=== PATIENT | male | born 1955 | race Caucasian/White ===

== ENCOUNTER 2024-09-18 08:57 | Outpatient (AMB) | payer MEDICARE, SELFPAY ==
--- NOTE | 2024-09-18 08:58 | A.OFFVIS_ITS ---
Vital Signs 09/18/24 08:59 Height 5 ft 10 in Weight 207 lb 3.752 oz BMI 29.7 BP 145/69 H Blood Pressure Location Lt brachial Position Sitting Pulse 85 Pulse Source Pulse Oximeter Pulse Oximetry (%) 96 Intake Visit Reasons: Unilateral inguinal hernia Intake Note: Herbie presents in the office as a new patient for a unilateral inguinal hernia. CC: states he has discomfort when he coughs but not really any pains. Allergies No Known Allergies Allergy (Verified 09/18/24 09:00) Medication List - Last Reconciled 09/18/24 by Abdi Ramey MD atenolol 25 mg PO DAILY atorvastatin 10 mg PO DAILY cholecalciferol (vitamin D3) 25 mcg PO DAILY hydroxyzine HCl 25 mg PO BID PRN magnesium 500 mg PO DAILY rt-pj-nlqat-lutein-herbal 293 120 mcg-150 mcg -50 mg (Alive Men's 50 Plus Multivitamin) tabs PO omega 5-ibm-xpb-fish oil 1,000 (120-180) mg (Fish Oil) 1 cap PO DAILY HPI Comments Details: 68-year-old male patient presenting for evaluation of a right inguinal hernia. He reports a prior history of smoking but apparently quit around last year but continues to have daily coughing episodes. He noted a lump developing in the right groin last year and feels it has increased in size. He was recently evaluated by his primary care provider who recommended repair of the right inguinal hernia. He denies a previous history of hernias or hernia surgery. He denies nausea, vomiting, fever, chills, diarrhea or constipation. He denies difficulty with urinating. He is retired but does like to use his electric bike on a daily basis. [facility] Medical History (Updated 09/18/24 @ 09:36 by Abdi Ramey MD) Hypercholesterolemia Hypertension Surgical History (Updated 09/18/24 @ 09:07 by CORDELIA Boss) Hx of colonoscopy Family History (Updated 09/18/24 @ 09:06 by CORDELIA Boss) Father Pancreatic cancer Review of Systems Const All systems reviewed & are unremarkable except as noted in HPI and below Physical Exam Vital Signs: Last Vital Signs Pulse 85 09/18/24 08:59 BP 145/69 H 09/18/24 08:59 Pulse Ox 96 09/18/24 08:59 BMI result Body Mass Index 29.7 Const General: cooperative and no acute distress Nutritional Appearance: well nourished Orientation/consciousness: patient oriented x3 Limitations: no limitations HEENT Head: Yes normocephalic and Yes atraumatic Ears: hearing grossly normal bilaterally Resp Effort & Inspection: normal respiratory effort, no audible wheezes, no cough and no respiratory distress Cardio Jugular venous distension: no JVD GI Other: Soft, nondistended, large pannus, large right inguinal hernia noted in the standing position. Hernia increases in size with Valsalva maneuvers. Hernia reduces when in the supine position with light pressure. No tenderness is elicited with pressure on the right inguinal hernia. No left inguinal hernias identified. Inspection: Yes normal to inspection Skin Other: Warm, dry, no rash Neuro General: patient oriented x3 Extrem General: Yes no clubbing, cyanosis or edema Assessment & Plan Assessment & Plan (1) Right inguinal hernia: Code(s): K40.90 - Unilateral inguinal hernia, without obstruction or gangrene, not specified as recurrent Category: Medical Plan 68-year-old male patient presenting with a recent onset of a right inguinal hernia. He denies a previous history of hernias or hernia surgery. He denies significant discomfort associated with the hernia. On examination he does indeed have a large right inguinal hernia which is reducible with light pressure. I would agree repair of this right inguinal hernia is recommended. I reviewed the procedure, risks, and alternatives of repair of a right inguinal hernia with mesh. He gives his consent for the surgery and will be scheduled as a short-stay surgery at his earliest convenience. Coding Level of Care Code New Pt Level 4 (45347) Diagnoses Right inguinal hernia K40.90
[2024-09-18 08:59] VITALS: BP 145/69; PULSE 85; O2SAT 96; BMI 29.7
--- OUTSIDE RECORDS SUMMARY | 2024-09-18 10:03 | XMS_ITS | Encounter Summary ---
Author Organization [facility] Address [address] [place] [address] Care Team Providers Care Magazine Worker Name Role Phone Solange Medina MD Primary Care Provider [phone] Reason for Visit * Reason Onset Date Comments Appointment 08/26/2024 1st notification Encounter Details Date Type Department Care Team ([facility] st Contact Info) Description 08/26/2024 Telephone Lung Screening Program - [place] [address] [facility] [address] [place] [address] Rose Allison MA Appointment (1st notification) Social History Tobacco Use Types Packs/Day Years Used Date Smoking Tobacco: Every Day Cigarettes Smokeless Tobacco: Never Alcohol Use Standard Drinks/Week Comments Not Currently 93.3 (1 standard drink = 0.6 oz pure alcohol) Sex and Gender Information Value Date Recorded Sex Assigned at Not on file Legal Sex Male 8:57 PM EST Gender Identity Not on file Sexual Orientation Not on file documented as of this encounter Progress Notes * Rose Allison MA - 08/26/2024 1:25 PM EST Herbie Noah was contacted by the Lung Cancer Screening Program today to confirm the appointment oftheir Lung Cancer Screening. The patient is currently scheduled to have their screening on 2024 , at 745 AM at [facility]. Patient declined the program. Patient stated that he no Longer coming to [facility] for medical needs. Chart disassembled. For all screenings scheduled during the week, the patient will check in at Patient Registration on the first floor of the main hospital. For screenings that take place on the weekend or after 5pm, check-in directly in Radiology. The patient was given the Lung Cancer Screening Program phone number, , to contact if they have any additional questions, concerns or need to reschedule. Patients are encouraged to call our office and reschedule if they are exhibiting any cold-like symptoms, have recently been treated for Pneumonia or Influenza (the flu) or have had another CT of their Chest since their last screening. documented in this encounter Plan of Treatment Not on file documented as of this encounter Visit Diagnoses Not on filedocumented in this encounter Care Teams Magazine Worker Relationship Specialty Start Date End Date Solange Medina MD [address] [place] [id number] PCP - General Internal Medicine 02/14/21 documented as of this encounter
--- OUTSIDE RECORDS SUMMARY | 2024-09-18 10:03 | XMS_ITS | Clinical Summary ---
Author Organization [facility] [address] [facility] Address [address] [place] [address] Phone Care Team Providers Care Production Expert Name Role Phone Solange Medina MD Primary Care Provider [phone] Allergies Active Allergy Reactions Criticality Noted Date Comments Clobetasol Propionate Swelling 12/30/2015 [place] Tar Swelling 12/30/2015 Medications magnesium oxide 500 mg magnesium tablet Take by mouth daily. Active multivitamin (MULTIPLE VITAMINS ORAL) Take by mouth daily. Active albuterol HFA (PROAIR HFA ; PROVENTIL HFA ; VENTOLIN HFA) 90 mcg/actuation inhaler Inhale 2 Puffs into the lungs every 6 hours as needed for Cough or Wheezing. 11/06/2023 Active atenoloL (TENORMIN) 25 mg tablet Take 1 tablet (25 mg total) by mouth 1 (one) time each day. 12/07/2023 Active atorvastatin (LIPITOR) 10 mg tablet Take 1 tablet (10 mg total) by mouth 1 (one) time each day. 12/07/2023 Active cholecalciferol (VITAMIN D-3) 25 mcg (1,000 unit) capsule Take by mouth daily. Active hydrOXYzine HCL (ATARAX) 25 mg tablet Take 1 tablet (25 mg total) by mouth 3 (three) times a day if needed. 05/15/2022 Active naproxen (NAPROSYN) 500 mg tablet Take 1 tablet (500 mg total) by mouth 1 (one) time each day. 11/06/2023 Active omega-3 acid ethyl esters (LOVAZA) 1 gram capsule Take 1,000 mg by mouth daily. Active Active Problems Problem Noted Date Diagnosed Date Hypercholesteremia 10/07/2021 Overweight (BMI 25.0-29.9) 10/07/2021 Anxiety 03/09/2016 Paranoid personality (disorder) 03/06/2016 Overview (07/29/2024): Hospitalized 02/2016 Hyponatremia 02/25/2016 Subclinical hypothyroidism 02/08/2016 Abnormal LFTs (liver function tests) 02/02/2016 Overview (07/29/2024): Associated with alcohol abuse, SGPT 97, SGPT 118, alk phos 144 on 10/28/15 Macrocytic anemia 02/02/2016 Overview (07/29/2024): Associated with alcohol abuse, 10.8/31.6 with MCV of 105.7, vitamin B 12 617 on 10/28/15 Psoriatic arthritis 07/03/2013 Overview (07/29/2024): Onset . Enbrel in past. Humira ~ 2008- until summer 2014 (stopped because the condition had improved.) Diverticulitis of colon without hemorrhage 04/21 Overview (07/29/2024): scattered, colonoscopy Dr Mcpherson 03/15, repeat 2016. Did not respond. 12/28 FIT neg 05/31 cologuard positive Alcohol abuse 11/15/2006 Essential hypertension, benign 11/15/2006 Psoriasis 11/15/2006 Overview (07/29/2024): Saw EDY Elizalde 02/28/16 Started at age 29. Humira since ~ 7146-[address]71. Se[address] Dr. Lebron Diamond Tobacco use disorder 11/15/2006 Overview (07/29/2024): Refused LDCT 07/30 (lack of insurance) 08/30 LDCT stable. 12 mo 08/31, 09/01. 12 mo Encounters Date Type Department Care Team Description 08/26/2024 Telephone Lung Screening Program - [address] [address] Rose Allison MA Appointment (1st notification) from Last 3 Months Immunizations Name Administration Dates Next Due Influenza trivalent, 0.5mL ( Fluad) 65yo and older 04/03/2023 Influenza trivalent, 0.5mL, preservative free (Fluarix; FluLaval; Fluzone) ages 6mo and older (Afluria) 3 years and older 04/22/2014,03/18/2009,05/06/2007 Brisk.io SARS-CoV-2 COVID-19, mRNA, LNP-S, preservative free 04/03/2023,04/24/2022,11/24/2021,04/08 Pneumococcal conjugate 13 va lent (Prevnar 13, PCV13) 2mo and older 05/15/2022 Pneumococcal conjugate 20 va lent (Prevnar 20, PCV 20) 2mo and older 05/11/2023 Pneumococcal polysaccharide 23 valent (Pneumovax 23) 2yo and older 09/25/2013 Respiratory syncytial virus (RSV), unspecified 04/20/2023 Td Tetanus diptheria (Tdvax) 7yo and older 05/22/2023,07/10/2006 Tdap Tetanus diptheria acell ular pertussis (Boostrix; Adacel) 7yo and older 07/03/2013 Zoster Live 06/28/2021,04/28/2021 Zoster recombinant (Shingrix ) 19yo and older 06/28/2021,04/28/2021 Surgical History Surgery Date Site/Laterality Comments COLONOSCOPY 04/04/07 PROCEDURE: HISTORICAL COLONOSCOPY; COMMENT: diverticulosis; repeat in ten years Medical History Medical History Date Comments Tobacco use disorder 11/15/2006 DX:Tobacco use disorder Alcohol abuse, unspecified 11/15/2006 DX:Al cohol abuse, unspecified Other psoriasis and similar disorders 11/15/2006 DX:Other psoriasis and similar disorders; COMMENT: Sees Dr Lebron Diamond Essential hypertension, benign 11/15/2006 D X:Essential hypertension, benign Diverticulosis of colon (wit hout mention of hemorrhage) 04/21/2007 DX:Diverticulosis of colon ( without mention of hemorrhage); COMMENT: scattered, colonoscopy Dr Mcpherson 03/15, repeat 2017 Family History Medical History Relation Name Comments Mental illness Father sleep apnea Diabetes Mother obesity Asthma Sister Thyroid disease Sister Relation Name Status Comments Father (Age 74) pancreatic cancer Maternal Grandfather Maternal Grandmother Mother ischemic bowel Paternal Grandfather Paternal Grandmother Sister Alive Social History Tobacco Use Types Packs/Day Years Used Date Smoking Tobacco: Every Day Cigarettes Smokeless Tobacco: Never Alcohol Use Standard Drinks/Week Comments Not Currently 93.3 (1 standard drink = 0.6 oz pure alcohol) Sex and Gender Information Value Date Recorded Sex Assigned at Not on file Legal Sex Male 8:57 PM EST Gender Identity Not on file Sexual Orientation Not on file Obstetrics History Last Filed Vital Signs Vital Sign Reading Time Taken Comments Blood Pressure 122/71 08/22/2023 8:40 AM EST Pulse 69 08/22/2023 8:40 AM EST Temperature - - Respiratory Rate - - Oxygen Saturation - - Inhaled Oxygen Concentration - - Weight 89.4 kg (197 lb 3.2 oz) 08/22/2023 8:40 A M EST Height 177.8 cm (5' 10 ) 08/22/2023 8:40 AM EST Body Mass Index 28.3 08/22/2023 8:40 AM EST Plan of Treatment Health Maintenance Due Date Last Done Comments Hepatitis A Vaccines (1 of 2 - Risk 2-dose series) 11/10/1975 Colorectal Cancer Screening: Stool Based Tests (FOBT/FIT) 06/17/2022 Depression Screening 06/17/2022 Falls Risk Assessment 06/17/2022 Medicare Annual Wellness Visit 06/17/2022 Social Influencers of Health Screening 06/17/2022 COVID-19 Vaccine ( season) 2024 10/25/2023, 04/03/2023, 04/24/2022, Additional history exists Hypertension/CHF/CAD Annual BMP Blood Test 05/22/2024 05/22/2023 Lung Cancer Screening (Low Dose CT) 09/02/2025 09/02/2024, 09/10/2023, 09/06/2022, Additional history exists Cholesterol Screening (Lipid Panel) 05/22/2028 05/22/2023 RSV Immunization Patients 60+ Years Old (1 - 1-dose 75+ series) 11/10/2031 04/20/2023 DTaP,Tdap,and Td Vaccines (4 - Td or Tdap) 05/22/2033 05/22/2023, 07/03/2013, 07/10/2006 Hepatitis C Screening Completed 02/03/2014 Zoster Vaccines Completed 06/28/2021, 06/09, 04/28/2021, Additional history exists Abdominal Aortic Aneurysm (AAA) Screen Completed 05/17/2022, 05/17/2022 RSV Immunization Patients Under 20 months Aged Out 04/20/2023 No longer eligible based on patient's age to complete this topic Influenza Vaccine Completed 03/13/2024, , 04/22/2014, Additional history exists Pneumococcal Vaccine: 50+ Years Completed 05/20/2024, 05/11/2023, 05/15/2022, Additional history exists HIB Vaccines Aged Out No longer eligi ble based on patient's age to complete this topic HPV Vaccines Aged Out No longer eligi ble based on patient's age to complete this topic Hepatitis B Vaccines Aged Out No long er eligible based on patient's age to complete this topic IPV Vaccines Aged Out No longer eligi ble based on patient's age to complete this topic MMR Vaccines Aged Out No longer eligi ble based on patient's age to complete this topic Meningococcal ACWY Vaccine Aged Out N o longer eligible based on patient's age to complete this topic Meningococcal B Vacine Aged Out No lo nger eligible based on patient's age to complete this topic Varicella Vaccines Aged Out No longer eligible based on patient's age to complete this topic Procedures Procedure Name Priority Date/Time Associated Diagnosis Comments CT LUNG SCREENING LOW DOSE Routine 09/10/2023 5:00 AM EST Encounter for screening for malignant neoplasm of respiratory organs ANNUAL BMP BLOOD TEST Routine 05/22/2023 LIPID PANEL Routine 05/22/2023 US ABDOMINAL AORTA REAL TIME SCREEN STUDY AAA Routine 05/17/2022 7:57 AM EST Encounter for screening for cardiovascular disorders HEPATITIS C SCREENING Routine 02/03/2014 from Last 3 Months or Most Recently Relevant to Health Maintenance Results * CT LUNG SCREENING LOW DOSE (09/10/2023 5:00 AM EST) Anatomical Region Laterality Modality Computed Tomogra phy 09/08/2023 7:21 AM EST Narrative 09/10/2023 5:00 AM EST [facility] Diagnostic Imaging Department [address] [place] [address] Patient: ??KATHYJACQUIE ?/Age/Sex: 1955 - 67 - M Unit#: ??[id number] ? Location/Status: ??SPDICATLS/REG CLI ? Mnemonic/Ordering Site: ??CTLUNGLD/SPCT Ordering Physician: ??VIJI HAYDEN MD CT Lung Screening Low Dose - 09/08/23725 Report Status:Signed Indication: Greater than 20 total pack-year smoking history, asymptomatic current smoker Technique: Low-dose CT scan of the chest obtained as a lung cancer screening study. Multiplanar reformatted images were obtained. ??Dose reduction technique: ASIR (Adaptive statistical iterative reconstruction) and/or AEC (automated exposure control) COMPARISON: August 2022. FINDINGS: Lack of intravenous contrast limits evaluation of the julian, vascular structures and visualized abdominal viscera. Lungs/airways: Trachea and central airways are patent. ??Mild bronchial wall thickening. ??Emphysematous changes. ??Atelectasis in the lingula, similar to prior. 1 mm solid nodule left upper lobe (series 3, image 79), similar to prior. Base of the neck, mediastinum, heart, chest wall, vessels: ??The assessment of hilar lymphadenopathy is difficult without the use of IV contrast. ??No enlarged mediastinal lymphadenopathy. ??Coronary artery calcifications. Upper abdomen: This study was performed without contrast and with lower than standard dose. These factors reduce the sensitivity for detection of small lesions in the upper abdomen. No significant abnormality is seen Bones/soft tissues: Unremarkable IMPRESSION: No suspicious pulmonary nodules Lung RADS 2: Benign Appearance or Behavior - Continue annual screening with LDCT in 12 months. Dictating Physician: ??MAITE MELGOZA MD Electronically Signed by: ??MAITE MELGOZA MD Dic Date/Time: ??09/10/23 0457 Sign date/Time: ??09/10/23 0501 Procedure Note Maite Melgoza MD - 02/25/2024 [facility] Diagnostic Imaging Department [address] [place] [address] Patient: KATHYJACQUIEO.B./Age/Sex: 1955 - 67 - M Unit#: [id number] Location/Status: [facility] Mnemonic/Ordering Site: [facility] Ordering Physician: VIJI HAYDEN MD CT Lung Screening Low Dose - 09/08/23725 Report Status:Signed Indication: Greater than 20 total pack-year smoking history,asymptomatic current smoker Technique: Low-dose CT scan of the chest obtained as a lung cancerscreening study. Multiplanar reformatted images were obtained. Dose reductiontechnique: ASIR (Adaptive statistical iterative reconstruction) and/or AEC(automated exposure control) COMPARISON: August 2022. FINDINGS: Lack of intravenous contrast limits evaluation of the julian,vascular structures and visualized abdominal viscera. Lungs/airways: Trachea and central airways are patent. Mild bronchialwall thickening. Emphysematous changes. Atelectasis in the lingula, similarto prior. 1 mm solid nodule left upper lobe (series 3, image 79), similar toprior. Base of the neck, mediastinum, heart, chest wall, vessels: The assessmentof hilar lymphadenopathy is difficult without the use of IV contrast. Noenlarged mediastinal lymphadenopathy. Coronary artery calcifications. Upper abdomen: This study was performed without contrast and with lowerthan standard dose. These factors reduce the sensitivity for detection ofsmall lesions in the upper abdomen. No significant abnormality is seen Bones/soft tissues: Unremarkable IMPRESSION: No suspicious pulmonary nodules Lung RADS 2: Benign Appearance or Behavior - Continue annual screeningwith LDCT in 12 months. Dictating Physician: MAITE MELGOZA MD Electronically Signed by: MAITE MELGOZA MD Dic Date/Time: 09/10/23 045 Sign date/Time: 09/10/23 0500 Viji Hayden MD IMG CT PROCEDURES Final Result * Annual BMP Blood Test (05/22/2023) Pathologist [facility] Annual BMP Blood Test abstracted Result [facility] Historical Provider HEALTH MAINTENANCE Final Result * Lipid panel (05/22/2023) Pathologist [facility] LDL/HDL Ratio 3 0 - 4 Triglycerides 73 0 - 150 mg/dL Cholesterol 140 0 - 200 mg/dL HDL 46 >=40 mg/dL LDL Cholesterol 80 0 - 100 mg/dL Blood Venous blood specimen / Unknown Result [facility] Historical Provider LAB BLOOD ORDERABLES Gabbi l Result * ABDOMINAL AORTA REAL TIME SCREEN STUDY AAA (05/17/2022 7:57 AM EST) Anatomical Region Laterality Modality Ultrasound 05/15/2022 9:49 AM EST Narrative 05/17/2022 8:03 AM EST History: Screening for abdominal aortic aneurysm. Ultrasound of the abdominal aorta: The abdominal aorta is normal in course, caliber and configuration. Proximal aortic AP diameter is 2.2 cm maximum. Mid aortic diameter is 1.7 cm, and distal aortic diameter is 1.7 cm. The common iliac arteries are normal in caliber as well. IMPRESSION: Negative screening examination for abdominal aortic aneurysm. Procedure Note Tomas Gilmore MD - 08/14/2023 History: Screening for abdominal aortic aneurysm. Ultrasound of the abdominal aorta: The abdominal aorta is normal incourse, caliber and configuration. Proximal aortic AP diameter is 2.2 cm maximum. Mid aorticdiameter is 1.7 cm, and distal aortic diameter is 1.7 cm. The common iliac arteries are normalin caliber as well. IMPRESSION: Negative screening examination for abdominal aortic aneurysm. Solange Medina MD IMG US PROCEDURES Final Result * Hepatitis C Screening (02/03/2014) Hepatitis C Screening abstracted Historical Provider HEALTH MAINTENANCE Final Result from Last 3 Months or Most Recently Relevant to Health Maintenance Insurance [employer] Care Teams Production Expert Relationship Specialty Start Date End Date Solange Medina MD [address] [place] [id number] PCP - General Internal Medicine 02/14/21
--- OUTSIDE RECORDS SUMMARY | 2024-09-18 10:03 | XMS_ITS | Encounter Summary ---
Author Organization Formerly [facility] Address [address] [place] [address] Care Team Providers Care [place] Machine Operator Name Role Phone Aminata Linda PA-C Primary Care Provi chrissy Nahid Preciado MD Unavailable [phone] Encounter Details Date Type Department Care Team (Late st Contact Info) Description 08/27/[address] [phone] Aminata Linda PA-C [address] [place] [address] Social History Tobacco Use Types Packs/Day Years Used Date Smoking Tobacco: Former Cigarettes Q uit: 05/21/2024 Smokeless Tobacco: Former Comments:currently vaping Alcohol Use Standard Drinks/Week Comments Not Currently 0 (1 standard drink = 0.6 oz pur e alcohol) [facility] Utilities Answer Date Recorded In the past 12 months has [employer] electric, gas, oil, or water company threatened to shut off services in your home? No 05/19/2024 Social Connection and Isolation Panel [NHANES] A nswer Date Recorded In a typical week, how many times do you talk on the phone with family, friends, or neighbors? Never 05/19/2024 Frequency of Social Gatherings with Friends and Family Not on file 05/19/2024 Attends Anglican Services Not on file 05/19 Active Member of Clubs or Organizations Not on f ile 05/19/2024 Attends Club or Organization Meetings Not on serenity e 05/19/2024 Marital Status Not on file 05/19/2024 AUDIT-C Answer Date Recorded Q1: How often do you have a drink containing alc ohol? Never 05/19/2024 Average Number of Drinks Not on file 024 Frequency of Binge Drinking Not on file 05/09 PHQ-2 Answer Date Recorded PHQ-2 Total Score 0 05/19/2024 Hunger Vital Sign Answer Date Recorded Within the past 12 months, y ou worried that your food would run out before you got the money to buy more. Never true 05/19/20 24 Within the past 12 months, t he food you bought just didn't last and you didn't have money to get more. Never true 05/19/2024 PRAPARE - Transportation Answer Date Re corded In the past 12 months, has l ack of transportation kept you from medical appointments or from getting medications? No 05/09 In the past 12 months, has l ack of transportation kept you from meetings, work, or from getting things needed for daily living? No 05/19/2024 Housing Stability Vital Sign Answer Jed e Recorded In the last 12 months, was t here a time when you were not able to pay the mortgage or rent on time? No 05/19/2024 In the past 12 months, how m any times have you moved where you were living? 0 05/19/2024 At any time in the past 12 m [facility], were you homeless or living in a custodial (including now)? No 05/19/2024 Sex and Gender Information Value Date Recorded Sex Assigned at Male 11/08/2023 3:45 AM EDT Gender Identity Male 11/08/2023 3:45 AM EDT Sexual Orientation Heterosexual (straight) 11/07 3:45 AM EDT documented as of this encounter Miscellaneous Notes * Telephone Encounter - Lizy Gilliland MA - 08/27/2024 2:04 PM EST Spoke with Herbie and he is aware of his results and to recheck a B12 and folate. Orders are at [facility]. Patient also aware that Dr Belle isn't accepting new patients and to call his insurance companyto see where he can go. * Telephone Encounter - Joan Patel - 08/27/2024 9:25 AM EST Patient is calling back in regards to call below for labs, fyi he is home he stated, * Telephone Encounter - Lizy Gilliland MA - 08/27/2024 8:46 AM EST Left message for patient to call for lab results from Dermatology. B12 and Folic labs were placed in [facility]. Faxed labs to [facility]. * Telephone Encounter - Aminata Linda PA-C - 08/27/2024 7:56 AM EST Is let patient know received his blood work from dermatology that was done at [facility]. I do want to check a vitamin B12 and folic acid since his MCV is up and his alk phos is also up. Someone to put some orders into [facility] for patient to do. Please fax platelet count labs to [facility] hematology patient is established there for low plateletcount. Please tell patient to call and follow-up with them. documented in this encounter Plan of Treatment Upcoming Encounters Date Type Department Care Team (Late st Contact Info) Description 09/22/2024 8:00 AM EDT Appointment [facility] Laboratory & Rehabilitation [address] [place] [phone] Panchito Hurley MD [address] [facility] [address] [place] [address] 11/06/2024 2:45 PM EDT Appointment [facility] [place] [address]ARY[address] [place] [address] Nahid Preciado MD [address] [place] [address] 12/11/2024 11:00 AM EDT Office Visit [facility] [address] [facility] [address] [place] [address] Aminata Linda PA-C [address] [place] [address] 01/20/2025 1:45 PM EDT Office Visit [facility] Pul[facility] [place] [address] [place] [phone] Panchito Hurley MD [address] [place] [phone] documented as of this encounter Visit Diagnoses Not on filedocumented in this encounter Care Teams [place] Machine Operator Relationship Specialty Start Date End Date Aminata Linda PA-C [address] [place] [address] PCP - General Internal Medicine 11/07/23 Nahid Preciado MD [address] [place] [phone] Primary Tester Compressed Gases Cardiovascular Disease 08/11/24 documented as of this encounter
--- OUTSIDE RECORDS SUMMARY | 2024-09-18 10:03 | XMS_ITS | Encounter Summary ---
Author Organization [facility] Address [address] [place] [address] Care Team Providers Care Oracle Analyst Name Role Phone Aminata Linda PA-C Primary Care Provi chrissy Nahid Preciado MD Unavailable [phone] Encounter Details Date Type Department Care Team (Late st Contact Info) Description 08/26/[address] [phone] Aminata Linda PA-C [address] [place] [address] Social History Tobacco Use Types Packs/Day Years Used Date Smoking Tobacco: Former Cigarettes Q uit: 05/21/2024 Smokeless Tobacco: Former Comments:currently vaping Alcohol Use Standard Drinks/Week Comments Not Currently 0 (1 standard drink = 0.6 oz pur e alcohol) [facility] Utilities Answer Date Recorded In the past 12 months has [employer] electric, gas, oil, or water company threatened to shut off services in your home? No 05/19/2024 Social Connection and Isolation Panel [NHANES] A nswer Date Recorded In a typical week, how many times do you talk on the phone with family, friends, or neighbors? Never 05/19/2024 Frequency of Social Gatherings with Friends and Family Not on file 05/19/2024 Attends Confucianism Services Not on file 05/19 Active Member [...] any time in the past 12 m [facility], were you homeless or living in a [place] [facility] [place] facility (including now)? No 05/19/2024 Sex and Gender Information Value Date Recorded Sex Assigned at Male 11/08/2023 3:45 AM EDT Gender Identity Male 11/08/2023 3:45 AM EDT Sexual Orientation Heterosexual (straight) 11/07 3:45 AM EDT documented as of this encounter Miscellaneous Notes * Telephone Encounter - Lizy Gilliland MA - 08/26/2024 9:38 AM EST Referral was closed out for GI patient didn't follow thru. Referral sent to Dr Belle at [facility] and referral for general surgery to Dr Ramey * Telephone Encounter - Aminata Linda PA-C - 08/26/2024 9:12 AM EST Pt [place] [facility] he is overdue for his colonoscopy. documented in this encounter Plan of Treatment Upcoming Encounters Date Type Department Care Team (Late st Contact Info) Description 09/22/2024 8:00 AM EDT Appointment [facility] Pulmonary Laboratory & Rehabilitation [address] [place] [phone] Panchito Hurley MD [address] [place] [phone] 11/06/2024 2:45 PM EDT Appointment [facility] [place] [address] [phone] Nahid Preciado MD [address] [place] [phone] 12/11/2024 11:00 AM EDT Office Visit [address] [place] [phone] Aminata Linda PA-C [address] [place] [address] 01/20/2025 1:45 PM EDT Office Visit [facility] Pulmonary [place] [address] [place] [phone] Panchito Hurley MD [address] [phone] documented as of this encounter Visit Diagnoses Not on filedocumented in this encounter Care Teams Oracle Analyst Relationship Specialty Start Date End Date Aminata Linda PA-C [address] [place] [address] PCP - General Internal Medicine 11/07/23 Nahid Preciado MD [address] [place] [phone] Primary Concrete Mixing Truck Driver Cardiovascular Disease 08/11/24 documented as of this encounter
--- OUTSIDE RECORDS SUMMARY | 2024-09-18 10:03 | XMS_ITS | Clinical Summary ---
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 11/06/2023 Active triamcinolone (KENALOG) 0.1 % cream PLEASE SEE ATTACHED FOR DETAILED DIRECTIONS 09/20/2023 Active betamethasone dipropionate augmented (DIPROLENE-AF) 0.05 % cream Apply topically 2 (two) times a day. Active omega-3 fatty acids (FISH OIL) 1000 MG Cap capsule Take by mouth. Active cholecalciferol (CHOLECALCIFEROL) 25 MCG (1000 UT) tablet Take 1 tablet (1,000 Units total) by mouth daily. Active Multiple Vitamin tablet Take 1 tablet by mouth daily. Active atorvastatin (LIPITOR) 10 MG tabletIndications:Oth er hyperlipidemia TAKE 1 TABLET BY MOUTH EVERY DAY 90 tablet 1 03/06/2024 Active atenolol (TENORMIN) 25 MG tabletIndications:Poonam esperanza hypertension TAKE 1 TABLET (25 MG TOTAL) BY MOUTH DAILY. 90 tablet 1 03/06/2024 Active hydrOXYzine HCl (ATARAX) 25 MG tabletIndications:Anx iety Take 1 tablet (25 mg total) by mouth 3 (three) times a day. 60 tablet 05/20/2024 Active risankizumab-rzaa (Skyrizi Pen) 150 mg/mL Solution Auto-injector Inject 1 mL (150 mg total) under the skin. 07/28/2024 Active Active Problems Problem Noted Date Diagnosed Date Shortness of breath 09/08/2024 Psoriatic arthritis 05/20/2024 History of ETOH abuse 05/20/2024 Anxiety 05/20/2024 Thrombocytopenia 11/14/2023 Primary hypertension 11/07/2023 Other hyperlipidemia 11/07/2023 Tobacco use 11/07/2023 Overview (11/07/2023): 45- 100+pack yr Psoriasis 11/07/2023 Resolved Problems Problem Noted Date Diagnosed Date Resolved Date Overweight (BMI 25.0-29.9) 10/07/2021 0 08/26/2024 Paranoid personality (disorder) 03/06/2016 08/26/2024 Overview (08/26/2024): Hospitalized 02/2016 Hyponatremia 02/25/2016 08/26/2024 Subclinical hypothyroidism 02/08/2016 0 08/26/2024 Abnormal LFTs (liver function tests) 02/02/2016 08/26/2024 Overview (08/26/2024): Associated with alcohol abuse, SGPT 97, SGPT 118, alk phos 144 on 10/28/15 Macrocytic anemia 02/02/2016 08/26/2024 Overview (08/26/2024): Associated with alcohol abuse, 10.8/31.6 with MCV of 105.7, vitamin B 12 617 on 10/28/15 Diverticulitis of colon without hemorrhage 04/21/2007 08/26/2024 Overview (08/26/2024): scattered, colonoscopy Dr Mcpherson 03/15, repeat 2016. Did not respond. 12/28 FIT neg 05/31 cologuard positive Alcohol abuse 11/15/2006 08/26/2024 Encounters Date Type Department Care Team Description 09/15/[address] [phone] Aminata Linda PA-C 09/08/2024 9:45 AM EST Office Visit [facility] Pulmonary [address] [phone] Jeanette Mcgrath MD Tobacco use (Primary Dx); Shortness of breath 09/08/2024 Travel 08/27/2024 Orders Only [address] [phone] Aminata Linda PA-C Abnormal CBC (Primary Dx) 08/27/[address] [phone] Aminata Linda PA-C 08/26/2024 9:00 AM EST Office Visit [address] [phone] Aminata Linda PA-C Screen for colon cancer (Primary Dx); Non-recurrent unilateral inguinal hernia without obstruction or gangrene; Primary hypertension; Tobacco use; Thrombocytopenia; Psoriasis; Abnormal EKG; Chronic cough 08/26/[address] [phone] Aminata Linda PA-C 08/26/[address] [phone] Aminata Linda PA-C 08/26/[address] [phone] Aminata Linda PA-C 08/26/2024 Travel 08/04/2024 9:15 AM EST Ancillary Procedure [facility] [address] [place] [phone] Nahid Preciado MD BENZ (dyspnea on exertion); Abnormal ECG 08/04/2024 Travel 07/22/2024 Orders Only [address] [phone] Nahid Preciado MD BENZ (dyspnea on exertion) (Primary Dx) 07/21/2024 8:00 AM EST Consult [address] [phone] Aminata Linda PA-C Longhitano, Joseph P, MD Encounter for consultation (Primary Dx); BENZ (dyspnea on exertion); Abnormal ECG 07/21/[address] [phone] Nahid Preciado MD Appointment 07/21/2024 Travel from Last 3 Months Immunizations Name Administration Dates Next Due Influenza, Unspecified 03/13/2024 Pneumococcal Conjugate 20-Valent 05/20/2024 Zoster Vaccine Recombinant (Shingrix) 06/28/2021 ,04/28/2021 Family History Medical History Relation Name Comments Pancreatic cancer Father Other Mother Ischemic coliti s Asthma Sister Relation Name Status Comments Father Mother Sister Alive Social History Tobacco Use Types Packs/Day Years Used Date Smoking Tobacco: Former Cigarettes 2.3 41.9 1 975 - 05/22/2024 Smokeless Tobacco: Former Comments:currently vaping Alcohol Use Standard Drinks/Week Comments Not Currently 0 (1 standard drink = 0.6 oz pur e alcohol) [facility] Utilities Answer Date Recorded In the past 12 months has e electric, gas, oil, or water company threatened to shut off services in your home? No 05/19/2024 Social Connection and Isolation Panel [NHANES] A nswer Date Recorded In a typical week, how many times do you talk on the phone with family, friends, or neighbors? Never 05/19/2024 Frequency of Social Gatherings with Friends and Family Not on file 05/19/2024 Attends Sikhism Services Not on file 05/19 Active Member [...] any time in the past 12 m [facility], were you homeless or living in a group home (including now)? No 05/19/2024 Sex and Gender Information Value Date Recorded Sex Assigned at Male 11/08/2023 3:45 AM EDT Gender Identity Male 11/08/2023 3:45 AM EDT Sexual Orientation Heterosexual (straight) 11/07 3:45 AM EDT Last Filed Vital Signs Vital Sign Reading Time Taken Comments Blood Pressure 120/80 09/08/2024 9:38 AM EST Pulse 57 09/08/2024 9:38 AM EST Temperature 35.8 ??C (96.5 ??F) 09/08/2024 9:38 AM ES T Respiratory Rate 18 08/26/2024 8:42 AM EST Oxygen Saturation 96% 09/08/2024 9:38 AM EST Inhaled Oxygen Concentration - - Weight 97.5 kg (215 lb) 09/08/2024 9:38 AM EST Height 177.8 cm (5' 10 ) 09/08/2024 9:38 AM EST Body Mass Index 30.85 09/08/2024 9:38 AM EST Plan of Treatment Upcoming Encounters Date Type Department Care Team (Late st Contact Info) Description 09/22/2024 8:00 AM EDT Appointment [facility] Pulmonary Laboratory & Rehabilitation [address] [place] [phone] Jeanette Mcgrath MD [address] [place] [phone] 11/06/2024 2:45 PM EDT Appointment [facility] [place] [address] [phone] Nahid Preciado MD [address] [place] [address] [place] [address] 12/11/2024 11:00 AM EDT Office Visit [address] [place] [phone] Aminata Linda PA-C [address] [place] [address] 01/20/2025 1:45 PM EDT Office Visit [facility] Pulmonary [address] [phone] Jeanette Mcgrath MD [address] [phone] Health Maintenance Due Date Last Done Comments Hepatitis C Virus Screening 1956 Quantiferon Gold TB 1966 Physical 1974 DTaP/Tdap/Td Vaccines (1 - Tdap) 11/10/1975 Colonoscopy 2001 Abdominal Aortic Aneurysm (AAA) Screening 2021 COVID-19 Vaccine (5 - season) 2024 04/03/2023, 04/24/2022, 11/24/2021, Additional history exists Annual Wellness Visit 05/21/2025 05/20/2024 Lung Cancer Screening (LDCT) 09/02/2025 09/02/2024 RSV Vaccine 60 years and older and Patients (1 - 1-dose 75+ series) 11/10/2031 Zoster (Shingles) Vaccine Completed 06/28/2021, Influenza Vaccine Completed 03/13/2024, , 04/22/2014, Additional history exists Pneumococcal Vaccines 50+ Completed 05/20/2024 Hepatitis B Vaccines Aged Out No long er eligible based on patient's age to complete this topic Procedures Procedure Name Priority Date/Time Associated Diagnosis Comments COMPLETE BLOOD COUNT, WITH DIFFERENTIAL Routine 09/03/2024 8:17 AM EST Thrombocytopenia PSA Routine 09/03/2024 8:11 AM EST Tobacco use Primary hypertension Psoriasis Other hyperlipidemia CT CHEST LOW DOSE CANCER ANNUAL SCREENING Routine 09/02/2024 9:26 AM EST Tobacco use VITAMIN B12 AND FOLATE Routine 08/29/2024 9:21 AM EST Abnormal CBC EXERCISE SPECT MYOCARDIAL PERFUSION Routine 08/04/2024 9:55 AM EST BENZ (dyspnea on exertion) Abnormal ECG COMPREHENSIVE METABOLIC PANEL Routine 07/25/2024 9:07 AM EST BENZ (dyspnea on exertion) LIPOPROTEIN (A) Routine 07/25/2024 9:07 AM EST BENZ (dyspnea on exertion) LIPID PANEL REFLEX DIRECT LDL Routine 07/25/2024 9:07 AM EST BENZ (dyspnea on exertion) ECG 12-LEAD Routine 07/21/2024 7:59 AM EST Encounter for consultation from Last 3 Months Results * (ABNORMAL) Complete Blood Count, with Differential (09/03/2024 8:17 AM EST) White Blood Cell Count 6.1 3.8 - 10.8 Thousand/ uL [facility] Red Blood Cell Count 4.32 4.20 - 5.80 Million/u L [facility] Hemoglobin 14.5 13.2 - 17.1 g/dL [facility] Hematocrit 42.6 38.5 - 50.0 % [facility] MCV 98.6 80.0 - 100.0 fL [facility] MCH 33.6(H) 27.0 - 33.0 pg [facility] MCHC 34.0 32.0 - 36.0 g/dL [facility] Comment: For adults, a slight decrease in the calculated MCHC value (in the range of 30 to 32 g/dL) is most likely not clinically significant; however, it should be interpreted with caution in correlation with other red cell parameters and the patient's clinical condition. RDW 11.8 11.0 - 15.0 % [facility] Platelet Count 201 140 - 400 Thousand/ uL [facility] MPV 9.4 7.5 - 12.5 fL [facility] Abs Neutrophils Auto 4,301 1,500 - 7,800 cells/uL [facility] Abs Lymphocytes Auto 1,104 850 - 3,900 cells/uL [facility] Abs Monocytes Auto 439 200 - 950 cells/uL [facility] Abs Eosinophils Auto 207 15 - 500 cells/uL [facility] Abs Basophils Auto 49 0 - 200 cells/uL [facility] Neutrophils Auto 70.5 % [facility] Lymphocytes Auto 18.1 % [facility] Monocytes Auto 7.2 % [facility] Eosinophils Auto 3.4 % [facility] Basophils Auto 0.8 % [facility] Comment: ? Your request to have a duplicate copy faxed has been acknowledged. ?Queued to: ??[id number] Blood specimen (specimen) Blood specimen / Unknown 09/03/2024 8:17 AM EST 09/03/2024 8:18 AM EST Narrative [facility] - 09/03/2024 8:32 PM EST FASTING:NO FASTING: NO Aminata Linda PA-C LAB BLOOD O RDERABLES [facility] [address] [place] [phone] * PSA (09/03/2024 8:11 AM EST) PSA, Total 0.81 < OR = 4.00 ng/mL [facility] Comment: The total PSA value from this assay system is standardized against the WHO standard. The test result will be approximately 20% lower when compared to the equimolar-standardized total PSA ([place]). Comparison of serial PSA results should be interpreted with this fact in mind. This test was performed using the Siemens chemiluminescent method. Values obtained from different assay methods cannot be used interchangeably. PSA levels, regardless of value, should not be interpreted as absolute evidence of the presence or absence of disease. ? Your request to have a duplicate copy faxed has been acknowledged. ?Queued to: ??[id number] Blood specimen (specimen) Blood specimen / Unknown 09/03/2024 8:11 AM EST 09/03/2024 8:12 AM EST Narrative [facility] - 09/03/2024 10:46 PM EST SPLIT 11/13/2023 FROM [id number] FASTING:NO FASTING: NO Aminata Linda PA-C LAB BLOOD O RDERABLES [employer] system master[employer] [address] [place] [phone] * CT Chest Low Dose Cancer Annual Screening (09/02/2024 9:26 AM EST) Anatomical Region Laterality Modality Chest Computed Tomogra phy 09/02/2024 9:00 AM EST 09/02/2024 9:00 AM EST Impressions 09/05/2024 3:38 PM EST 1. ??No evidence of pulmonary malignancy. 2. ??Mild emphysema and bronchial thickening. 3. ??Moderate coronary calcifications. ASSESSMENT: 1. Lung-RADS Category 2: Benign appearance or behavior of nodules. N/A 2. Lung-RADS Category S: Negative. There are no clinically significant or potentially clinically significant findings not related to the lungs requiring urgent additional evaluation. RECOMMENDATION: Continued routine annual low-dose CT lung screening in 1 year is recommended. An order for CT CHEST LOW DOSE CANCER SCREENING ([id number]) can be placed. Electronically signed by: ??Nicholas Harding MD ??09/05/2024 03:38 PM EST RP Thank you for referring your patient to us, Nicholas Harding MD [phone] (Electronically Signed - 09/05/2024 15:38) Copy: PATIENT , ?? JEANETTE MCGRATH MD [facility] [place] [facility] [address] [facility] [address] [place], [place] [phone] Narrative 09/05/2024 3:38 PM EST EXAMINATION: CT LOW-DOSE SCREENING CHEST WITHOUT CONTRAST CLINICAL INFORMATION: Annual lung cancer screening. Tobacco use. The patient is a current smoker with a 60 pack-year history of smoking. COMPARISON: None available. TECHNIQUE: Multidetector volumetric non-contrast CT imaging of the chest was obtained on a [employer]a 660 scanner using low-dose screening CT technique. Axial thin section 0.625 mm reformations in soft tissue and lung windows were obtained. Sagittal and coronal reformations were obtained. Axial MIP images were also created and reviewed. RECONSTRUCTED WIDTH: 1.25 mm x 1.[address] examination was performed using dose optimization techniques as appropriate, variously including the following: *Automated exposure control *Adjustment of mA and/or kV according to patient size (this includes techniques or standardized protocols for targeted exams where dose is matched to indication/reason for exam; i.e. extremities or head) *Use of iterative reconstruction technique TOTAL EXAM DLP: 174.87 mGy-cm. CTDIvol: 4.25 mGy. FINDINGS: PULMONARY NODULES: No suspicious pulmonary nodules. There is a single tiny 3 mm subpleural posterior right upper lobe nodule (7:120). LUNGS: Lungs bilaterally symmetrically expanded. There is mild emphysema and bronchial thickening without bronchiectasis. There is a tiny area of mucus impaction in a right upper lobe bronchus (7:191). No effusion or pneumothorax. Central airways patent. MEDIASTINUM: No mediastinal, hilar or axillary adenopathy or free fluid collection. CORONARY ARTERY CALCIFICATION: Moderate THYROID GLAND: Unremarkable to the extent seen. CARDIOVASCULAR STRUCTURES: Aortic and heart size normal. No pericardial effusion. CHEST WALL/AXILLA: Unremarkable. UPPER ABDOMEN: Included portions of the solid organs in the upper abdomen unremarkable on noncontrast imaging. OSSEOUS STRUCTURES: No suspicious focal findings. Procedure Note Nicholas Harding MD - 09/05/2024 EXAMINATION: CT LOW-DOSE SCREENING CHEST WITHOUT CONTRAST CLINICAL INFORMATION: Annual lung cancer screening. Tobacco use. The patient is a current smokerwith a 60 pack-year history of smoking. COMPARISON: None available. TECHNIQUE: Multidetector volumetric non-contrast CT imaging of the chest was obtainedon a [employer] [place] 660 scanner using low-dose screening CT technique. Axialthin section 0.625 mm reformations in soft tissue and lung windows wereobtained. Sagittal and coronal reformations were obtained. Axial MIP images were also created andreviewed. RECONSTRUCTED WIDTH: 1.25 mm x 1.[address] examination was performed using dose optimization techniques asappropriate, variously including the following: *Automated exposure control *Adjustment of mA and/or kV according to patient size (this includestechniques or standardized protocols for targeted exams where dose ismatched to indication/reason for exam; i.e. extremities or head) *Use of iterative reconstruction technique TOTAL EXAM DLP: 174.87 mGy-cm. CTDIvol: 4.25 mGy. FINDINGS: PULMONARY NODULES: No suspicious pulmonary nodules. There is a single tiny3 mm subpleural posterior right upper lobe nodule (7:120). LUNGS: Lungs bilaterally symmetrically expanded. There is mild emphysemaand bronchial thickening without bronchiectasis. There is a tiny area ofmucus impaction in a right upper lobe bronchus (7:191). No effusion orpneumothorax. Central airways patent. MEDIASTINUM: No mediastinal, hilar or axillary adenopathy or free fluidcollection. CORONARY ARTERY CALCIFICATION: Moderate THYROID GLAND: Unremarkable to the extent seen. CARDIOVASCULAR STRUCTURES: Aortic and heart size normal. No pericardialeffusion. CHEST WALL/AXILLA: Unremarkable. UPPER ABDOMEN: Included portions of the solid organs in the upper abdomenunremarkable on noncontrast imaging. OSSEOUS STRUCTURES: No suspicious focal findings. IMPRESSION: 1. No evidence of pulmonary malignancy. 2. Mild emphysema and bronchial thickening. 3. Moderate coronary calcifications. ASSESSMENT: 1. Lung-RADS Category 2: Benign appearance or behavior of nodules. N/A 2. Lung-RADS Category S: Negative. There are no clinically significant orpotentially clinically significant findings not related to the lungsrequiring urgent additional evaluation. RECOMMENDATION: Continued routine annual low-dose CT lung screening in 1 year isrecommended. An order for CT CHEST LOW DOSE CANCER SCREENING ([id number]) canbe placed. Electronically signed by: Nicholas Harding MD 09/05/2024 03:38 PM EST RPWorkstation: [id number] Thank you for referring your patient to us, Nicholas Harding MD [phone] (Electronically Signed - 09/05/2024 15:38) Copy: PATIENT , JEANETTE MCGRATH MD [facility] [place] [address] [place] [address] [place] [address] [facility] [place] [address] Aminata Linda PA-C [facility] CT NICOLA HALE * (ABNORMAL) Vitamin B12 and Folate (08/29/2024 9:21 AM EST) Vitamin B12 1,157(H) 200 - 1,100 pg/mL [facility] [employer] Folate, Serum >24.0 ng/mL [facility] Comment: ? Reference Range ? Low: ? <3.4 ? Borderline: ?3.4-5.4 ? Normal: ?>5.4 ? Your request to have a duplicate copy faxed has been acknowledged. ?Queued to: ??[id number] Blood Blood specimen / Unknown 08/29/2024 9:21 AM EST 08/29/2024 9:22 AM EST Narrative [facility] - 08/30/2024 1:35 AM EST FASTING:UNKNOWN FASTING: UNKNOWN Aminata Linda PA-C LAB BLOOD O RDERABLES [facility] [address] [place] [phone] * EXERCISE SPECT MYOCARDIAL PERFUSION-MULTI (08/04/2024 9:55 AM EST) Target HR 153 bpm Target HR 153 bpm Resting HR 57 bpm Baseline Systolic BP 146 mmHg Baseline Diastolic BP 81 mmHg 02 sat rest 98 % Hood Treadmill Score 5 Exercise duration (min) 5 mins Exercise duration (sec) 7 secs Angina Index 0 Estimated workload 7.[address] Depression (mm) 0 mm Post Stress LVEF 73 % Anatomical Region Laterality Modality Stress 08/04/2024 9:21 AM EST Narrative 08/04/2024 4:50 PM EST ?Left ventricular perfusion is normal. ?Post-stress ejection fraction is 73%. The left ventricular cavity size is normal. ?ECG response to stress was negative maximal (peak HR > 85%). ?A Humberto protocol stress test was performed. Overall, the patient's exercise capacity was mildly impaired. The patient exercised for 5 minutes and 7 seconds (7.0 METS). Achieved 86% MPHR ?No chest pain, chest pressure, or palpitaions. + significant shortness of breath (resolved quickly with rest) ?Test terminated due to fatigue/target heart rate achieved/dyspnea. ?Normal HR response. Hypertensive BP response (146/81 @ rest --> 238/74) ?No diagnostic ischemic ECG changes by strict ST criteria. ?+ PAC's, no other new No new arrhythmias Normal exercise sestamibi perfusion imaging. ??Left ventricular cavity size was normal at rest with no change on stress images. ??Distribution of Tc 99m-sestamibi in the left ventricle reveals medium size area of fixed perfusion abnormality involving the entire extent of the inferior wall with normal wall motion consistent with artifact. ??No reversible perfusion defects were noted. ??LV systolic function was normal with post stress LVEF of 73%. Stress Findings A Humberto protocol stress test was performed. The patient's exercise capacity was mildly impaired. The patient exercised for 5 minutes and 7 seconds (7.0 METS). The patient reported shortness of breath during exercise stress. The patient experienced no angina during the test. The test was stopped because the patient experienced dyspnea. The patient requested the test to be stopped. Isotope Administration 10.3 mCi of Tc-99m sestamibi IV was injected on 08/04/2024 at rest with rest imaging obtained 45-60 minutes later. Full 12 lead ECG monitoring was performed during stress. At peak stress the patient received 31.4 mCi of Tc-99m sestamibi IV on 08/04/2024 followed by stress imaging in 15-60 minutes. The rest injection was in the right antecubital fossa. The stress injection was in the right antecubital fossa. Nuclear Study Quality A myocardial perfusion 1-day rest/stress protocol was performed. Overall image quality was good. No attenuation correction was used. Gated images were acquired during the study. The study was performed on a [employer] SPECT camera. Perfusion Comments Left ventricular perfusion is normal. Perfusion Defect There is a stress perfusion defect that is medium in size with moderate reduction in tracer uptake present in the apical to basal inferior segment(s) that is fixed with rest images. There is normal wall motion in the defect area. The defect appears to be an artifact caused by subdiaphragmatic activity. Perfusion Defect Conclusion There is no evidence of transient ischemic dilation (TID). Stress Function Defect Post-stress ejection fraction is 73%. The left ventricular cavity size is normal. Rest Function Defect The left ventricular cavity size is normal. Complication The patient experienced no complications during stress. Nuclear Prior Study There is no prior study available for comparison. History Herbie Zamora is a 68 y.o. male who presents for cardiac testing. The indication for the exam is shortness of breath and abnormal ECG. The patient's symptoms include: ? ? no chest pain ? ? no shortness of breath The patient's cardiac risk factors include: ? ? no diabetes mellitus ? ? hyperlipidemia ? ? hypertension ? ? family history of CAD ? ? former nicotine user The patient's cardiac history include: ? ? no coronary artery disease (CAD) ? ? no myocardial infarction ? ? no PCI ? ? no CABG ? ? no CHF He had no prior cardiac testing. Atorvastatin 10 mg Rest ECG ECG demonstrates normal sinus rhythm with normal axis and intervals and no ST or T wave changes. ECG was interpretable. Recovery ECG There were no ECG changes noted during recovery. The patient experienced no anginal symptoms during recovery. Stress Conclusion ECG response to stress was negative maximal (peak HR > 85%). The patient's blood pressure demonstrated a hypertensive response and their heart rate demonstrated a normal response to exercise stress. ECG quality was good. Stress ECG No ischemic ST changes were noted during stress. There were no arrhythmias during stress. Perfusion Scoring Stress Summed Score: 6 Percent Normal: 8.82% Moderate count reduction in the following segments: basal inferior, mid inferior and apical inferior. All other segments are normal. Perfusion Scoring Resting Summed Score: 6 Percent Normal: 8.82% Moderate count reduction in the following segments: basal inferior, mid inferior and apical inferior. All other segments are normal. Perfusion Scores: SRS Score: 6 Percentage Abnormal: 8.82% Perfusion Scores: SSS Score: 6 Percentage Abnormal: 8.82% Perfusion Scores: SDS Score: 0 Percentage Abnormal: 0.00% Nahid Preciado MD CV STRESS ORDERAB LES * Lipid Panel Reflex Direct LDL (07/25/2024 9:07 AM EST) Cholesterol, Total 145 <200 mg/dL [facility] Cholesterol, HDL 57 > OR = 40 mg/dL [facility] Triglycerides 101 <150 mg/dL [facility] LDL Cholesterol 70 mg/dL (calc) [facility] Comment: Reference range: <100 Desirable range <100 mg/dL for primary prevention; ?? <70 mg/dL for patients with CHD or diabetic patients with > or = 2 CHD risk factors. LDL-C is now calculated using the Javier-Payan calculation, which is a validated novel method providing better accuracy than the Friedewald equation in the estimation of LDL-C. Javier ATKINSON et al. JOHN. 2013;310(19): 7856-8634 (http://education.[employer]/faq/XCR469) Cholesterol/HDL Ratio 2.5 <5.0 (calc) [facility] Non HDL Chol. (LDL+VLDL) 88 <130 mg/dL (calc) [facility] Comment: For patients with diabetes plus 1 major ASCVD risk factor, treating to a non-HDL-C goal of <100 mg/dL (LDL-C of <70 mg/dL) is considered a therapeutic option. Blood Blood specimen / Unknown 07/25/2024 9:07 AM EST 07/25/2024 9:08 AM EST Narrative [facility] - 07/30/2024 9:46 AM EST FASTING:YES FASTING: YES Nahid Preciado MD LAB BLOOD ORDERAB LES [facility] [address] [place] [address] * Lipoprotein (a) (07/25/2024 9:07 AM EST) Lipoprotein (a) <10 <75 nmol/L [facility]/ judah JOHNSON Comment: ? Risk Category ??Optimal ?< 75 nmol/L ??Moderate ?? 75 - 125 nmol/L ??High ?> 125 nmol/L Cardiovascular event risk category cut points (optimal, moderate, high) are based on Mars Olivares [facility] 2017;69:[id number]. ? Blood Blood specimen / Unknown 07/25/2024 9:07 AM EST 07/25/2024 9:08 AM EST Narrative [facility] - 07/30/2024 9:46 AM EST FASTING:YES FASTING: YES Nahid Preciado MD LAB BLOOD ORDERAB LES Performing Organization Address City/State/[facility] Co de Phone Number [place] [address] [place] [address] * Comprehensive Metabolic Panel (07/25/2024 9:07 AM EST) Pathologist [facility] Glucose 93 65 - 99 mg/dL [facility] Comment: ? Fasting reference interval Blood Urea Nitrogen (BUN) 19 7 - 25 mg/dL [facility] Creatinine 1.09 0.70 - 1.35 mg/dL [facility] Creatinine w/ eGFR 74 > OR = 60 mL/min/1. 73m2 [facility] BUN/Creatinine Ratio SEE NOTE: (calc) [facility] Comment: ?? Not Reported: BUN and Creatinine are within ?? reference range. ? Sodium 136 135 - 146 mmol/L [facility] Potassium 4.3 3.5 - 5.3 mmol/L [facility] Chloride 99 98 - 110 mmol/L [facility] CO2 30 20 - 32 mmol/L [facility] Calcium 9.3 8.6 - 10.3 mg/dL [facility] Protein, Total 7.1 6.1 - 8.1 g/dL [facility] Albumin 4.4 3.6 - 5.1 g/dL [facility] Globulin 2.7 1.9 - 3.7 g/dL (calc) [facility] Albumin/Globuli n Ratio 1.6 1.0 - 2.5 (calc) [facility] Bilirubin, Total 0.7 0.2 - 1.2 mg/dL [facility] Alkaline Phosphatase 105 35 - 144 U/L [facility] Aspartate Aminotrans (AST) 24 10 - 35 U/L [facility] Alanine Aminotrans (ALT) 41 9 - 46 U/L [facility] Blood Blood specimen / Unknown 07/25/2024 9:07 AM EST 07/25/2024 9:08 AM EST Narrative [facility] - 07/30/2024 9:46 AM EST FASTING:YES FASTING: YES Nahid Preciado MD LAB BLOOD ORDERAB LES Performing Organization Address City/State/[facility] Co de Phone Number [facility] [address] [place] [phone] * ECG 12 lead (07/21/2024 7:59 AM EST) Pathologist [facility] Ventricular rate 55 BPM EKG [facility] Atrial rate 55 BPM EKG [facility] P-R interval [address] [facility] QRS duration [address] [facility] Q-T interval [address] [facility] QTC calculation (Bazett) 401 ms EKG [facility] P axis 34 degrees EKG [facility] R axis 65 degrees EKG [facility] T axis 75 degrees EKG [facility] 07/21/2024 7:59 AM EST Narrative [facility] - 07/21/2024 8:38 AM EST Sinus bradycardia Possible Inferior infarct , age undetermined Abnormal ECG No previous ECGs available Confirmed by MD Preciado Joseph () on 07/21/2024 8:38:19 AM Procedure Note Nahid Preciado MD - 07/21/2024 Sinus bradycardia Possible Inferior infarct , age undetermined Abnormal ECG No previous ECGs available Confirmed by MD Preciado Joseph () on 07/21/2024 8:38:19 AM Nahid Preciado MD ECG ORDERABLES EKG [facility] from Last 3 Months Care Teams Wind Turbine Design Engineer Relationship Specialty Start Date End Date Aminata Linda PA-C [address] [place] [address] PCP - General Internal Medicine 11/07/23 Nahid Preciado MD [address] [place] [address] Primary Gas Appliance Adjuster Cardiovascular Disease 08/11/24 Jeanette Mcgrath MD [address] [place] [address] Pulmonary Medicine 09/08/24
--- OUTSIDE RECORDS SUMMARY | 2024-09-18 10:03 | XMS_ITS | Encounter Summary ---
Author Organization [facility] Address [address] [place] [address] Care Team Providers Care Cleaning Validation Consultant Name Role Phone Aminata Linda PA-C Primary Care Provi chrissy Nahid Preciado MD Unavailable [phone] Panchito Hurley MD Unavailable [phone] Reason for Visit * Reason Comments Cough Chronic cough- new P t consult * Pulmonary (Routine) - Closed Specialty Diagnoses / Procedures Referred By Fady tompkins Referred To Contact Pulmonary Medicine / Pulmonology Diagnoses Chronic cough Aminata Linda PA-C [address] [place] [address] Chet Escobedo, DO [address] [place] [address] Referral ID Status Reason Start Date Expiration Date V isits Requested Visits Authorized [id number] Closed Consult 05/20/2024 05/21/2025 1 1 Encounter Details Date Type Department Care Team (Late st Contact Info) Description 09/08/2024 9:45 AM EST Office Visit [facility] [place] [address] [place] [address] Panchito Hurley MD [address] [place] [address] [place] [id number] Tobacco use (Primary Dx); Shortness of breath Social History Tobacco Use Types Packs/Day Years Used Date Smoking Tobacco: Former Cigarettes 2.3 41.9 1 975 - 05/22/2024 Smokeless Tobacco: Former Comments:currently vaping Alcohol Use Standard Drinks/Week Comments Not Currently 0 (1 standard drink = 0.6 oz pur e alcohol) [facility] Utilities Answer Date Recorded In the past 12 months has th e [employer], gas, oil, or water [employer] threatened to shut off services in your home? No 05/19/2024 Social Connection and Isolation Panel [NHANES] A nswer Date Recorded In a typical week, how many times do you talk on the phone with family, friends, or neighbors? Never 05/19/2024 Frequency of Social Gatherings with Friends and Family Not on file 05/19/2024 Attends Voodoo Services Not on file 05/19 Active Member [...] any time in the past 12 m [facility], were you homeless or living in a [place] health care facility (including now)? No 05/19/2024 Sex and Gender Information Value Date Recorded Sex Assigned at Male 11/08/2023 3:45 AM EDT Gender Identity Male 11/08/2023 3:45 AM EDT Sexual Orientation Heterosexual (straight) 11/07 3:45 AM EDT documented as of this encounter Last Filed Vital Signs Vital Sign Reading Time Taken Comments Blood Pressure 120/80 09/08/2024 9:38 AM EST Pulse 57 09/08/2024 9:38 AM EST Temperature 35.8 ??C (96.5 ??F) 09/08/2024 9:38 AM ES T Respiratory Rate - - Oxygen Saturation 96% 09/08/2024 9:38 AM EST Inhaled Oxygen Concentration - - Weight 97.5 kg (215 lb) 09/08/2024 9:38 AM EST Height 177.8 cm (5' 10 ) 09/08/2024 9:38 AM EST Body Mass Index 30.85 09/08/2024 9:38 AM EST documented in this encounter Progress Notes * Panchito Hurley MD - 09/08/2024 9:45 AM EST Images from the original note were not included. Division of Pulmonary, Critical Care, and Sleep Medicine [address] [facility], [address], [place] [address] Pulmonary Consult Note Date: September 08, 2024 Name: Herbie Zamora Brodie [place].: Aminata Linda PA-C Date of : 1955 Chief Complaint: No chief complaint on file. HPI: Herbie Zamora is a 68 y.o. year old male with a PMH significant for tobacco abuse, psoriasis, who presents for evaluation of chronic cough. Herbie indicates that he has had an extensive smoking history. On review of his prior smoking he has roughly a 9D5 pack-year smoking history given that the years he smoked he was either a 2 pack/day smoker or 3 pack/day smoker. He has a vape pen but he notes he does not use it frequently He recently quit smoking 3 months ago He does have some element of chronic cough and has been utilizing his albuterol inhaler frequently. He notes that when he was smoking he was using his albuterol multiple times per day and since quitting smoking his albuterol use is gone down quite significantly Given his persistent symptoms of cough and shortness of breath he had a stress test and also had his annual screening CT He does follow with cardiology and is scheduled to see them for follow-up of the stress test excetra The screening CT scan that was performed August 2024 failed to demonstrate evidence of pulmonary malignancy but demonstrated some mild emphysema and bronchial wall thickening Herbie indicates he has never been diagnosed with lung disease He denies any asthma though his sister does have a history of asthma There is no other severe pulmonary history in his family or in his own personal life He lives in his own home Denies any mold exposure He has many split heat Used to work in [employer] Denies any asbestos exposure CT chest (low dose) 08/2024 IMPRESSION: 1. No evidence of pulmonary malignancy. 2. Mild emphysema and bronchial thickening. 3. Moderate coronary calcifications. ASSESSMENT: 1. Lung-RADS Category 2: Benign appearance or behavior of nodules. N/A 2. Lung-RADS Category S: Negative. There are no clinically significant or potentially clinically significant findings not related to the lungs requiring urgent additional evaluation. CT cehst (09/2023) IMPRESSION: No suspicious pulmonary nodules Lung RADS 2: Benign Appearance or Behavior - Continue annual screening with LDCT in [address] chest 09/2022 Impression: No suspicious developing pulmonary nodule. Lung RADS 1: No lung nodules or nodules with specific calcifications and fat containing nodules - Continue annual screening with LDCT in 12 months. Labs: Eosinophils: 207, 284, 163 Present Medications: Current Outpatient Medications Medication Sig Dispense Refill albuterol (PROVENTIL HFA; VENTOLIN HFA) 108 (90 Base) MCG/ACT inhaler 200 puffs. atenolol (TENORMIN) 25 MG tablet TAKE 1 TABLET (25 MG TOTAL) BY MOUTH DAILY. 90 tablet 1 atorvastatin (LIPITOR) 10 MG tablet TAKE 1 TABLET BY MOUTH EVERY DAY 90 tablet 1 betamethasone dipropionate augmented (DIPROLENE-AF) 0.05 % cream Apply topically 2 (two) times a day. cholecalciferol (CHOLECALCIFEROL) 25 MCG (1000 UT) tablet Take 1 tablet (1,000 Units total) by mouth daily. hydrOXYzine HCl (ATARAX) 25 MG tablet Take 1 tablet (25 mg total) by mouth 3 (three) times a day. 60 tablet 0 Multiple Vitamin tablet Take 1 tablet by mouth daily. omega-3 fatty acids (FISH OIL) 1000 MG Cap capsule Take by mouth. risankizumab-rzaa (Skyrizi Pen) 150 mg/mL Solution Auto-injector Inject 1 mL (150 mg total) under the skin. triamcinolone (KENALOG) 0.1 % cream PLEASE SEE ATTACHED FOR DETAILED DIRECTIONS No current facility-administered medications for this visit. Allergies: Patient has no known allergies. Past Medical History: Past Medical History: Diagnosis Date Abnormal LFTs (liver function tests) 02/02/2016 Associated with alcohol abuse, SGPT 97, SGPT 118, alk phos 144 on 10/28/15 Alcohol abuse 11/15/2006 Alcoholism ([facility]) (Abstinent since age 60) Anxiety 05/20/2024 Diverticulitis of colon without hemorrhage 04/21/2007 scattered, colonoscopy Dr Mcpherson 03/15, repeat 2016. Did not respond. 12/28 FIT neg 05/31 cologuard positive Electronic cigarette use History of cigarette smoking Hyperlipidemia Hypertension Hyponatremia 02/25/2016 Macrocytic anemia 02/02/2016 Associated with alcohol abuse, 10.8/31.6 with MCV of 105.7, vitamin B 12 617 on 10/28/15 Overweight Overweight (BMI 25.0-29.9) 10/07/2021 Paranoid personality (disorder) ([facility]) 03/06/2016 Hospitalized 02/2016 Polysubstance use disorder (Abstinent since age 60) Psoriatic arthritis ([facility]) 05/20/2024 Right inguinal hernia Subclinical hypothyroidism 02/08/2016 Thrombocytopenia 11/14/2023 Past Surgical History: Past Surgical History: Procedure Laterality Date COLONOSCOPY Family History: Family History Problem Relation Age of Onset Other Mother Ischemic colitis Pancreatic cancer Father Asthma Sister Social History: reports that he quit smoking about 3 months ago. His smoking use included cigarettes. He has quit using smokeless tobacco. He reports that he does not currently use alcohol. He reports that he does not currently use drugs after having used the following drugs: Heroin, Marijuana, and Cocaine. Smoking: reports that he quit smoking about 3 months ago. His smoking use included cigarettes. He has quit using smokeless tobacco. Review of Systems: 10 point review of systems obtained are negative aside listed above There were no vitals filed for this visit. Exam: General: alert, appears stated age and cooperative Head: Normocephalic, atraumatic Throat: mmm Neck: trachea midline Lungs: clear to auscultation bilaterally Chest wall: no tenderness Heart: regular rate and rhythm, S1, S2 normal, no murmur, click, rub or gallop Review of diagnostic tests Lab Results Component Value Date WBC 6.1 09/03/2024 HGB 14.5 09/03/2024 HCT 42.6 09/03/2024 MCV 98.6 09/03/2024 PLT 201 09/03/2024 Lab Results Component Value Date GLUC 93 07/25/2024 CALCIUM 9.3 07/25/2024 NA 136 07/25/2024 K 4.3 07/25/2024 CO2 30 07/25/2024 CL 99 07/25/2024 BUN 19 07/25/2024 CREAT 1.09 07/25/2024 No results found for: FVC , FEV1 , [id number] I have personally reviewed the imaging studies and verified the reports Impression and Recommendations: 68 y.o. year old male with a PMH significant for extensive tobacco use, who presents for evaluationof persistent coughing and occasional shortness of breath. He is getting his lung cancer screening CT scan through his primary care office. The last test was ordered by Aminata anderson, and demonstrated some airway inflammatory change and mild emphysema but no significant signs for lung cancer. His next lung cancer screening CT scan for August 2025. Given the degree of symptoms he has in addition to the length of time he smoked he clearly needs screening for smoking-related lung disease. I have ordered him a pulmonary function test which she will complete in the next 3 months. I suspect he would benefit from some long-acting inhalers as controlled therapy but would like to see his initial testing first. Suspect we will start LAMA/LABA therapy after initial pulmonary function testing but we will regroup on this in the next 3 to 6 months Panchito Hurley MD [facility] Pulmonary and Critical Care Medicine [phone] documented in this encounter Plan of Treatment Upcoming Encounters Date Type Department Care Team (Late st Contact Info) Description 09/22/2024 8:00 AM EDT Appointment [facility] Pulmonary Laboratory & Rehabilitation [address] [place] [address] Panchito Hurley MD [address] [address] 11/06/2024 2:45 PM EDT Appointment [facility] [place] [address] [phone] Nahid Preciado MD [address] [place] [address] [place] [address] 12/11/2024 11:00 AM EDT Office Visit [facility] [address] [facility] [address] [place] [phone] Aminata Linda PA-C [address] [place] [address] 01/20/2025 1:45 PM EDT Office Visit [facility] [place] [address] [place] [phone] Panchito Hurley MD [address] [address] Scheduled Orders Name Type Priority Associated Diagnoses Orde r Schedule Pulmonary Function Test Pulmonary Lab; Click this AFTER selecting the test(s) below; Spirometry (pre & post)/Lung Volumes/Diffusion PFT Routine Tobacco use Shortness of breath Expected: 09/08/2024, Expires: 09/08/2025 documented as of this encounter Visit Diagnoses Diagnosis Tobacco use- Primary Shortness of breath documented in this encounter Care Teams Cleaning Validation Consultant Relationship Specialty Start Date End Date Aminata Linda PA-C [address] [place] [address] PCP - General Internal Medicine 11/07/23 Nahid Preciado MD [address] [place] [phone] Primary Cable Stretcher And Tester Cardiovascular Disease 08/11/24 Panchito Hurley MD [address] [place] [address] Pulmonary Medicine 09/08/24 documented as of this encounter
--- OUTSIDE RECORDS SUMMARY | 2024-09-18 10:03 | XMS_ITS | Encounter Summary ---
Author Organization [facility] Address [address] [place] [address] Care Team Providers Care Quality Assurance Coordinator Name Role Phone Aminata Linda PA-C Primary Care Provi chrissy Nahid Preciado MD Unavailable [phone] Reason for Referral * General Surgery (Routine) - Pending Review Specialty Diagnoses / Procedures Referred By Fady tompkins Referred To Contact Surgery, General Diagnoses Non-recurrent unilateral inguinal hernia without obstruction or gangrene Aminata Linda PA-C [address] [place] [address] Referral ID Status Reason Start Date Expiration Date Visits Requested Visits Authorized [id number] Pending Review Consult 08/26/2024 08/27/2025 1 1 Comments Pt wants to see Dr Abdi Ramey [facility]- [phone] * Gastroenterology (Routine) - Pending Review Specialty Diagnoses / Procedures Referred By Contkiersten t Referred To Contact Gastroenterology Diagnoses Screen for colon cancer Aminata Linda PA-C [address] [place] [address] Referral ID Status Reason Start Date Expiration Date Visits Requested Visits Authorized [id number] Pending Review Consult 08/26/2024 08/27/2025 1 1 Question Answer Select Referral Type: Consult Comments Due to insurance- pt wants to see Dr Belle at [facility]- please book Reason for Visit * Reason Comments Follow-up Encounter Details Date Type Department Care Team ([facility] st Contact Info) Description 08/26/2024 9:00 AM EST Office Visit [facility] 100 [facility] [address] [place] [address] Aminata Linad PA-C [address] [place] [address] Screen for colon cancer (Primary Dx); Non-recurrent unilateral inguinal hernia without obstruction or gangrene; Primary hypertension; Tobacco use; Thrombocytopenia; Psoriasis; Abnormal EKG; Chronic cough Social History Tobacco Use Types Packs/Day Years Used Date Smoking Tobacco: Former Cigarettes Q uit: 05/21/2024 Smokeless Tobacco: Former Comments:currently vaping Alcohol Use Standard Drinks/Week Comments Not Currently 0 (1 standard drink = 0.6 oz pur e alcohol) [facility] Utilities Answer Date Recorded In the past [...] and Family Not on file 05/19/2024 Attends Scientology Services Not on file 05/19 Active Member [...] any time in the past 12 m [facility], were you homeless or living in a long term (including now)? No 05/19/2024 Sex and Gender Information Value Date Recorded Sex Assigned at Male 11/08/2023 3:45 AM EDT Gender Identity Male 11/08/2023 3:45 AM EDT Sexual Orientation Heterosexual (straight) 11/07 3:45 AM EDT documented as of this encounter Last Filed Vital Signs Vital Sign Reading Time Taken Comments Blood Pressure 122/78 08/26/2024 9:44 AM EST Pulse 60 08/26/2024 8:42 AM EST Temperature 36 ??C (96.8 ??F) 08/26/2024 8:42 AM EST Respiratory Rate 18 08/26/2024 8:42 AM EST Oxygen Saturation 97% 08/26/2024 8:42 AM EST Inhaled Oxygen Concentration - - Weight 96.1 kg (211 lb 12.8 oz) 08/26/2024 8:42 AM EST Height 177.8 cm (5' 10 ) 08/26/2024 8:42 AM EST Body Mass Index 30.39 08/26/2024 8:42 AM EST documented in this encounter Progress Notes * Aminata Linda PA-C - 08/26/2024 9:08 AM EST Images from the original note were not included. Assessment & Plan 1. Screen for colon cancer Referral placed to GI at [facility]. - Amb Referral to Gastroenterology 2. Non-recurrent unilateral inguinal hernia without obstruction or gangrene Referral placed to general surgeon at [facility] - Amb referral to General Surgery 3. Primary hypertension Compliant with blood pressure medications. Blood pressures have been good. 4. Tobacco use Patient denies any daily smoking however if he finds a stash of cigarettes or tobacco use he will use it. He is overdue for his low-dose CAT scan screen. The order was placed in May to [facility]. He will go over there this morning and book his appointment. He will let them know that he is seeing pulmonary on September 08 and this needs to get done before then. 5. Thrombocytopenia Last platelet count done in our office was normal. Patient states he had 1 done at [facility] a couple weeks ago that was low. We will get those results. Once I have them I will forward them to hematology for their input. They did not investigate this thrombocytopenia any further because his last platelet count was normal. Does not appear that the Skyrizi affects platelet count from what I could findin up-to-date. 6. Psoriasis Following with dermatology. Stable with Skyrizi. 7. Abnormal EKG Q waves in 2 3 and aVF. Patient saw cardiology. Echo scheduled for November. Patient had a nuclear stress test that did not show anything worrisome. Patient has follow-up with cardiology pending results of the echo. 8. Chronic cough Seeing pulmonary September 08. I will see patient back in 3 months to make sure all the loose ends have been tied up. Patient understands and agrees with the plan of care Return in about 3 months (around 11/23/2024) for 30 MINUTES. Communication barriers and lifestyle preferences were addressed with the patient. The care plan including medications and self-management goals were reviewed to the best of the patient???s abilities.All questions and concerns were answered. Patient and/or family verbalized understanding of the plan of care. Subjective Herbie Zamora is a 68 y.o. male who presents for office visit. Chief Complaint Patient presents with Follow-up HPI Herbie presents the office today for follow-up. History of thrombocytopenia. Patient did a repeat CBC on June 17, 2024 his platelet count was normal at 228,000. Patient also saw hematology and due to the normal platelet count no further actionwas done. Patient states he saw his fixer supervisor who ordered a CBC and was told his platelet countwas low and concerning. Unfortunately we do not have access to those labs done at [facility]. Patient denies any excessive bleeding or bruising. History of tobacco use. He was doing his low-dose CAT scan screen at [facility]. He now wants to use [facility]. An order was placed back in March 2024. Patient has not heard from [facility]. Chronic cough-was referred to pulmonary. Patient seeing pulmonary September 08. Hypertension-compliant with blood pressure medications. Abnormal EKG-small Q waves noted to 3 and aVF. Found during his physical exam. Patient was asymptomatic. Echo and cardiac consult was ordered. Patient saw cardiology who ordered an echo which was being done in November. They also ordered a exercise SPECT myocardial perfusion scan. It was done August 04, 2024 which showed: Normal exercise sestamibi perfusion imaging. Left ventricular cavity size was normal at rest with no change on stress images. Distribution of Tc 99m-sestamibi in the left ventricle reveals medium size area of fixed perfusion abnormality involving the entire extent of the inferior wall with normal wall motion consistent with artifact. No reversible perfusion defects were noted. LV systolic function was normal with post stress LVEF of 73%. Right inguinal hernia-was referred to general surgeon. Patient was referred to his surgeon at [facility] although his insurance will not cover it. He wants to see a surgeon out of [facility]. History of low vitamin B12 level-noted from previous PCP. Last vitamin B12 level was 1717. Patient is taking vitamin B12 anywhere from the 1000 mcg to 3000 mcg a few times a week. Patient was overdue for his colonoscopy. Referral was placed to [facility] due to transportation issues. Patient cannot go to [facility] due to his insurance. He wants to see a GI person out of [place]. With regards to his psoriasis. He is following with [place] [facility]. He is now on Skyrizi and notices great improvement. Current Outpatient Medications Medication Sig Dispense Refill atenolol (TENORMIN) 25 MG tablet TAKE 1 [...] cream PLEASE SEE ATTACHED FOR DETAILED DIRECTIONS albuterol (PROVENTIL HFA; VENTOLIN HFA) 108 (90 Base) MCG/ACT inhaler 200 puffs. No current facility-administered medications for this visit. Pertinent History: The patient's past medical, surgical, social, and family history were all reviewed and updated as appropriate. Review of Systems Respiratory: Positive for cough. Negative for shortness of breath. Cardiovascular: Negative for chest pain, palpitations and leg swelling. Objective Vitals: 08/26/24 0842 08/26/24 0944 BP: 138/78 122/78 Pulse: 60 Resp: 18 Temp: 96.8 ??F (36 ??C) SpO2: 97% Body mass index is 30.39 kg/m??. Physical Exam Vitals reviewed. Constitutional: Appearance: Normal appearance. Cardiovascular: Rate and Rhythm: Normal rate and regular rhythm. Heart sounds: Normal heart sounds. Pulmonary: Effort: Pulmonary effort is normal. Breath sounds: Normal breath sounds. Musculoskeletal: Right lower leg: No edema. Left lower leg: No edema. Neurological: Mental Status: He is alert. Psychiatric: Mood and Affect: Mood normal. Behavior: Behavior normal. Disclaimer: Dine perfect voice-recognition is used to prepare this typewritten note. Although each note is personally edited for syntactic and grammatical errors, unintended translational errors can occur.Please contact me if there are any questions about the content of this note. Aminata Linda PA-C documented in this encounter Plan of Treatment Upcoming Encounters Date Type Department Care Team (Late st Contact Info) Description 09/22/2024 8:00 AM EDT Appointment [facility] Pulmonary Laboratory & Rehabilitation [address] [place] [phone] Panchito Hurley MD [address] [address] 11/06/2024 2:45 PM EDT Appointment [facility] Heart [facility] V[facility] [address] [phone] Nahid Preciado MD [address] [place] [address] [place] [address] 12/11/2024 11:00 AM EDT Office Visit [facility] 100 [facility] 101 [place] [phone] Aminata Linda PA-C [address] [place] [address] 01/20/2025 1:45 PM EDT Office Visit [facility] Pulmonary [place] [address] [place] [phone] Panchito Hurley MD [address] [address] Scheduled Referrals Name Type Priority Associated Diagnoses Order Schedule Amb Referral to Gastroenterology Outpatient Referral Routine Screen for colon cancer Ordered: 08/26/2024 Amb referral to General Surgery Outpatient Referral Routine Non-recurrent unilateral inguinal hernia without obstruction or gangrene Ordered: 08/26/2024 documented as of this encounter Visit Diagnoses Diagnosis Screen for colon cancer- Primary Special screening for malignant neoplasms, colon Non-recurrent unilateral inguinal hernia without obstruction or gangrene Primary hypertension Unspecified essential hypertension Tobacco use Thrombocytopenia Unspecified thrombocytopenia Psoriasis Other psoriasis Abnormal EKG Nonspecific abnormal electrocardiogram (ECG) (EKG) Chronic cough Cough documented in this encounter Care Teams Quality Assurance Coordinator Relationship Specialty Start Date End Date Aminata Linda PA-C [address] [place] [address] PCP - General Internal Medicine 11/07/23 Nahid Preciado MD [address] [place] [id number] Primary Core Driller Cardiovascular Disease 08/11/24 documented as of this encounter
--- OUTSIDE RECORDS SUMMARY | 2024-09-18 10:03 | XMS_ITS | Encounter Summary ---
Author Organization [facility] Address [address] [place] [address] Care Team Providers Care Commercial Pest Control Technician Name Role Phone Aminata Linda PA-C Primary Care Provi chrissy Nahid Preciado MD Unavailable [phone] Panchito Hurley MD Unavailable [phone] Encounter Details Date Type Department Care Team (Latest Contact Info) Description 09/08/2024 Travel Social History Tobacco Use Types Packs/Day Years Used Date Smoking Tobacco: Former Cigarettes 2.3 41.9 1 975 - 05/22/2024 Smokeless Tobacco: Former Comments:currently vaping Alcohol Use Standard Drinks/Week Comments Not Currently 0 (1 standard drink = 0.6 oz pur e alcohol) [facility] Utilities Answer Date Recorded In the past 12 months has [employer], gas, oil, or water [employer] threatened to shut off services in your home? No 05/19/2024 Social Connection and Isolation Panel [NHANES] A nswer Date Recorded In a typical week, how many times do you talk on the phone with family, friends, or neighbors? Never 05/19/2024 Frequency of Social Gatherings with Friends and Family Not on file 05/19/2024 Attends Church Services Not on file 05/19 Active Member [...] any time in the past 12 m [facility], were you homeless or living in a jail (including now)? No 05/19/2024 Sex and Gender Information Value Date Recorded Sex Assigned at Male 11/08/2023 3:45 AM EDT Gender Identity Male 11/08/2023 3:45 AM EDT Sexual Orientation Heterosexual (straight) 11/07 3:45 AM EDT documented as of this encounter Plan of Treatment Upcoming Encounters Date Type Department Care Team (Late st Contact Info) Description 09/22/2024 8:00 AM EDT Appointment [facility] Pulmonary Laboratory & Rehabilitation [address] [place] [phone] Panchito Hurley MD 85 [facility] [address] [place] [address] 11/06/2024 2:45 PM EDT Appointment [facility] [place] [address] [place] [phone] Nahid Preciado MD [address] [place] [address] 12/11/2024 11:00 AM EDT Office Visit [facility] 100 [facility] [address] [place] [phone] Aminata Linda PA-C [address] [place] [address] 01/20/2025 1:45 PM EDT Office Visit [facility] [place] [address] [place] [address] Panchito Hurley MD [address] [place] [address] documented as of this encounter Visit Diagnoses Not on filedocumented in this encounter Care Teams Commercial Pest Control Technician Relationship Specialty Start Date End Date Aminata Linda PA-C [address] [place] [address] PCP - General Internal Medicine 11/07/23 Nahid Preciado MD [address] [place] [address] Primary Purchasing Engineer Cardiovascular Disease 08/11/24 Panchito Hurley MD [address] [place] [address] Pulmonary Medicine 09/08/24 documented as of this encounter
--- OUTSIDE RECORDS SUMMARY | 2024-09-18 10:03 | XMS_ITS | Encounter Summary ---
Author Organization [facility] Address [address] [place] [address] Care Team Providers Care Movie Shot Camera Operator Name Role Phone Aminata Linda PA-C Primary Care Provi chrissy Nahid Preciado MD Unavailable [phone] Encounter Details Date Type Department Care Team (Late st Contact Info) Description 08/27/2024 Orders Only [facility] 100 [facility] [address] [place] [phone] Aminata Linda PA-C [address] [place] [address] Abnormal CBC (Primary Dx) Social History Tobacco Use Types Packs/Day Years Used Date Smoking Tobacco: Former Cigarettes Q uit: 05/21/2024 Smokeless Tobacco: Former Comments:currently vaping Alcohol Use Standard Drinks/Week Comments Not Currently 0 (1 standard drink = 0.6 oz pur e alcohol) [facility] Utilities Answer Date Recorded In the past 12 months has [employer] electric, gas, oil, or water company threatened to shut off services in your home? No 05/19/2024 Social Connection and Isolation Panel [NHANES] A nswer Date Recorded In a typical week, how many times do you talk on the phone with family, friends, or neighbors? Never 05/19/2024 Frequency of Social Gatherings with Friends and Family Not on file 05/19/2024 Attends Temple Services Not on file 05/19 Active Member [...] any time in the past 12 m [facility], were you homeless or living in a detention (including now)? No 05/19/2024 Sex and Gender Information Value Date Recorded Sex Assigned at Male 11/08/2023 3:45 AM EDT Gender Identity Male 11/08/2023 3:45 AM EDT Sexual Orientation Heterosexual (straight) 11/07 3:45 AM EDT documented as of this encounter Plan of Treatment Upcoming Encounters Date Type Department Care Team (Late st Contact Info) Description 09/22/2024 8:00 AM EDT Appointment [facility] Pulmonary Laboratory & Rehabilitation [address] [place] [address] Panchito Hurley MD [address] [address] 11/06/2024 2:45 PM EDT Appointment [facility] [place] [facility] [address] [place] [phone] Nahid Preciado MD [address] [place] [address] [place] [address] 12/11/2024 11:00 AM EDT Office Visit [facility] 100 [facility] 101 [place] [address] Aminata Linda PA-C [address] [place] [address] 01/20/2025 1:45 PM EDT Office Visit [facility] [place] [address] [place] [address] Panchito Hurley MD [address] [place] [phone] documented as of this encounter Procedures Procedure Name Priority Date/Time Associated Diagnosis Comments VITAMIN B12 AND FOLATE Routine 08/29/2024 9:21 AM EST Abnormal CBC documented in this encounter Results * (ABNORMAL) Vitamin B12 and Folate (08/29/2024 9:21 AM EST) Vitamin B12 1,157(H) 200 - 1,100 pg/mL C3DNA Folate, Serum >24.0 ng/mL C3DNA Comment: ? Reference Range ? Low: ? <3.4 ? Borderline: ?3.4-5.4 ? Normal: ?>5.4 ? Your request to have a duplicate copy faxed has been acknowledged. ?Queued to: ??[id number] Blood Blood specimen / Unknown 08/29/2024 9:21 AM EST 08/29/2024 9:22 AM EST Narrative [facility] - 08/30/2024 1:35 AM EST FASTING:UNKNOWN FASTING: UNKNOWN Aminata Linda PA-C LAB BLOOD O RDERABLES Performing Organization Address City/State/[facility] Co de Phone Number [employer] [address] [place] [phone] documented in this encounter Visit Diagnoses Diagnosis Abnormal CBC- Primary Other abnormal blood chemistry documented in this encounter Care Teams Movie Shot Camera Operator Relationship Specialty Start Date End Date Aminata Linda PA-C [address] [place] [address] PCP - General Internal Medicine 11/07/23 Nahid Preciado MD [address] [facility] [place] [address] Primary Crude Unit Operator Cardiovascular Disease 08/11/24 documented as of this encounter
--- OUTSIDE RECORDS SUMMARY | 2024-09-18 10:03 | XMS_ITS | Encounter Summary ---
Author Organization [facility] Address [address] [place] [address] Care Team Providers Care Bartacker Name Role Phone Aminata Linda PA-C Primary Care Provi chrissy Nahid Preciado MD Unavailable [phone] Encounter Details Date Type Department Care Team (Late st Contact Info) Description 08/26/[address] [phone] Aminata Linda PA-C [address] [place] [address] Social History Tobacco Use Types Packs/Day Years Used Date Smoking Tobacco: Former Cigarettes Q uit: 05/21/2024 Smokeless Tobacco: Former Comments:currently vaping Alcohol Use Standard Drinks/Week Comments Not Currently 0 (1 standard drink = 0.6 oz pur e alcohol) [facility] Utilities Answer Date Recorded In the past 12 months has [employer] electric, gas, oil, or water company threatened to shut off services in your home? No 05/19/2024 Social Connection and Isolation Panel [NHANES] A nswer Date Recorded In a typical week, how many times do you talk on the phone with family, friends, or neighbors? Never 05/19/2024 Frequency of Social Gatherings with Friends and Family Not on file 05/19/2024 Attends [employer] Services Not on file 05/19 Active Member [...] any time in the past [address] [facility], were you homeless or living in a chcf (including now)? No 05/19/2024 Sex and Gender Information Value Date Recorded Sex Assigned at Male 11/08/2023 3:45 AM EDT Gender Identity Male 11/08/2023 3:45 AM EDT Sexual Orientation Heterosexual (straight) 11/07 3:45 AM EDT documented as of this encounter Miscellaneous Notes * Telephone Encounter - Lizy Gilliland MA - 08/26/2024 10:45 AM EST Printed labs from [employer] and placed in provider's in box. * Telephone Encounter - Aminata Linda PA-C - 08/26/2024 9:17 AM EST Need labs from [facility] done last week documented in this encounter Plan of Treatment Upcoming Encounters Date Type Department Care Team (Late st Contact Info) Description 09/22/2024 8:00 AM EDT Appointment [facility] Pulmonary Laboratory & Rehabilitation [address] [place] [phone] Panchito Hurley MD [address] [place] [phone] 11/06/2024 2:45 PM EDT Appointment [facility] Heart & Vascular [place] [address] [phone] Nahid Preciado MD [address] [place] [address] [place] [address] 12/11/2024 11:00 AM EDT Office Visit [facility] 100 [facility] 101 [place] [phone] Aminata Linda PA-C [address] [place] [address] 01/20/2025 1:45 PM EDT Office Visit [facility] Pulmonary [address] [phone] Panchito Hurley MD [address] [place] [phone] documented as of this encounter Visit Diagnoses Not on filedocumented in this encounter Care Teams Bartacker Relationship Specialty Start Date End Date Aminata Linda PA-C [address] [place] [address] PCP - General Internal Medicine 11/07/23 Nahid Preciado MD [address] [place] [phone] Figure Clerk Cardiovascular Disease 08/11/24 documented as of this encounter
--- OUTSIDE RECORDS SUMMARY | 2024-09-18 10:03 | XMS_ITS ---
Author Name [facility] Organization Unknown Results Test Name/Text Value Interpretation Date Range Source PSA SerPl-mCnc 0.81ng/mL Normal [id number] - QU EST Monocytes # Bld Auto 439cells/uL Normal [id number] 200 - 950 [facility] PMV Bld Medardo-Riki 9.4fL Normal [id number] 7.5 - 12 .5 [facility] Neutrophils # Bld Auto 4301cells/uL Normal [id number] 1500 - 7800 [facility] Eosinophil # Bld Auto 207cells/uL Normal [id number] 15 - 500 [facility] MCHC RBC Auto-mCnc 34g/dL Normal [id number] 32 - 36 [facility] Basophils # Bld Auto 49cells/uL Normal [id number] 0 - 2 00 [facility] Monocytes/leuk NFr Bld Auto 7.2% Normal [id number] [facility] WBC # Bld Auto 6.1Thousand/uL Normal [id number] 3.8 - 1 0.8 [facility] Hct VFr Bld Auto 42.6% Normal [id number] 38.5 - 50 [facility] RDW RBC Auto-Rto 11.8% Normal [id number] 11 - 15 [facility] Eosinophil/leuk NFr Bld Auto 3.4% Normal [id number] [facility] MCH RBC Qn Auto 33.6pg Above high normal [id number] 27 - 33 [facility] Basophils/leuk NFr Bld Auto 0.8% Normal [id number] [facility] Lymphocytes # Bld Auto 1104cells/uL Normal [id number] 850 - 3900 [facility] RBC # Bld Auto 4.32Million/uL Normal [id number] 4.2 - 5 .8 [facility] Neutrophils/leuk NFr Bld Auto 70.5% Normal [id number] [facility] Platelet # Bld Auto 201Thousand/uL Normal [id number] 14 0 - 400 [facility] MCV RBC Auto 98.6fL Normal [id number] 80 - 100 [facility] Lymphocytes/leuk NFr Bld Auto 18.1% Normal [id number] [facility] Hgb Bld-mCnc 14.5g/dL Normal [id number] 13.2 - 17.1 [facility] EST Folate SerPl-mCnc >24.0 Normal [id number] [facility] Vit B12 SerPl-mCnc 1157pg/mL Above high normal [id number] 200 - 1100 [facility] History of Medication Use Medication Directions Dispensed Refills Start Date End Date Stat risankizumab-rzaa (Skyrizi Pen) 150 mg/mL Solution Auto-injector Inject 1 mL (150 mg total) under the skin. 07/28/2024 active omega-3 fatty acids (FISH OIL) 1000 MG Cap capsule Take by mouth. active albuterol (PROVENTIL HFA; VENTOLIN HFA) 108 (90 Base) MCG/ACT inhaler 200 puffs. 11/06/2023 active atorvastatin (LIPITOR) 10 MG tablet TAKE 1 TABLET BY MOUTH EVERY DAY 09/09/2023 active triamcinolone (KENALOG) 0.1 % cream PLEASE SEE ATTACHED FOR DETAILED DIRECTIONS 09/20/2023 active Problems Problem Status Onset Date Problem Type Date of Resoluti on Source Psoriatic arthritis active 2024-05-20 [facility] History of ETOH abuse active 2024-05-20 [facility] Anxiety active 2024-05-20 [facility] Psoriasis active 2023-11-07 [facility]Act [facility] Other hyperlipidemia active 2023-11-07 [facility] Thrombocytopenia active 2023-11-14 ProblemAct [facility] Shortness of breath active 2024-09-08 [facility]Act [facility] Tobacco use active 2023-11-07 [facility] Primary hypertension active 2023-11-07 ProblemAct [facility] Immunizations Vaccine Date Source Lot Number Status Zoster Vaccine Recombinant (Shingrix) 06/28/2021 [facility] [id number] completed Zoster Vaccine Recombinant (Shingrix) 04/28/2021 [facility] [id number] completed Influenza, Unspecified 03/13/2024 [facility] co mpleted Pneumococcal Conjugate 20-Valent 05/20/2024 CCT [id number] completed Encounters Encounter Type Encounter Reason Primary Diagnosis Location Date Ambulatory Tobacco use Tobacco use [facility] 09/08/2024 Ambulatory Encounter for screening for malignant neoplasm of colon Encounter for screening for malignant neoplasm of colon [facility] 08/26/2024 Ambulatory Other forms of dyspnea Other forms of dyspnea [facility] 08/04/2024 Ambulatory Counseling, unspecified Counseling, unspecified [facility] 07/21/2024 Ambulatory [facility] 06/17/2024 Ambulatory [facility] 06/17/2024 Ambulatory Encounter for immunization Encounter for immunization [facility] 05/20/2024 Ambulatory Essential (primary) hypertension Essential (primary) hypertension [facility] 11/07/2023 Care Team Organization Name Specialty Phone Email Start Date End Da te [facility] RHIANNA Primary Care 11/08/2023 [facility] BRONSON MOCTEZUMA Primary Care 11/07/2023 [facility] NO PCP Primary Care 10/12/2023
--- OUTSIDE RECORDS SUMMARY | 2024-09-18 10:03 | XMS_ITS | Encounter Summary ---
Author Organization [facility] Address [address] [place] [address] Care Team Providers Care District Administrator Name Role Phone Aminata Linda PA-C Primary Care Provi chrissy Nahid Preciado MD Unavailable [phone] Encounter Details Date Type Department Care Team (Latest Contact Info) Description 08/26/2024 Travel Social History Tobacco Use Types Packs/Day Years Used Date Smoking Tobacco: Former Cigarettes Q uit: 05/21/2024 Smokeless Tobacco: Former Comments:currently vaping Alcohol Use Standard Drinks/Week Comments Not Currently 0 (1 standard drink = 0.6 oz pur e alcohol) [facility] Utilities Answer Date Recorded In the past 12 months has [employer] electric, gas, oil, or water company threatened to shut off services in your home? No 05/19/2024 Social Connection and Isolation Panel [NHANES] A nswer Date Recorded In a typical week, how many times do you talk on the phone with family, friends, or neighbors? Never 05/19/2024 Frequency of Social Gatherings with Friends and Family Not on file 05/19/2024 Attends Jewish Services Not on file 05/19 Active Member [...] any time in the past 12 m [facility], were you homeless or living in a intermediate (including now)? No 05/19/2024 Sex and Gender Information Value Date Recorded Sex Assigned at Male 11/08/2023 3:45 AM EDT Gender Identity Male 11/08/2023 3:45 AM EDT Sexual Orientation Heterosexual (straight) 11/07 3:45 AM EDT documented as of this encounter Plan of Treatment Upcoming Encounters Date Type Department Care Team (Late st Contact Info) Description 09/22/2024 8:00 AM EDT Appointment [facility] [address] [place] [phone] Panchito Hurley MD 85 [facility] [address] [place] [address] 11/06/2024 2:45 PM EDT Appointment [facility] Heart & Vascular [place] 7 [facility] [address] [place] [address] Nahid Preciado MD [address] [place] [address] 12/11/2024 11:00 AM EDT Office Visit [facility] 100 [facility] [address] [place] [address] Aminata Linda PA-C [address] [place] [phone] (Work) 01/20/2025 1:45 PM EDT Office Visit [facility] [address] [place] [address] Panchito Hurley MD [address] [place] [address] documented as of this encounter Visit Diagnoses Not on filedocumented in this encounter Care Teams District Administrator Relationship Specialty Start Date End Date Aminata Linda PA-C [address] [place] [address] PCP - General Internal Medicine 11/07/23 Nahid Preciado MD [address] [place] [address] Primary Casting Inspector Cardiovascular Disease 08/11/24 documented as of this encounter
--- OUTSIDE RECORDS SUMMARY | 2024-09-18 10:03 | XMS_ITS | Encounter Summary ---
Author Organization [facility] Address [address] [place] [address] Care Team Providers Care Junior Art Director Name Role Phone Aminata Linda PA-C Primary Care Provi chrissy Nahid Preciado MD Unavailable [phone] Encounter Details Date Type Department Care Team (Late st Contact Info) Description 08/26/[address] [phone] Aminata Linda PA-C [address] [place] [address] Social History Tobacco Use Types Packs/Day Years Used Date Smoking Tobacco: Former Cigarettes Q uit: 05/21/2024 Smokeless Tobacco: Former Comments:currently vaping Alcohol Use Standard Drinks/Week Comments Not Currently 0 (1 standard drink = 0.6 oz pur e alcohol) [facility] Utilities Answer Date Recorded In the past 12 months has [employer] electric, gas, oil, or water company threatened to shut off services in your home? No 05/19/2024 Social Connection and Isolation Panel [NHANES] A nswer Date Recorded In a typical week, how many times do you talk on the phone with family, friends, or neighbors? Never 05/19/2024 Frequency of Social Gatherings with Friends and Family Not on file 05/19/2024 Attends Faith Services Not on file 05/19 Active Member [...] any time in the past 12 m [facility], were you homeless or living in a custodial (including now)? No 05/19/2024 Sex and Gender Information Value Date Recorded Sex Assigned at Male 11/08/2023 3:45 AM EDT Gender Identity Male 11/08/2023 3:45 AM EDT Sexual Orientation Heterosexual (straight) 11/07 3:45 AM EDT documented as of this encounter Miscellaneous Notes * Telephone Encounter - Lizy Gilliland MA - 08/26/2024 10:39 AM EST Spoke with Herbie and he is aware Dr Belle isn't taking new patients because we aren't local. I faxed referral over to them any ways and told patient he needs to follow up with them in 2 weeks if hedoesn't here from them. If they don't make appointment he is to call his insurance company to see where he can go fro GI. Sent referral to Dr Ramey [phone]. * Telephone Encounter - Aminata Linda PA-C - 08/26/2024 9:28 AM EST Pt [facility] not [facility] see [facility]- referral placed for GI and general surgery- put in today- for [facility]- I cannot print because there is no toner. Please print and take care of documented in this encounter Plan of Treatment Upcoming Encounters Date Type Department Care Team (Late st Contact Info) Description 09/22/2024 8:00 AM EDT Appointment [facility] Pulmonary Laboratory & Rehabilitation [address] [place] [phone] Panchito Hurley MD 85 [facility] [address] [place] [address] 11/06/2024 2:45 PM EDT Appointment [facility] Heart & Vascular [place] 7 [facility] 201 [place] [phone] Nahid Preciado MD [address] [place] [address] [place] [address] 12/11/2024 11:00 AM EDT Office Visit [facility] Medical [facility] 100 [facility] [address] [place] [phone] Aminata Linda PA-C [address] [place] [address] 01/20/2025 1:45 PM EDT Office Visit [facility] [place] [address] [place] [address] Panchito Hurley MD [address] [place] [address] documented as of this encounter Visit Diagnoses Not on filedocumented in this encounter Care Teams Junior Art Director Relationship Specialty Start Date End Date Aminata Linda PA-C [address] [place] [address] PCP - General Internal Medicine 11/07/23 Nahdi Preciado MD [address] [place] [address] Primary Electric Distribution Engineer Cardiovascular Disease 08/11/24 documented as of this encounter
== END 2024-09-18 09:18 | disposition home or self-care (01) ==
LOC: HO.HGS 08:57
PROVIDERS: PCP Physician Assistant Medical; Referring Provider Physician Assistant Medical; Visit Provider Surgery
DX: K40.90 Unilateral inguinal hernia, without obstruction or gangrene, not specified as recurrent (principal)
CPT/HCPCS: 99204

== ENCOUNTER → 2024-09-18 08:57 | Outpatient (BNVA) | payer MEDICARE, SELFPAY | PROVIDERS: PCP Physician Assistant Medical; Referring Provider Physician Assistant Medical; Visit Provider Surgery | DX: K40.90 Unilateral inguinal hernia, without obstruction or gangrene, not specified as recurrent (principal) | CPT/HCPCS: 99202 ==

== ENCOUNTER 2025-02-25 14:38 | Outpatient (AMB) | payer MEDICARE, SELFPAY ==
--- NOTE | 2025-02-25 14:45 | A.OFFVIS_ITS ---
Vital Signs 02/25/25 14:54 Height 5 ft 10 in Weight 213 lb BMI 30.6 BP 128/70 Blood Pressure Location Rt brachial Position Sitting Pulse 80 Pulse Source Pulse Oximeter Pulse Oximetry (%) 95 Oxygen Delivery Method Room Air Intake Visit Reasons: Colonoscopy Screening Intake Note: New pt for colo screening. Recall (2009) Pt is a cardiac pt, on eliquis. See notes. CC: Pt denies any GI Sx or concerns at this time. Pt was cleared per cardio concerns for Gen Surg (inguinal hernia) as well as colo afterwards. Stock Handler Required: No Accompanied by: Self / Same As Patient Allergies No Known Allergies Allergy (Verified 02/25/25 14:45) HPI HPI Colonoscopy Screening: Details: 69 year old? male with past medical history of COPD, PAF, thrombasthenia, psoriatic arthritis, hyperlipidemia, diverticulosis, hypertension, and anxiety, tobacco use, ETOH use, is here today for pre colonoscopy screening.? Patient was sent to us by his PCP.? Last colonoscopy in 2009. Patient was just cleared by his engraver set up operator and electronic prepress system operator for surgery. Patient will have inguinal hernia repair in March with Dr. Ramey. Patient denies any gastrointestinal symptoms in the past or at present.? Denies any personal or family history of gastrointestinal disease, colon polyps, or CRC.? Denies history of difficulty with sedation or anesthesia in the past.? Negative for history of sleep apnea.? Denies any history of cardiac, renal, pulmonary, or hepatic disease.?? No history of infectious? diseases like hepatitis A, B, C, HIV or tuberculosis.? Patient is on Eliquis [facility] Medical History Bilateral hip pain Back pain Hx of concussion COPD (chronic obstructive pulmonary disease) PAF (paroxysmal atrial fibrillation) Paranoid personality disorder Thrombasthenia Psoriatic arthritis Overweight Hyponatremia Hyperlipemia Diverticula of colon Alcohol abuse Anxiety Hypercholesterolemia Hypertension Surgical History Hx of colonoscopy (~2009) Family History Father Pancreatic cancer Social History Household Members: None Housing: House Are you a primary manager medicare marketing to a significant other at home: No Do you presently have visiting nurse or other home services: No 75 years or older and lives alone: No Patient Tobacco Use Status: Current someday Tobacco user Tobacco use type: Cigarette Smoked in Last 30 Days: Yes e-Cigarette/Vaping Use: Currently Using Use of substances other than those prescribed or required for medical reasons: No Advance Directives: No Advance Directives Information Provided: Yes Advance Directives on File: No Healthcare Proxy: No Review of Systems Const Denies weight gain and Denies weight loss ENT Reports no additional complaints, Denies dysphagia and Denies odynophagia Card Reports no additional complaints Resp Reports no additional complaints GI Denies abdominal pain, Denies belching, Denies melena, Denies bloating, Denies change in bowel habits, Denies dysphagia, Denies excessive flatus, Denies dyspepsia, Denies heartburn, Denies diarrhea, Denies loose stools, Denies nausea, Denies odynophagia and Denies vomiting Reports no additional complaints Musc Reports no additional complaints Neuro Reports no additional complaints Psych Reports no additional complaints Endo Reports no additional complaints Physical Exam Vital Signs: Last Vital Signs Pulse 80 02/25/25 14:54 BP 128/70 02/25/25 14:54 Pulse Ox 95 02/25/25 14:54 Oxygen Delivery Method Room Air 02/25/25 14:54 BMI result Body Mass Index 30.6 Const General: healthy appearing, no acute distress and well developed Nutritional Appearance: well nourished Orientation/consciousness: patient oriented x3 Resp Effort & Inspection: normal respiratory effort, able to speak in complete sentences, no tracheal deviation and symmetric chest movement Auscultation: clear to auscultation bilaterally Cardio Rate: regular rate GI Inspection: Yes normal to inspection and No distended Palpation (GI): Soft to palpation, not firm, nontender and No hepatosplenomegaly present Auscultation: normal bowel sounds General: Yes no CVA tenderness Back/Spine/Pelvis Back: no CVA tenderness Skin General skin exam: elasticity normal, turgor normal and dry skin Neuro General: patient oriented x3 Psych Appearance: grossly normal Mental Status: mental status grossly normal Assessment & Plan Assessment & Plan (1) Screen for colon cancer: Code(s): Z12.11 - Encounter for screening for malignant neoplasm of colon Plan Patient denies any GI, cardiac or respiratory symptoms.? Denies any issues with anesthesia in the past.? Denies any history of sleep apnea.? No history infectious diseases in the past or present.? Patient is on Eliquis. Cleared by Cardiology and pulmonology for inguinal hernia repair. Patient will have that in March. Patient was informed to stop Eliquis 48 hours before colonoscopy..? No family or personal history of colon cancer or polyps.? Patient denies melena, hematochezia, unintentional weight loss or ribbon like stools.? Discussed at length the pre-procedure,? prep, diet & medications as well as what to expect prior, during and after the procedure.?? Stressed the importance of good bowel prep.? Recommended the use of Vaseline or Calmoseptine OTC & baby wipes with bowel movements to promote comfort.? ?Patient verbalizes unders tanding and agrees to plan of care.? He was given the opportunity to ask questions and all questions answered.? We will see him after the procedure.? Medications: New bisacodyl (Dulcolax (bisacodyl)) take 4 tabs at noon the day before your colonoscopy 20 mg (4 x 5 mg) PO ONCE 4 tabs 0RF constipation 1 day Z12.11 - Encounter for screening for malignant neoplasm of colon polyethylene glycol 3350 (Miralax) As directed by gastroenterology department at [facility] 238 grams PO ONCE 238 grams 0RF Z12.11 - Encounter for screening for malignant neoplasm of colon Coding Level of Care Code New Pt Level 3 (51254) Diagnoses Screen for colon cancer Z12.11 Time Spent (min) 40 Comment 30 minutes spent with patient and additional 10 minutes spent reviewing his records
[2025-02-25 14:54] VITALS: BP 128/70; PULSE 80; O2SAT 95; BMI 30.6
--- OUTSIDE RECORDS SUMMARY | 2025-02-25 15:33 | XMS_ITS | Clinical Summary ---
Author Organization [facility] [address] [facility] Address [address] [place] [address] Phone Care Team Providers Care Pyrometallurgical Engineer Name Role Phone Solange Medina MD Primary Care Provider [phone] Allergies Active Allergy Reactions Criticality Noted Date Comments Clobetasol Propionate Swelling 12/30/2015 Lares Tar Swelling 12/30/2015 Medications magnesium oxide 500 [...] 25.0-29.9) 10/07/2021 Anxiety 03/09/2016 Paranoid personality (disorder) ([facility] V24, S/[facility] V28) 03/06/2016 Overview (07/29/2024): Hospitalized 02/2016 Hyponatremia 02/25/2016 Subclinical hypothyroidism 02/08/2016 Abnormal LFTs (liver function tests) 02/02/2016 Overview (07/29/2024): Associated with alcohol abuse, SGPT 97, SGPT 118, alk phos 144 on 10/28/15 Macrocytic anemia 02/02/2016 Overview (07/29/2024): Associated with alcohol abuse, 10.8/31.6 with MCV of 105.7, vitamin B 12 617 on 10/28/15 Psoriatic arthritis ([facility] V24, [facility] V28) 1 09/03/2012 Overview (07/29/2024): Onset . [...] Started at age 29. Humira since ~ [id number]. Se[address] Dr[address] Lebron Diamond Tobacco use disorder [...] AM EST Narrative 09/10/2023 5:00 AM EST [facility] Diagnostic Imaging Department [address] [place] [id number] Patient: CLAIREDAVINJACQUIE Chadwick./Age/Sex: 1955 - 67 - M Unit#: [id number] Location/Status: SPDICATL/REG CLI Mnemonic[facility] Ordering Physician: VIJI HAYDEN MD CT Lung [...] by: MAITE MELGOZA MD Dic Date/Time: 09/10/23 0452 Sign date/Time: 09/10/23 0500 Procedure Note Maite Melgoza MD - 02/25/2024 [facility] Diagnostic Imaging Department [address] [place] [id number] Patient: KATHYJACQUIE /Age/Sex: 1955 - 67 - M Unit#: [id number] Location/Status: SPDICATLS/REG CLI Mnemonic/Ordering Site: [facility] Ordering Physician: VIJI HAYDEN MD CT Lung [...] by: MAITE MELGOZA MD Dic Date/Time: 09/10/23 4866 Sign date/Time: 09/10/23 0508 Viji Hayden MD IMG CT PROCEDURES Final [...] Maintenance Insurance [employer] Care Teams Pyrometallurgical Engineer Relationship Specialty Start Date End Date Solange Medina MD [address] [place] [id number] PCP - General Internal Medicine 02/14/21
--- OUTSIDE RECORDS SUMMARY | 2025-02-25 15:33 | XMS_ITS | Encounter Summary ---
Author Organization [facility] Address [address] [place] [address] Care Team Providers Care Oil Operator Name Role Phone Aminata Linda PA-C Primary Care Provi chrissy Nahid Preciado MD Unavailable [phone] Panchito Hurley MD Unavailable [phone] Rony Acosta MD Unavailable [phone] Encounter Details Date Type Department Care Team (Late st Contact Info) Description 09/18/2024 Scanned Document [facility] INTERNAL MED SCAN General Internal Medicine, Scan Social History Tobacco Use Types Packs/Day Years Used Date Smoking Tobacco: Former Cigarettes 2.3 41.9 1 975 - 05/22/2024 Smokeless Tobacco: Former Comments:currently vaping Alcohol Use Standard Drinks/Week Comments Not Currently 0 (1 standard drink = 0.6 oz pur e alcohol) [facility] Utilities Answer Date Recorded In the past 12 months has [employer] electric, gas, oil, or water company threatened to shut off services in your home? No 05/19/2024 Social Connection and Isolation Panel [NHANES] A nswer Date Recorded In a typical week, how many times do you talk on the phone with family, friends, or neighbors? Never 05/19/2024 Frequency of Social Gatherings with Friends and Family Not on file 05/19/2024 Attends Denominational Services Not on file 05/19 Active Member [...] No 05/19/2024 Housing Stability Vital Sign Answer Jde e Recorded In the last 12 months, was t here a time when you were not able to pay the mortgage or rent on time? No 05/19/2024 In the past 12 months, how m any times have you moved where you were living? 0 05/19/2024 At any time in the past 12 m [facility], were you homeless or living in a senior care (including now)? 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, 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 Not on file Not on file documented as of this encounter Plan of Treatment Upcoming Encounters Date Type Department Care Team (Late st Contact Info) Description 05/13/2025 2:00 PM EST Office Visit [address] [phone] Minal Vazquez, PRODUCTION LINE MANAGER [address] [facility] [address] [place] [address] 05/19/2025 11:20 AM EST Consult [facility] [place] [address] [place] [address] Aminata Linda PA-C [address] [phone] Sally Fisher, PRODUCTION LINE MANAGER [address] [place] [address] 05/28/2025 10:30 AM EST Office Visit [address] [phone] Aminata Linda PA-C [address] [place] [address] 08/26/2025 10:00 AM EST Office Visit [facility] [address] [place] [phone] Nahid Preciado MD [address] [place] [address] documented as of this encounter Visit Diagnoses Not on filedocumented in this encounter Care Teams Oil Operator Relationship Specialty Start Date End Date Aminata Linda PA-C [address] [place] [phone] PCP - General Internal Medicine 11/07/23 Nahid Preciado MD [address] [place], [place] [phone] Primary Certified Coding Specialist Cardiovascular Disease 08/11/24 Panchito Hurley MD [address] [place] [phone] Pulmonary Disease 09/08/24 Royn Acosta MD [address] [place] [address] Physician Cardiac Electrophysiology 02/06/25 documented as of this encounter
== END 2025-02-25 15:22 | disposition home or self-care (01) ==
LOC: HO.HGI 14:38
PROVIDERS: PCP Physician Assistant Medical; Visit Provider Nurse Practitioner Family
DX: Z01.818 Encounter for other preprocedural examination (principal); Z12.11 Encounter for screening for malignant neoplasm of colon
CPT/HCPCS: 99024

== ENCOUNTER → 2025-02-25 14:38 | Outpatient (BNVA) | payer MEDICARE, SELFPAY | PROVIDERS: PCP Physician Assistant Medical; Visit Provider Nurse Practitioner Family | DX: Z12.11 Encounter for screening for malignant neoplasm of colon (principal) | CPT/HCPCS: 99212 ==

== ENCOUNTER 2025-03-12 05:49 | Day surgery (SDC) | payer MEDICARE, SELFPAY ==
--- OUTSIDE RECORDS SUMMARY | 2025-02-23 09:28 | XMS_ITS | Encounter Summary ---
Author Organization [facility] Address [address] [place] [address] Care Team Providers Care Deputy Sheriff Custody Name Role Phone Aminata Linda PA-C Primary Care Provi chrissy Nahid Preciado MD Unavailable [phone] Panchito Hurley MD Unavailable [phone] Rony Acosta MD Unavailable [phone] Encounter Details Date Type Department Care Team (Late st Contact Info) Description 09/18/2024 Scanned Document [facility] INTERNAL MED SCAN General Internal Medicine, Scan Social History Tobacco Use Types Packs/Day Years Used Date Smoking Tobacco: Former Cigarettes 2.3 41.9 1 975 - 05/22/2024 Smokeless Tobacco: Former Comments:currently vaping Alcohol Use Standard Drinks/Week Comments Not Currently 0 (1 standard drink = 0.6 oz pur e alcohol) [facility] Utilities Answer Date Recorded In the past 12 months has [employer] electric, gas, oil, or water company threatened to shut off services in your home? No 05/19/2024 Social Connection and Isolation Panel [NHANES] A nswer Date Recorded In a typical week, how many times do you talk on the phone with family, friends, or neighbors? Never 05/19/2024 Frequency of Social Gatherings with Friends and Family Not on file 05/19/2024 Attends Islam Services Not on file 05/19 Active Member of Clubs or Organizations Not on f ile 05/19/2024 Attends Club or Organization Meetings Not on seernity e 05/19/2024 Marital Status Not on file [...] any time in the past 12 m [facility], were you homeless or living in a halfway (including now)? 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, 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 Not on file Not on file documented as of this encounter Plan of Treatment Upcoming Encounters Date Type Department Care Team (Late st Contact Info) Description 05/13/2025 2:00 PM EST Office Visit [address] [phone] Minal Vazquez, POST ANESTHESIA NURSE 8[address] [facility] 101 [place] [address] 05/19/2025 11:20 AM EST Consult [facility] Pulmonary [place] [address] [place] [address] Aminata Linda PA-C [address] [place] [phone] Sally Fisher, POST ANESTHESIA NURSE [address] [place] [address] 05/28/2025 10:30 AM EST Office Visit [address] [phone] Aminata Linda PA-C [address] [place] [address] 08/26/2025 10:00 AM EST Office Visit [facility] Heart & Vascular [facility] 7 [facility] 201 [place] [phone] Nahid Preciado MD [address] [place] [address] documented as of this encounter Visit Diagnoses Not on filedocumented in this encounter Care Teams Deputy Sheriff Custody Relationship Specialty Start Date End Date Aminata Linda PA-C [address] [place] [address] PCP - General Internal Medicine 11/07/23 Nahid Preciado MD [address] [place] [address] [phone] Primary Glaze Grinder Cardiovascular Disease 08/11/24 Panchito Hurley MD [address] [place] [address] Pulmonary Disease 09/08/24 Rony Acosta MD [address] [place] [address] Physician Cardiac Electrophysiology 02/06/25 documented as of this encounter
--- OUTSIDE RECORDS SUMMARY | 2025-02-23 09:28 | XMS_ITS | Clinical Summary ---
Author Organization [facility] [address] [facility] Address [address] [place] [address] Phone Care Team Providers Care Plant Utility Person Name Role Phone Solange Medina MD Primary Care Provider [phone] Allergies Active Allergy Reactions Criticality Noted Date Comments Clobetasol Propionate Swelling 12/30/2015 [place]os Tar Swelling 12/30/2015 Medications magnesium oxide 500 [...] 25.0-29.9) 10/07/2021 Anxiety 03/09/2016 Paranoid personality (disorder) ([facility] V24, S/[facility] V28) 03/06/2016 Overview (07/29/2024): Hospitalized 02/2016 Hyponatremia 02/25/2016 Subclinical hypothyroidism 02/08/2016 Abnormal LFTs (liver function tests) 02/02/2016 Overview (07/29/2024): Associated with alcohol abuse, SGPT 97, SGPT 118, alk phos 144 on 10/28/15 Macrocytic anemia 02/02/2016 Overview (07/29/2024): Associated with alcohol abuse, 10.8/31.6 with MCV of 105.7, vitamin B 12 617 on 10/28/15 Psoriatic arthritis ([facility] V24, [facility] V28) 1 09/03/2012 Overview (07/29/2024): Onset . Enbrel in past. Humira ~ 2008- until summer 2014 (stopped because the condition had improved.) Diverticulitis of colon without hemorrhage 04/21 Overview (07/29/2024): scattered, colonoscopy Dr Mcpherson 03/15, repeat 2016. Did not respond. 12/28 FIT neg 05/31 cologuard positive Alcohol abuse 11/15/2006 Essential hypertension, benign 11/15/2006 Psoriasis 11/15/2006 Overview (07/29/2024): Saw EDY Elizalde derm 02/28/16 Started at age 29. Humira since ~ 3670-[address] Lebron Diamond Tobacco use disorder 11/15/2006 Overview (07/29/2024): Refused LDCT 07/30 (lack of insurance) 08/30 LDCT stable. 12 mo 08/31, 09/01. 12 mo Immunizations Name Administration Dates Next Due Influenza trivalent, 0.5mL ( Fluad) 65yo and older 04/03/2023 Influenza trivalent, 0.5mL, preservative free (Fluarix; FluLaval; Fluzone) ages 6mo and older (Afluria) 3 years and older 04/22/2014,03/18/2009,05/06/2007 Pfizer SARS-CoV-2 COVID-19, mRNA, LNP-S, preservative free 04/03/2023,04/24/2022,11/24/2021,04/08 [...] of 2 - Risk 2-dose series) 11/10/1975 RSV Immunization Adult Patients (1 - Risk 60-74 years 1-dose series) 2016 04/20/2023 Colorectal Cancer Screening: Stool Based Tests (FOBT/FIT) 06/17/2022 Falls Risk Assessment 06/17/2022 Medicare Annual Wellness Visit 06/17/2022 Social Influencers of Health Screening 06/17/2022 COVID-19 Vaccine ( season) 2024 10/25/2023, 04/03/2023, 04/24/2022, Additional history exists Hypertension/CHF/CAD Annual BMP Blood Test 05/22/2024 05/22/2023 Depression Screening 07/09/2024 Influenza Vaccine (#1) 2025 , 04/03/2023, 04/22/2014, Additional history exists Lung Cancer Screening (Low Dose CT) 09/02/2025 09/02/2024, 09/10/2023, 09/06/2022, Additional history exists Cholesterol Screening (Lipid Panel) 05/22/2028 05/22/2023 DTaP,Tdap,and Td Vaccines (4 - Td or Tdap) 05/22/2033 05/22/2023, 07/03/2013, 07/10/2006 Hepatitis C Screening Completed 02/03/2014 Zoster Vaccines Completed 06/28/2021, 06/09, 04/28/2021, Additional history exists Abdominal Aortic Aneurysm (AAA) Screen Completed 05/17/2022, 05/17/2022 RSV Immunization Patients Under 20 months Aged Out 04/20/2023 No longer eligible based on patient's age to complete this topic Pneumococcal Vaccine: 50+ Years Completed 05/20/2024, 05/11/2023, [...] age to complete this topic Meningococcal B Vaccine Aged Out No l onger eligible based on patient's age to complete [...] AM EST Narrative 09/10/2023 5:00 AM EST [facility] Diagnostic Imaging Department [address] [place] [address] Patient: CLAIREDAVINJACQUIE Chadwick./Age/Sex: 1955 - 67 - M Unit#: [id number] Location/Status: SPDICATL/REG CLI Mnemonic[facility] Ordering Physician: VIJI HAYDEN MD CT Lung Screening Low Dose - 09/08/23725 Report Status:Signed Indication: Greater than 20 total pack-year smoking history, asymptomatic current smoker Technique: Low-dose CT scan of the chest obtained as a lung cancer screening study. Multiplanar reformatted images were obtained. Dose reduction technique: ASIR (Adaptive statistical iterative reconstruction) and/or AEC (automated exposure control) COMPARISON: August 2022. FINDINGS: Lack of intravenous contrast limits evaluation of the julian, vascular structures and visualized abdominal viscera. Lungs/airways: Trachea and central airways are patent. Mild bronchial wall thickening. Emphysematous changes. Atelectasis in the lingula, similar to prior. 1 mm solid nodule left upper lobe (series 3, image 79), similar to prior. Base of the neck, mediastinum, heart, chest wall, vessels: The assessment of hilar lymphadenopathy is difficult without the use of IV contrast. No enlarged mediastinal lymphadenopathy. Coronary artery calcifications. Upper abdomen: [...] with LDCT in 12 months. Dictating Physician: MAITE MELGOZA MD Electronically Signed by: MAITE MELGOZA MD Dic Date/Time: 09/10/23 0458 Sign date/Time: 09/10/23 0500 Procedure Note Maite Melgoza MD - 02/25/2024 [facility] Diagnostic Imaging Department [address] [place] [address] Patient: KATHYJACQUIE /Age/Sex: 1955 - 67 - M Unit#: [id number] Location/Status: SPDICATLS/REG CLI Mnemonic/Ordering Site: [facility] Ordering Physician: VIJI HAYDEN MD CT Lung [...] by: MAITE MELGOZA MD Dic Date/Time: 09/10/23 8960 Sign date/Time: 09/10/23 0[address] IM[address] PROCEDURES Final Result * Annual BMP Blood Test (05/22/2023) Annual BMP Blood Test abstracted Historical Provider HEALTH MAINTENANCE Final Result * Lipid panel (05/22/2023) LDL/HDL Ratio 3 0 - 4 Triglycerides 73 0 - 150 mg/dL Cholesterol 140 0 - 200 mg/dL HDL 46 >=40 mg/dL LDL Cholesterol 80 0 - 100 mg/dL Blood Venous blood specimen / Unknown Historical Provider LAB BLOOD ORDERABLES Gabbi l Result * US ABDOMINAL AORTA REAL TIME SCREEN STUDY [...] Negative screening examination for abdominal aortic aneurysm. C Christiano Medina MD IMG US PROCEDURES Final Result * Hepatitis C Screening (02/03/2014) Hepatitis C Screening abstracted Historical Provider HEALTH MAINTENANCE Final Result from Last 3 Months or Most Recently Relevant to Health Maintenance Insurance [employer] MED[employer]ARE [employer]VANTAGE Care Teams Plant Utility Person Relationship Specialty Start Date End Date Solange Medina MD [address] [place] [address] PCP - General Internal Medicine 02/14/21
--- OUTSIDE RECORDS SUMMARY | 2025-02-23 09:28 | XMS_ITS ---
Author Name [facility] Organization Unknown Results Test Name/Text Value Interpretation Date Range Source PMV Bld Medardo-Riki 9.4 fL Normal 09/04/2024 7.5 - 12.5 [facility] WBC # Bld Auto 6.1 Thousand/uL Normal 09/04/2024 3.8 - 10 .8 [facility] Basophils # Bld Auto 49.0 cells/uL Normal 09/04/2024 0 - 200 [facility] Eosinophil # Bld Auto 207.0 cells/uL Normal 09/04/2024 15 - 500 [facility] Neutrophils/leuk NFr Bld Auto 70.5 % Normal 09/04/2024 [facility] Lymphocytes # Bld Auto 1104.0 cells/uL Normal 09/04/2024 850 - 3900 [facility] Lymphocytes/leuk NFr Bld Auto 18.1 % Normal 09/04/2024 [facility] RBC # Bld Auto 4.32 Million/uL Normal 09/04/2024 4.2 - 5. 8 [facility] RDW RBC Auto-Rto 11.8 % Normal 09/04/2024 11 - 15 [facility] MCH RBC Qn Auto 33.6 pg Above high normal 09/04/2024 27 - 33 [facility] Neutrophils # Bld Auto 4301.0 cells/uL Normal 09/04/2024 1500 - 7800 [facility] Hgb Bld-mCnc 14.5 g/dL Normal 09/04/2024 13.2 - 17.1 [facility] Monocytes/leuk NFr Bld Auto 7.2 % Normal 09/04/2024 [facility] Monocytes # Bld Auto 439.0 cells/uL Normal 09/04/2024 200 - 950 [facility] Basophils/leuk NFr Bld Auto 0.8 % Normal 09/04/2024 [facility] Platelet # Bld Auto 201.0 Thousand/uL Normal 09/04/2024 140 - 400 [facility] MCV RBC Auto 98.6 fL Normal 09/04/2024 80 - 100 [facility] Eosinophil/leuk NFr Bld Auto 3.4 % Normal 09/04/2024 [facility] Hct VFr Bld Auto 42.6 % Normal 09/04/2024 38.5 - 50 QU EST MCHC RBC Auto-mCnc 34.0 g/dL Normal 09/04/2024 32 - 36 [facility] PSA SerPl-mCnc 0.81 ng/mL Normal 09/04/2024 - [facility] Folate SerPl-mCnc >24.0 Normal 08/30/2024 Q [facility] Vit B12 SerPl-mCnc 1157.0 pg/mL Above high normal 08/30/2024 200 - 1100 [facility] History of Medication Use Medication Directions Dispensed Refills Start Date End Date Stat us albuterol (PROVENTIL HFA; VENTOLIN HFA) 108 (90 Base) MCG/ACT inhaler Inhale 2 puffs every 4 (four) hours as needed for wheezing. 01/20/2025 active umeclidinium-vilantero l (ANORO ELLIPTA) 62.5-25 MCG/ACT inhaler Inhale 1 puff daily. 01/20/2025 active apixaban (ELIQUIS) 5 MG tablet Take 1 tablet (5 mg total) by mouth 2 (two) times a day. 11/26/2024 active metoPROLOL TARTRATE (LOPRESSOR) 50 MG tablet Take 1 tablet (50 mg total) by mouth 2 (two) times a day. 11/26/2024 active fluticasone-umeclidini um-vilanterol (TRELEGY ELLIPTA) 100-62.5-25 mcg/act inhaler Inhale 1 puff daily. 10/03/2024 active albuterol (PROVENTIL) (0.083%) 2.5 mg/3 mL nebulizer solution 2.5 mg 2.5 mg, Nebulization, Once, On Sun09/22/24 at 0800, For 1 dose, Albuterol or Duoneb Indication: Other (use comment) 09/22/2024 active risankizumab-rzaa (Skyrizi Pen) 150 mg/mL Solution Auto-injector Inject 1 mL (150 mg total) under the skin. 07/28/2024 active albuterol (PROVENTIL HFA; VENTOLIN HFA) 108 (90 Base) MCG/ACT inhaler 200 puffs. 11/06/2023 active triamcinolone (KENALOG) 0.1 % cream PLEASE SEE ATTACHED FOR DETAILED DIRECTIONS 09/20/2023 active atorvastatin (LIPITOR) 10 MG tablet TAKE 1 TABLET BY MOUTH EVERY DAY 09/09/2023 active omega-3 fatty acids (FISH OIL) 1000 MG Cap capsule Take by mouth. active Allergies Allergen Reaction Severity Comment Documented Date Source Statu s CLOBETASOL SWELLING 12/30/2015 [facility] COAL TAR EXTRACT SWELLING 12/30/2015 [facility] Problems Problem Status Onset Date Problem Type Date of Resolution Source Paroxysmal atrial fibrillation (HCC) active EncounterDiagnosisAct HHT Anxiety active 2024-05-20 ProblemAct HHT Psoriasis active 2023-11-07 ProblemAct [facility] History of ETOH abuse active 2024-05-20 ProblemAct [facility] Primary hypertension active 2023-11-07 ProblemAct [facility] Personal history of nicotine dependence active 2025-01-20 ProblemAct [facility] Atrial fibrillation active 2024-11-26 ProblemAct [facility] Chronic obstructive pulmonary disease active 2024-12-11 ProblemAct [facility] Shortness of breath active 2024-09-08 ProblemAct [facility] Psoriatic arthritis active 2024-05-20 ProblemAct [facility] Thrombocytopenia active 2023-11-14 ProblemAct H [facility] Tobacco use active 2023-11-07 ProblemAct [facility] Current use of residential anticoagulation active EncounterDiagnosisAct [facility] Other hyperlipidemia active 2023-11-07 ProblemAct [facility] Immunizations Vaccine Date Source Lot Number Status Pneumococcal Conjugate 20-Valent 05/20/2024 [facility] [id number] completed Influenza, Unspecified 03/13/2024 CCT co mpleted Zoster Vaccine Recombinant (Shingrix) 06/28/2021 CCT [id number] completed Zoster Vaccine Recombinant (Shingrix) 04/28/2021 CCT [id number] completed Encounters Encounter Type Encounter Reason Primary Diagnosis Location Date Ambulatory Essential (primary) hypertension Essential (primary) hypertension [facility] 02/10/2025 Ambulatory Other persistent atrial fibrillation Other persistent atrial fibrillation [facility] 02/06/2025 Ambulatory Chronic obstructive pulmonary disease, unspecified Chronic obstructive pulmonary disease, unspecified [facility] 01/20/2025 Ambulatory Unspecified atrial fibrillation Unspecified atrial fibrillation [facility] 12/11/2024 Ambulatory Essential (primary) hypertension Essential (primary) hypertension [facility] 11/26/2024 Ambulatory Other forms of dyspnea Other forms of dyspnea [facility] 11/06/2024 Ambulatory Tobacco use Tobacco use [place] 09/22/2024 Ambulatory Tobacco use Tobacco use [place] 09/08/2024 Ambulatory Encounter for screening for malignant neoplasm of colon Encounter for screening for malignant neoplasm of colon [facility] 08/26/2024 Ambulatory Other forms of dyspnea Other forms of dyspnea [facility] 08/04/2024 Ambulatory Counseling, unspecified Counseling, unspecified [facility] 07/21/2024 Ambulatory [facility] 06/17/2024 Ambulatory [facility] 06/17/2024 Ambulatory Encounter for immunization Encounter for immunization [facility] 05/20/2024 Ambulatory Essential (primary) hypertension Essential (primary) hypertension [facility] 11/07/2023 Care Team Organization Name Specialty Phone Email Start Date End Da te [facility] RHIANNA Primary Care 11/08/2023 [facility] BRONSON MOCTEZUMA Primary Care 11/07/2023 [facility] NO PCP Primary Care 10/12/2023 [facility] Jace Medina Primary Care 05/16/2022 02/25/2024
[2025-02-23 09:39] VITALS: BP 117/73; PULSE 55; RESP 16; O2SAT 96; BMI 31.5
--- NOTE | 2025-02-23 10:21 | HO.ANESPROP2 ---
Documented by User: Priscilla Edwards NP 03/10/25 14:34 HPI - Anesthesia Eval Consult details Narrative: 69 yr old male for right inguinal hernia repair reducible with mesh, seen in PAT. No CP/SOB with bike riding couple times per week, stair climbing for laundry. Atrial fibrillation: on eliquis, will hold 3 days prior. Last saw cardiology (Dr. Preciado, [facility]) 02/10/[address] Man 02/06/25; recently had both echo showing mild LVH & normal nuclear stress test. Optimized by cardiology at 02/10/25 visit, stating he is low risk for moderate risk procedure. COPD: follows with pulmonary, now on Anoro, using albuterol twice daily. Optimized for surgery as moderate risk with pulmonary at 12/10/24 visit FAISAL: +STOP BANG, going for sleep study May 2025 [facility] Active Problems Active Problems: All Active Problems Right inguinal hernia (Acute) Past Medical History Medical History Bilateral hip pain Back pain Hx of concussion COPD (chronic obstructive pulmonary disease) PAF (paroxysmal atrial fibrillation) Paranoid personality disorder Thrombasthenia Psoriatic arthritis Overweight Hyponatremia Hyperlipemia Diverticula of colon Alcohol abuse Anxiety Hypercholesterolemia Hypertension Family History Family History Father Pancreatic cancer Family history of problems with anesthesia: No Surgical History Surgical History Hx of colonoscopy (~2009) History of Problems with Anesthesia: No Social History Social History Household Members: None Housing: House Are you a primary child care attendant school to a significant other at home: No Do you presently have visiting nurse or other home services: No Patient Tobacco Use Status: Current someday Tobacco user Tobacco use type: Cigarette Cigarettes Per Day: 10 Smoked in Last 30 Days: Yes e-Cigarette/Vaping Use: Currently Using Use of substances other than those prescribed or required for medical reasons: No Have you been hit, kicked, punched, or otherwise hurt by someone within the past year? If so, by whom?: No Are you DNR?: No Advance Directives: No Advance Directives Information Provided: Yes Advance Directives on File: No Meds Allergies Allergy/AdvReac Type Severity Reaction Status Date / Time No Known Allergies Allergy Verified 02/25/25 14:45 Home Medications ?Medication ?Instructions ?Recorded ?Confirmed ?Last Taken ?Type atorvastatin 10 mg tablet 10 mg PO DAILY 09/18/24 02/23/25 Unknown History cholecalciferol (vitamin D3) 25 25 mcg PO DAILY 09/18/24 02/23/25 Unknown History mcg (1,000 unit) capsule hydroxyzine HCl 25 mg tablet 25 mg PO BID PRN Anxiety 09/18/24 02/23/25 Unknown History mocsvllq-bzv-devur 120 mcg-lutein 1 tab PO DAILY 09/18/24 02/23/25 Unknown History 150 mcg-herb 50 mg chewable tablet (Alive Men's 50 Plus Multivitamin) omega 3-ywg-lrd-fish oil 1,000 mg 1 cap PO DAILY 09/18/24 02/23/25 Unknown History (120 mg-180 mg) capsule (Fish Oil) albuterol sulfate 90 mcg/actuation 2 puff inhalation Q4-6H PRN 02/23/25 02/23/25 Unknown History aerosol inhaler Shortness Of Breath Or Wheezing apixaban 5 mg tablet (Eliquis) 5 mg PO BID 02/23/25 02/23/25 Unknown History metoprolol tartrate 50 mg tablet 50 mg PO BID 02/23/25 02/23/25 Unknown History risankizumab-rzaa 150 mg/mL 150 mg subcut Q12W 02/23/25 02/23/25 Unknown History subcutaneous pen injector (Skyrizi) umeclidinium 62.5 mcg-vilanterol 1 ea inhalation DAILY 02/23/25 02/23/25 Unknown History 25 mcg/actuation powdr for inhalation (Anoro Ellipta) Exam Height,Weight and Vital Signs: Height 5 ft 9 in Weight 96.615 kg Last Vital Signs Pulse 55 02/23/25 09:39 Resp 16 02/23/25 09:39 BP 117/73 02/23/25 09:39 Pulse Ox 96 02/23/25 09:39 O2 Del Method Room Air 02/23/25 09:39 Narrative Narrative: Stress test with myocardial perfusion 07/2024 Normal EF 73%; no ischemia Echo 11/2024 Discrete upper septal thickening chordal SHANTEL, mild LVOT obstruction during Valsalva. Gradient 7 at rest, 25 with Valsalva. EF 65-70%. No wall motion abnormalites. Tachycardia present. Normal RV. No pulmonary hypertension. EKG 02/10/25 Sinus marzena, rate 56 Small inferior Q waves When compared with ECG 02/06/25 sinus rhythm replaced afib Airway Mallampati Class: I TM Dist: >3cm Neck ROM: Full Partial: Upper Loose/Missing/Broken Teeth: No Heart: RRR Lungs: CTAB Assessment and Plan Final Anesthetic Review Family History of Problems with Anesthesia: No History of Problems with Anesthesia: No Documented by User: Mina Wang MD 03/12/25 07:20 [facility] Past Medical History Medical History Bilateral hip pain Back pain Hx of concussion COPD (chronic obstructive pulmonary disease) PAF (paroxysmal atrial fibrillation) Paranoid personality disorder Thrombasthenia Psoriatic arthritis Overweight Hyponatremia Hyperlipemia Diverticula of colon Alcohol abuse Anxiety Hypercholesterolemia Hypertension Cognitive capacity: normal Functional capacity: independent ambulation Family History Family History Father Pancreatic cancer Surgical History Surgical History Hx of colonoscopy (~2009) Social History Social History Household Members: None Housing: House Are you a primary child care attendant school to a significant other at home: No Do you presently have visiting nurse or other home services: No Patient Tobacco Use Status: Current someday Tobacco user Tobacco use type: Cigarette Cigarettes Per Day: 10 Smoked in Last 30 Days: Yes e-Cigarette/Vaping Use: Currently Using Use of substances other than those prescribed or required for medical reasons: No Have you been hit, kicked, punched, or otherwise hurt by someone within the past year? If so, by whom?: No Are you DNR?: No Advance Directives: No Advance Directives Information Provided: Yes Advance Directives on File: No Meds Allergies Allergy/AdvReac Type Severity Reaction Status Date / Time No Known Allergies Allergy Verified 02/25/25 14:45 Home Medications ?Medication ?Instructions ?Recorded ?Confirmed ?Last Taken ?Type atorvastatin 10 mg tablet 10 mg PO DAILY 09/18/24 02/23/25 Unknown History cholecalciferol (vitamin D3) 25 25 mcg PO DAILY 09/18/24 02/23/25 Unknown History mcg (1,000 unit) capsule hydroxyzine HCl 25 mg tablet 25 mg PO BID PRN Anxiety 09/18/24 02/23/25 Unknown History tnvbhfxs-alj-urorh 120 mcg-lutein 1 tab PO DAILY 09/18/24 02/23/25 Unknown History 150 mcg-herb 50 mg chewable tablet (Alive Men's 50 Plus Multivitamin) omega 1-hji-bsi-fish oil 1,000 mg 1 cap PO DAILY 09/18/24 02/23/25 Unknown History (120 mg-180 mg) capsule (Fish Oil) albuterol sulfate 90 mcg/actuation 2 puff inhalation Q4-6H PRN 02/23/25 02/23/25 Unknown History aerosol inhaler Shortness Of Breath Or Wheezing apixaban 5 mg tablet (Eliquis) 5 mg PO BID 02/23/25 02/23/25 Unknown History metoprolol tartrate 50 mg tablet 50 mg PO BID 02/23/25 02/23/25 Unknown History risankizumab-rzaa 150 mg/mL 150 mg subcut Q12W 02/23/25 02/23/25 Unknown History subcutaneous pen injector (Skyrizi) umeclidinium 62.5 mcg-vilanterol 1 ea inhalation DAILY 02/23/25 02/23/25 Unknown History 25 mcg/actuation powdr for inhalation (Anoro Ellipta) Exam Exam Date and Time: 03/12/2025 Airway Other: normal Assessment and Plan Final Anesthetic Review NPO: Yes ASA Class: III Final Preanesthetic Review: No Changes in Pt Med Stat, Meds/Allgs Chart Reviewed, Consent Obtained/Reviewed and Anes Risks/Benef Reviewed Patient Risk: Intermediate Procedure Risk: Low Anesthetic Plan Anesthetic Plan: GA Disposition: Standard PACU
[2025-02-23 10:48] LABS: MANUAL DIFF FLAG NO
[2025-02-23 10:54] LABS: Hematocrit 44.1 % (42.0-52.0); Hemoglobin 15.3 g/dl (14.0-18.0); Imm Gran Abs Auto 0.03 X10*3/uL (0.00-0.03); Imm Gran Pct Auto 0.5 % (0.0-0.4); Lymphocytes Absolute Auto 1.2 X10*3/uL (1.2-4.9); Mean Corpuscular HGB Conc 34.7 g/dl (31.0-36.0); Mean Corpuscular Hemoglobin 32.7 pg (27.0-33.0); Mean Corpuscular Volume 94.2 fL (80.0-98.0); NRBC Abs Auto 0.000 X10*3/uL (0.0-0.012); NRBC Pct Auto 0.0 /100WBC (0.0-0.2); Platelet Count 194 X10*3/uL (160-400); Red Blood Count 4.68 X10*6/uL (4.60-5.80); White Blood Count 5.9 X10*3/uL (4.8-10.8)
[2025-02-23 11:57] LABS: Anion Gap 14 (12-20); Blood Urea Nitrogen 14 mg/dL (9-16); Calcium 9.6 mg/dL (8.4-10.2); Carbon Dioxide 26 mmol/L (22-29); Chloride 103 mmol/L (96-108); Creatinine Clr Calc Pharmacy 75.7; Estimated Glomerular Filt Rate > 60; Potassium 4.7 mmol/L (3.3-5.1); Sodium 138 mmol/L (135-145)
[2025-03-12] VITALS (7 sets, daily range): BP systolic 102–126; BP diastolic 40–70; PULSE 55–85; RESP 16; TEMP 36–36.1; O2SAT 93–94
[2025-03-12] MEDS: Lactated Ringers 1,000 ML 100 ML IVCONT (06:54)
--- NOTE | 2025-03-12 07:22 | MHC.SHP ---
Pre-Procedural Eval Section A - 24 Hr Update-Section A only Date of Service: 03/12/25 The patient is an INPATIENT: No Changes since office visit: Yes Patient answered all questions; No Cold of Flu in the past 2 weeks, No New Medical Problems and No Changes in Medication The patient has been examined within 24 hours of the surgical procedure. The History & Physical has been completed within 30 days and I have reviewed it.: No Section B - Complete if H&P > 30 days Chief Complaint: Unilateral inguinal hernia, without obstruction Details of Present Illness: no changes reported Relevant Family History (Specify if Yes): No Relevant Social History: None Present Medications: see Short Stay Collaborative assessment Medical History: No relevant PMH History of Previous Operations: No relevant previous surgery Allergies: Allergies Allergy/AdvReac Type Severity Reaction Status Date / Time No Known Allergies Allergy Verified 02/25/25 14:45 Review of Systems Sugical H&P ROS: Negative: Constitution, Cardiovascular, Respiratory, Neurological, Psychiatric, Hem-Onc, Allergic/Immunologic, Gastrointestinal, Genitourinary, Musculoskeletal and Integumentary Exam Surgical H&P Exam: Normal: HEENT, Normal: Heart, Normal: Lungs, Normal: Extremities, Normal: Abdomen and Normal: Skin Plan Diagnosis/Plan: Unchanged I have reviewed the history and physical and performed a pertinent physical examination on my patient. No changes have occurred unless specified. Time Spent With Patient Time: Total time managing care of this patient today ____ minutes.
--- NOTE | 2025-03-12 07:36 | P.OP_ITS ---
Operative Note Operative Note Date of Service: 03/12/25 Narrative: Preoperative diagnosis: Right Inguinal hernia, reducible Postoperative diagnosis: Same Procedure: Repair of reducible right inguinal hernia with mesh Surgeon: Abdi Ramey MD Oncology Account Specialist: Kaela Borjas PA-C, CORTES Powell Anesthesia: General LMA Indications for procedure: 69-year-old male patient presenting with complaints of pain in the right groin after prolonged episode of coughing. Patient was found to have a lump in the left groin which increases with coughing. On examination the patient has a reducible right inguinal hernia which increases with Valsalva maneuvers. No hernias noted in the left side. Operative findings: Large direct right inguinal hernia Specimen: None Estimated blood loss: 3 mL Complications: None Procedure details: Patient was brought to the OR and placed in a supine position. After administering general anesthesia the patient's abdomen was prepped with ChloraPrep and draped in a sterile fashion. A surgical time-out was called and the consent confirmed. Patient received preoperative antibiotics and Venodyne boots were in place. Local anesthesia consisting of 0.5% Sensorcaine was infiltrated over the right inguinal ligament. Incision was then made in the same location and carried out through subcutaneous tissue, past Jose's fashion up to the external oblique aponeurosis. Additional local was infiltrated below the external oblique aponeurosis. This was incised with a scalpel and widened with the Metzenbaum scissors. The spermatic cord was then dissected free from the surrounding inguinal canal and retracted using a Cumbola drain. A direct hernia was noted in the floor of the inguinal canal. Fibers of the cremaster muscle were and no indirect sac identified. Attention was then directed to the direct defect. This was dissected down to the fascial defect and reduced into the abdominal cavity. A preperitoneal space was then dissected using an open Ray-Bobby sponge. A large extended PHS mesh was then obtained. The circular underlay was deployed within the preperitoneal space in the overlay secured to the pubic tubercle, shelving edge of the inguinal ligament and conjoined tendon using interrupted 0 Polysorb sutures. A slit was made in the mesh in the mesh wrapped around the spermatic cord at the internal ring. This was then secured to the shelving edge using the 0 Polysorb suture. The lateral edge of the mesh was then placed below the external oblique aponeurosis. Wounds were then irrigated with saline solution and suctioned dry. Wounds were checked for hemostasis. The external oblique aponeurosis was then reapproximated using a running 2-0 Polysorb suture. Jose's fascia and dermis were then reapproximated using interrupted 3-0 Polysorb sutures. Skin was closed using a running subcuticular 4-0 Polysorb suture. Steri-Strips, 4 x 4 gauze and Tegaderm were then applied. The patient tolerated the procedure well. Sponge, instrument, and needle counts reported as correct. Patient was transferred to PACU in stable condition.
== END 2025-03-12 09:47 | disposition home or self-care (01) ==
PROVIDERS: Nurse Practitioner; PCP Physician Assistant Medical; Visit Provider Surgery
PROC: (CPT 49505; principal; 2025-03-12 07:30)
DX: K40.90 Unilateral inguinal hernia, without obstruction or gangrene, not specified as recurrent (principal); I10 Essential (primary) hypertension; E78.00 Pure hypercholesterolemia, unspecified; I48.0 Paroxysmal atrial fibrillation; J44.9 Chronic obstructive pulmonary disease, unspecified; E03.8 Other specified hypothyroidism; D75.839 Thrombocytosis, unspecified; Z79.51 Long term (current) use of inhaled steroids; Z79.01 Long term (current) use of anticoagulants; Z79.899 Other long term (current) drug therapy; F10.11 Alcohol abuse, in remission; F19.11 Other psychoactive substance abuse, in remission; F17.210 Nicotine dependence, cigarettes, uncomplicated
CPT/HCPCS: 49505; 36415; 80048; 85025; C1781; C9088; J0690; J1171; J2003; J2704; J2795; J3010

== ENCOUNTER → 2025-03-12 05:49 | Outpatient (BNV) | payer MEDICARE, SELFPAY | PROVIDERS: PCP Physician Assistant Medical; Visit Provider Surgery | DX: K40.90 Unilateral inguinal hernia, without obstruction or gangrene, not specified as recurrent (principal) | CPT/HCPCS: 49505 ==

== ENCOUNTER 2025-03-27 09:48 | Outpatient (AMB) | payer MEDICARE, SELFPAY ==
--- NOTE | 2025-03-27 09:49 | A.OFFVIS_ITS ---
Vital Signs 03/27/25 09:56 Weight 204 lb BP 101/59 L Blood Pressure Location Lt brachial Position Sitting Pulse 92 Intake Visit Reasons: s/p inguinal hernia Intake Note: Patient here s/p repair of reducible right inguinal hernia with mesh. Patient c/o: removed steri strips. Reports incisions healing well. Denies b leeding, inflammation. No longer taking rx pain meds. Surgery: () 03-12-2025 Security Systems Integrator Required: No Accompanied by: Self / Same As Patient Allergies No Known Allergies Allergy (Verified 03/27/25 09:55) HPI HPI s/p inguinal hernia: Details: Overall doing well. States he has been very cautious as to not disrupt the incision site. Denies bleeding from the incision site but has been keeping bandages on it to protect it. Additionally has been using a hernia about to add some extra support to the area. He has been abstaining from heavy lifting. Overall he denies significant pain from the area, rates pain as a 1/10 and does get some discomfort with ambulation. Does notice that there is some lumps beneath the incision and wants to make sure that everything is healing correctly PFSH Medical History (Updated 03/27/25 @ 09:25 by CORDELIA Yu) Right inguinal hernia Bilateral hip pain Back pain Hx of concussion COPD (chronic obstructive pulmonary disease) PAF (paroxysmal atrial fibrillation) Paranoid personality disorder Thrombasthenia Psoriatic arthritis Overweight Hyponatremia Hyperlipemia Diverticula of colon Alcohol abuse Anxiety Hypercholesterolemia Hypertension Surgical History (Updated 03/27/25 @ 10:08 by Lux Lo PA-C) Hx of colonoscopy (~2009) Family History Father Pancreatic cancer Social History Household Members: None Housing: House Are you a primary healthcare administrative assistant to a significant other at home: No Do you presently have visiting nurse or other home services: No 75 years or older and lives alone: No Comment: counts correct Patient Tobacco Use Status: Current someday Tobacco user Tobacco use type: Cigarette Cigarettes Per Day: 10 e-Cigarette/Vaping Use: Currently Using Physical Exam Const General: comfortable and no acute distress Orientation/consciousness: patient oriented x3 GI Other: Incision site clean and dry, Steri-Strips in place. Removed in office. Incision is clean dry and intact. Nontender. There is a deep linear induration following the incision site is likely scar tissue. No edema, no erythema Inspection: No distended Palpation (GI): Soft to palpation and nontender Neuro General: patient oriented x3 Assessment & Plan Assessment & Plan (1) S/P inguinal hernia repair: Comment: Right, 03/12/2025-Dr. Ramey Code(s): Z98.890 - Other specified postprocedural states; Z87.19 - Personal history of other diseases of the digestive system Category: Medical Plan 69-year-old male s/p right inguinal hernia repair with mesh on 03/12/2025 returning to the office for routine follow up. Overall patient doing very well pain is well controlled, currently 07/18, some increased with ambulation. Appetite and bowel function at baseline. He has been continuing to cover the wound with Band-Aids although it has not been draining. Makes him feel more comfortable. Additionally has been continuing to use a hernia belt to add support to the area in his keep postoperative phase. He can continue with this as needed if it makes him more comfortable. He is okay to shower instructed him to not submerge in baths or pools. Can pat dry. On exam the incision appears to be healing very well. I removed the Steri-Strips in office. Incision is clean dry and intact. Nontender to palpation there was some deep induration along the incision which is likely the tissues healing, expect this to resolve with some time however if this is concerning to him he can do warm compresses as needed to help soften this issue. We will continue with activity restrictions no heavy lifting greater than 15-20 lb for 4 more weeks. Patient will return in 3 weeks for follow up, can reach out with any questions or concerns prior. Coding Level of Care Code Global (42257) Diagnoses S/P inguinal hernia repair Z98.890; Z87.19
[2025-03-27 09:56] VITALS: BP 101/59; PULSE 92
--- OUTSIDE RECORDS SUMMARY | 2025-03-27 10:24 | XMS_ITS | Clinical Summary ---
Author Organization [facility] Address [address] [place] [address] Care Team Providers Care Supervisor Benzene Refining Name Role Phone Aminata Linda PA-C Primary Care Provi chrissy Nahid Preciado MD Unavailable [phone] Panchito Mcgrath MD Unavailable Rony Acosta MD Unavailable Allergies Active Allergy Reactions Criticality Noted Date Comments Clobetasol Swelling Medium 12/30/2015 [place] Tar Extract Swelling Medium 12/30/2015 Medications triamcinolone (KENALOG) 0.1 % cream PLEASE SEE ATTACHED FOR DETAILED DIRECTIONS 4 Active betamethasone dipropionate augmented (DIPROLENE-AF) 0.05 % cream Apply topically 2 (two) times a day. Active omega-3 fatty acids (FISH OIL) 1000 MG Cap capsule Take by mouth. Activ e cholecalciferol (CHOLECALCIFEROL) 25 MCG (1000 UT) tablet Take 1 tablet (1,000 Units total) by mouth daily. Active Multiple Vitamin tablet Take 1 tablet by mouth daily. Active hydrOXYzine HCl (ATARAX) 25 MG tabletIndications: Anxiety Take 1 tablet (25 mg total) by mouth 3 (three) times a day. 60 tablet 4 Active risankizumab-rzaa (Skyrizi Pen) 150 mg/mL Solution Auto-injector Inject 1 mL (150 mg total) under the skin. 5 Active atorvastatin (LIPITOR) 10 MG tabletIndications: Other hyperlipidemia TAKE 1 TABLET BY MOUTH EVERY DAY 90 tablet 1 5 Active metoPROLOL TARTRATE (LOPRESSOR) 50 MG tabletIndications: Atrial fibrillation, unspecified type (HCC) Take 1 tablet (50 mg total) by mouth 2 (two) times a day. 180 tablet 1 5 Active apixaban (ELIQUIS) 5 MG tabletIndications: Atrial fibrillation, unspecified type (HCC) Take 1 tablet (5 mg total) by mouth 2 (two) times a day. 180 tablet 3 5 Active umeclidinium-vilan terol (ANORO ELLIPTA) 62.5-25 MCG/ACT inhalerIndications :Chronic obstructive pulmonary disease, unspecified COPD type (HCC) Inhale 1 puff daily. 60 each 5 5 Active albuterol (PROVENTIL HFA; VENTOLIN HFA) 108 (90 Base) MCG/ACT inhalerIndications :Chronic obstructive pulmonary disease, unspecified COPD type (HCC) Inhale 2 puffs every 4 (four) hours as needed for wheezing. 1 each 5 5 Active Active Problems Problem Noted Date Diagnosed Date Personal history of nicotine dependence 01/21/20 25 Chronic obstructive pulmonary disease 12/11/2024 Assessment & Plan (12/11/2024 12:11 PM EDT): Following with pulmonary. Compliant with Trelegy. Has not noticed much change in his breathing. Seeing pulmonary soon. Atrial fibrillation 11/26/2024 Assessment & Plan (12/11/2024 12:11 PM EDT): Patient following with cardiology. Rate control with Lopressor and anticoagulate with Eliquis. The plan eventually is for DC cardioversion. Sleep study was recommended. Referral placed. Orders: Amb referral to Sleep Medicine Shortness of breath 09/08/2024 Psoriatic arthritis 05/20/2024 History of ETOH abuse 05/20/2024 Anxiety 05/20/2024 Thrombocytopenia 11/14/2023 Assessment & Plan (12/11/2024 12:11 PM EDT): Platelet count has returned to normal. Primary hypertension 11/07/2023 Assessment & Plan (12/11/2024 12:11 PM EDT): Blood pressures are controlled. Will continue to follow. Other hyperlipidemia 11/07/2023 Tobacco use 11/07/2023 Overview (11/07/2023): 45- 100+pack yr Assessment & Plan (12/11/2024 12:11 PM EDT): Is up-to-date with his low-dose CAT scan screen. Patient denies tobacco use. He is vaping nicotine and using the patch. Psoriasis 11/07/2023 Resolved Problems Problem Noted Date [...] Encounters Date Type Department Care Team Description 03/18/2025 Scanned Document [facility] [address] [facility] [place] [address] Dermatology, Scan 03/12/2025 Scanned Document [facility] GENERAL SURG SCAN General Surgery, Scan 03/06/2025 Telephone [facility] [address] [place] [phone] Panchito Mcgrath MD 02/26/2025 Scanned Document [facility] [address] [place] [address] Gastroenterolog y, Scan 02/24/2025 Telephone [facility] [address] [facility] [place] [address] Aminata Linda PA-C Referral 02/10/2025 2:15 PM EDT Office Visit [facility] [address] [address] Nahid Preciado MD Primary hypertension (Primary Dx); Paroxysmal atrial fibrillation (HCC); Current use of corrections specialist anticoagulation 02/10/2025 Travel 02/06/2025 2:30 PM EDT Consult [facility] [address] [phone] Nahid Preciado MD Chokshi, Moulin Y, MD Persistent atrial fibrillation (HCC) (Primary Dx); Cardiac arrhythmia, unspecified cardiac arrhythmia type 02/06/2025 Travel 01/20/2025 1:45 PM EDT Office Visit [address] [phone] Panchito Mcgrath MD Chronic obstructive pulmonary disease, unspecified COPD type (HCC) (Primary Dx); Personal history of nicotine dependence 01/20/2025 Travel 01/15/2025 Scanned Document [address] [place] [phone] Panchito Mcgrath MD from Last 3 Months Immunizations Immunization Administration Dates Next Due Influenza, Unspecified 03/13/2024 Pneumococcal Conjugate 20-Valent 05/20/2024 Zoster Vaccine Recombinant (Shingrix) 06/28/2021 ,04/28/2021 Family History Medical History Relation Name Comments Pancreatic cancer Father Other Mother Ischemic coliti s Asthma Sister Relation Name Status Comments Father Mother Sister Alive Social History Tobacco Use Types Packs/Day Years Used Date Smoking Tobacco: Some Days Cigarettes 2.3 41.9 Started: 1974; Last attempted to quit: 05/22/2024 Smokeless Tobacco: Former Tobacco Cessation:Ready to Q uit: No; Counseling Given: Yes Alcohol Use Standard Drinks/Week Comments Not Currently 0 (1 standard drink = 0.6 oz pur e alcohol) [facility] Utilities Answer Date Recorded In the past 12 months has th e electric, gas, oil, or water company threatened to shut off services in your home? No 05/19/2024 Social Connection and Isolation Panel [NHANES] A nswer Date Recorded In a typical week, how many times do you talk on the phone with family, friends, or neighbors? Never 05/19/2024 Frequency of Social Gatherings with Friends and Family Not on file 05/19/2024 Attends Holiness Services Not on file 05/19 Active Member [...] any time in the past 12 m [facility], were you homeless or living in a detention (including now)? 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, 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 Not on file Not on file Last Filed Vital Signs Vital Sign Reading Time Taken Comments Blood Pressure 138/72 02/10/2025 1:38 PM EDT Pulse 65 02/10/2025 1:38 PM EDT Temperature 36.6 C (97.9 F) 01/20/2025 1:47 PM EDT Respiratory Rate 17 12/11/2024 10:47 AM EDT Oxygen Saturation 94% 02/10/2025 1:38 PM EDT Inhaled Oxygen Concentration - - Weight 97.1 kg (214 lb) 02/10/2025 1:38 PM EDT Height 177.8 cm (5' 10 ) 02/10/2025 1:38 PM EDT Body Mass Index 30.71 02/10/2025 1:38 PM EDT Plan of Treatment Upcoming Encounters Date Type Department Care Team (Late st Contact Info) Description 05/13/2025 2:00 PM EST Office Visit [address] [phone] Minal Vazquez, MILK ROUTE SUPERVISOR [address] [address] 05/19/2025 11:20 AM EST Consult [facility] [place] [address] [place] [phone] Aminata Linda PA-C [address] [place] [address] Sally Fisher, MILK ROUTE SUPERVISOR 699 [place] [address] 05/28/2025 10:30 AM EST Office [facility] 100 [facility] [address] [place] [phone] Aminata Linda PA-C [address] [place] [address] 07/13/2025 9:30 AM EST Office Visit [facility] [place] [address] [place] [address] Panchito Mcgrath MD [address] [place] [address] 08/26/2025 10:00 AM EST Office Visit [facility] [place] 7 [facility] [address] [place] [phone] Nahid Preciado MD [address] [place] [phone] Health Maintenance Due Date Last Done Comments Advance Care Planning 1955 Hepatitis C Virus Screening 1956 Quantiferon Gold TB 1966 Physical 1974 DTaP/Tdap/Td Vaccines (1 - Tdap) 11/10/1975 Colonoscopy 2001 RSV Vaccine 60 years and older and Patients (1 - Risk 60-74 years 1-dose series) 2016 Abdominal Aortic Aneurysm (AAA) Screening 2021 Influenza Vaccine 02/06/2025 03/13/2024, , 04/22/2014, Additional history exists COVID-19 Vaccine ( season) 2025 04/03/2023, 04/24/2022, 11/24/2021, Additional history exists Annual Wellness Visit 05/21/2025 05/20/2024 Lung Cancer Screening (LDCT) 09/02/2025 09/02/2024 Zoster (Shingles) Vaccine Completed 06/28/2021, Pneumococcal Vaccines 50+ Completed 05/20/2024 Hepatitis B Vaccines Aged Out No long er eligible based on patient's age to complete this topic Procedures Procedure Name Priority Date/Time Associated Diagnosis Comments ECG 12-LEAD Routine 02/10/2025 2:27 PM EDT Primary hypertension ECG 12-LEAD Routine 02/06/2025 2:02 PM EDT Cardiac arrhythmia, unspecified cardiac arrhythmia type CT CHEST LOW DOSE CANCER ANNUAL SCREENING Routine 09/02/2024 9:26 AM EST Tobacco use from Last 3 Months or Most Recently Relevant to Health Maintenance Results * ECG 12 lead (02/10/2025 2:27 PM EDT) Only the most recent of2 resultswithin the time period is included. Ventricular rate 56 BPM EKG [facility] Atrial rate 56 BPM EKG [facility] P-R interval 166 ms EKG [facility] QRS duration 92 ms EKG [facility] Q-T interval 436 ms EKG [facility] QTC calculation (Bazett) 421 ms EKG [facility] P axis 35 degrees EKG [facility] R axis 34 degrees EKG [facility] T axis 67 degrees EKG [facility] 02/10/2025 2:27 PM EDT Narrative EKG [facility] - 02/10/2025 2:36 PM EDT Sinus bradycardia Small inferior Q waves Borderline ECG When compared with ECG of 06-Feb-2025 14:02, Sinus rhythm has replaced Atrial fibrillation Vent. rate has decreased by 28 bpm Confirmed by MD Preciado Joseph () on 02/10/2025 2:36:14 PM Procedure Note Nahid Preciado MD - 02/10/2025 Sinus bradycardia Small inferior Q waves Borderline ECG When compared with ECG of 06-Feb-2025 14:02, Sinus rhythm has replaced Atrial fibrillation Vent. rate has decreased by 28 bpm Confirmed by MD Preciado Joseph () on 02/10/2025 2:36:14 PM us Naihd Preciado MD ECG ORDERABLES Final Res ult EKG [facility] * CT Chest Low Dose Cancer Annual Screening (09/02/2024 9:26 AM EST) Anatomical Region Laterality Modality Chest Computed Tomogra phy 09/02/2024 9:00 AM EST 09/02/2024 9:00 AM EST Impressions 09/05/2024 3:38 PM EST 1. No evidence of pulmonary malignancy. 2. [...] for CT CHEST LOW DOSE CANCER SCREENING ([id number]) can be placed. Electronically signed by: Nicholas Harding MD 09/05/2024 03:38 PM EST Thank you for referring your patient to us, Nicholas Harding MD [phone] (Electronically Signed - 09/05/2024 15:38) Copy: PATIENT , PANCHITO MCGRATH MD [facility]- [place] [address] [facility] [place] [address] Narrative 09/05/2024 3:38 PM EST EXAMINATION: CT LOW-DOSE SCREENING CHEST WITHOUT CONTRAST CLINICAL INFORMATION: Annual lung cancer screening. Tobacco use. The patient is a current smoker with a 60 pack-year history of smoking. COMPARISON: None available. TECHNIQUE: Multidetector volumetric non-contrast CT imaging of the chest was obtained on a [employer] 660 scanner using low-dose screening CT technique. [...] imaging of the chest was obtainedon a [employer] [place] 660 scanner using low-dose screening CT technique. [...] for CT CHEST LOW DOSE CANCER SCREENING ([id number]) canbe placed. Electronically signed by: Nicholas Harding MD 09/05/2024 03:38 PM EST RPWorkstation: [id number] Thank you for referring your patient to us, Nicholas Harding MD [phone] (Electronically Signed - 09/05/2024 15:38) Copy: PATIENT , PANCHITO MCGRATH MD [facility]- [place] [address] [place], [place] [phone] Aminata Linda PA-C IMG CT ORDERABLES F inal Result from Last 3 Months or Most Recently Relevant to Health Maintenance Insurance [facility] MEDICARE [facility] MEDICARE Care Teams Supervisor Benzene Refining Relationship Specialty Start Date End Date Aminata Linda PA-C [address] [place] [address] PCP - General Internal Medicine 11/07/23 Nahid Preciado MD [address] [place] [address] [place] [address] Primary Artist'S Model Cardiovascular Disease 08/11/24 Panchito Mcgrath MD [address] [place] [address] Pulmonary Disease 09/08/24 Rony Acosta MD [address] [facility] 205 [place] [address] Physician Cardiac Electrophysiology 02/06/25
--- OUTSIDE RECORDS SUMMARY | 2025-03-27 10:24 | XMS_ITS | Encounter Summary ---
Author Organization [facility] Address [address] [place] [address] Care Team Providers Care Marketing Research Intern Name Role Phone Aminata Linda PA-C Primary Care Provi chrissy Nahid Preciado MD Unavailable [phone] Panchito Hurlye MD Unavailable [phone] Rony Acosta MD Unavailable [phone] Encounter Details Date Type Department Care Team (Late st Contact Info) Description 02/26/2025 Scanned Document [facility] [address] [place] [address] Gastroenterology, Scan Social History Tobacco Use Types Packs/Day Years Used Date Smoking Tobacco: Some Days Cigarettes 2.3 41.9 Started: 1974; Last attempted to quit: 05/22/2024 Smokeless Tobacco: Former Alcohol Use Standard Drinks/Week Comments Not Currently 0 (1 standard drink = 0.6 oz pur e alcohol) [facility] Utilities Answer Date Recorded In the past 12 months has [employer] electric, gas, oil, or water company threatened to shut off services in your home? No 05/19/2024 Social Connection and Isolation Panel [NHANES] A nswer Date Recorded In a typical week, how many times do you talk on the phone with family, friends, or neighbors? Never 05/19/2024 Frequency of Social Gatherings with Friends and Family Not on file 05/19/2024 Attends Worship Services Not on file 05/19 Active Member [...] were you homeless or living in a mcc (including now)? 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, 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 Not on file Not on file documented as of this encounter Plan of Treatment Upcoming Encounters Date Type Department Care Team (Late st Contact Info) Description 05/13/2025 2:00 PM EST Office Visit [facility] Electrophysiology- [place] 7[address] [place] [phone] Minal Vazquez, BRIDGE CREW MEMBER 863 [facility] 101 [place] [address] 05/19/2025 11:20 AM EST Consult [facility] Pulmonary [address] [phone] Aminata Linda PA-C 100 [place] [address] Sally Fisher, BRIDGE CREW MEMBER 699 [place] [address] 05/28/2025 10:30 AM EST Office Visit [facility] 100 [facility] 101 [place] [address] Aminata Linda PA-C 100 [place] [address] 07/13/2025 9:30 AM EST Office Visit [facility] Pulmonary [place] 100 [place] [address] Panchito Hurley MD [address] [place] [address] 08/26/2025 10:00 AM EST Office Visit [facility] 7 [facility] 201 [place] [phone] Nahid Preciado MD [address] [place] [address] [place] [address] documented as of this encounter Visit Diagnoses Not on filedocumented in this encounter Care Teams Marketing Research Intern Relationship Specialty Start Date End Date Aminata Linda PA-C [address] [place] [address] PCP - General Internal Medicine 11/07/23 Nahid Preciado MD [address] [place] [address] Primary Entry Level Account Manager Cardiovascular Disease 08/11/24 Panchito Hurley MD [address] [place] [address] Pulmonary Disease 09/08/24 Rony Acosta MD [address] [facility] 205 [place] [address] Physician Cardiac Electrophysiology 02/06/25 documented as of this encounter
--- OUTSIDE RECORDS SUMMARY | 2025-03-27 10:24 | XMS_ITS | Encounter Summary ---
Author Organization [facility] Address [address] [place] [address] Care Team Providers Care Fire Captain Name Role Phone Aminata Linda PA-C Primary Care Provi chrissy Nahid Preciado MD Unavailable [phone] Panchito Hurley MD Unavailable [phone] Rony Acosta MD Unavailable [phone] Encounter Details Date Type Department Care Team (Late st Contact Info) Description 03/12/2025 Scanned Document [facility] GENERAL SURG SCAN General Surgery, Scan Social History Tobacco Use Types Packs/Day Years Used Date Smoking Tobacco: Some Days Cigarettes 2.3 41.9 Started: 1974; Last attempted to quit: 05/22/2024 Smokeless Tobacco: Former Alcohol Use Standard Drinks/Week Comments Not Currently 0 (1 standard drink = 0.6 oz pur e alcohol) [facility] Utilities Answer Date Recorded In the past 12 months has [employer] electric, gas, oil, or water company threatened to shut off services in your home? No 05/19/2024 Social Connection and Isolation Panel [NHANES] A nswer Date Recorded In a typical week, how many times do you talk on the phone with family, friends, or neighbors? Never 05/19/2024 Frequency of Social Gatherings with Friends and Family Not on file 05/19/2024 Attends [facility] [employer] Not on file 05/19 Active Member [...] time in the past 12 m [facility], were you homeless or living in a assisted (including now)? 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 Not on file Not on file documented as of this encounter Plan of Treatment Upcoming Encounters Date Type Department Care Team (Late st Contact Info) Description 05/13/2025 2:00 PM EST Office Visit [address] [phone] Minal Vazquez, GRANITE POLISHER MACHINE 863 [facility] 101 [place] [address] 05/19/2025 11:20 AM EST Consult [facility] Pulmonary [address] [phone] Aminata Linda PA-C 100 [place] [address] Sally Fisher, GRANITE POLISHER MACHINE 699 [place] [address] 05/28/2025 10:30 AM EST Office Visit [address] 101 [place] [phone] Aminata Linda PA-C 100 [place] [address] 07/13/2025 9:30 AM EST Office Visit [facility] Pulmonary [address] [phone] Panchito Hurley MD [address] [address] 08/26/2025 10:00 AM EST Office Visit [facility] Heart & Vascular [place] 7 [facility] 201 [place] [phone] Nahid Preciado MD [address] [place] [address] documented as of this encounter Visit Diagnoses Not on filedocumented in this encounter Care Teams Fire Captain Relationship Specialty Start Date End Date Aminata Linda PA-C [address] [place] [address] PCP - General Internal Medicine 11/07/23 Nahid Preciado MD [address] [place] [address] [place] [address] Primary Scrap Carrier Cardiovascular Disease 08/11/24 Panchito Hurley MD [address] [place] [address] Pulmonary Disease 09/08/24 Rony Acosta MD [address] [facility] 205 [place] [address] Physician Cardiac Electrophysiology 02/06/25 documented as of this encounter
--- OUTSIDE RECORDS SUMMARY | 2025-03-27 10:24 | XMS_ITS | Encounter Summary ---
Author Organization [facility] Address [address] [place] [address] Care Team Providers Care Account Development Executive Name Role Phone Aminata Linda PA-C Primary Care Provi chrissy Nahid Preciado MD Unavailable [phone] Panchito Hurley MD Unavailable [phone] Rony Acosta MD Unavailable [phone] Encounter Details Date Type Department Care Team (Late st Contact Info) Description 09/18/2024 Scanned Document [facility] INTERNAL MED SCAN General Internal Medicine, Scan Social History Tobacco Use Types Packs/Day Years Used Date Smoking Tobacco: Former Cigarettes 2.3 41.9 1 975 - 05/22/2024 Smokeless Tobacco: Former Comments:currently vaping Alcohol Use Standard Drinks/Week Comments Not Currently 0 (1 standard drink = 0.6 oz pur e alcohol) [facility] Utilities Answer Date Recorded In the past 12 months has [email or web address] electric, gas, oil, or water company threatened to shut off services in your home? No 05/19/2024 Social Connection and Isolation Panel [NHANES] A nswer Date Recorded In a typical week, how many times do you talk on the phone with family, friends, or neighbors? Never 05/19/2024 Frequency of Social Gatherings with Friends and Family Not on file 05/19/2024 Attends [employer] Services Not on file 05/19 Active Member [...] any time in the past 12 m [facility], were you homeless or living in a jail (including now)? 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 Not on file Not on file documented as of this encounter Plan of Treatment Upcoming Encounters Date Type Department Care Team (Late st Contact Info) Description 05/13/2025 2:00 PM EST Office Visit [address] [address] Minal Vazquez, HEAD RESIDENT 863 [facility] 101 [place] [address] 05/19/2025 11:20 AM EST Consult [facility] Pulmonary [address] [phone] Aminata Linda PA-C 100 [place] [address] Sally Fisher, HEAD RESIDENT 699 [place] [address] 05/28/2025 10:30 AM EST Office Visit [address] 101 [place] [phone] Aminata Linda PA-C 100 [place] [address] 07/13/2025 9:30 AM EST Office Visit [facility] Pulmonary [address] [phone] Panchito Hurley MD [address] [address] 08/26/2025 10:00 AM EST Office Visit [facility] Heart & Vascular [place] 7 [facility] 201 [place] [phone] Nahid Preciado MD [address] [place] [address] documented as of this encounter Visit Diagnoses Not on filedocumented in this encounter Care Teams Account Development Executive Relationship Specialty Start Date End Date Aminata Linda PA-C [address] [place] [address] PCP - General Internal Medicine 11/07/23 Nahid Preciado MD [address] [place] [address] [place] [address] Primary Footwear Factory Worker Cardiovascular Disease 08/11/24 Panchito Hurley MD [address] [place] [address] Pulmonary Disease 09/08/24 Rony Acosta MD [address] [facility] 205 [place] [address] Physician Cardiac Electrophysiology 02/06/25 documented as of this encounter
--- OUTSIDE RECORDS SUMMARY | 2025-03-27 10:24 | XMS_ITS | Encounter Summary ---
Author Organization [facility] Address [address] [place] [address] Care Team Providers Care Fork Truck Operator Name Role Phone Aminata Linda PA-C Primary Care Provi chrissy Nahid Preciado MD Unavailable [phone] Panchito Hurley MD Unavailable [phone] Rony Acosta MD Unavailable [phone] Encounter Details Date Type Department Care Team (Late st Contact Info) Description 09/29/2024 Scanned Document [facility] PRIMARY CARE SCAN Primary Care, Scan Social History Tobacco Use Types Packs/Day Years Used Date Smoking Tobacco: Former Cigarettes 2.3 41.9 1 975 - 05/22/2024 Smokeless Tobacco: Former Comments:currently vaping Alcohol Use Standard Drinks/Week Comments Not Currently 0 (1 standard drink = 0.6 oz pur e alcohol) [facility] Utilities Answer Date Recorded In the past 12 months has [employer] electric, gas, oil, or water company threatened to shut off services in your home? No 05/19/2024 Social Connection and Isolation Panel [NHANES] A nswer Date Recorded In a typical week, how many times do you talk on the phone with family, friends, or neighbors? 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 [address] [place] [address] 05/19/2025 11:20 AM EST Consult [facility] Pulmonary [address] [phone] Aminata Linda PA-C 100 [place] [address] Sally Fisher, LINSEED OIL TEMPERER 6[address] [place] [address] 05/28/2025 10:30 AM EST Office Visit [facility] 100 [facility] 101 [place] [address] Aminata Linda PA-C 100 [place] [address] 07/13/2025 9:30 AM EST Office Visit [facility] Pulmonary [address] [address] Panchito Hurley MD [address] [address] 08/26/2025 10:00 AM EST Office Visit [facility] Heart & Vascular [place] [address] [facility] [address] [place] [address] Nahid Preciado MD [address] [place] [address] documented as of this encounter Visit Diagnoses Not on filedocumented in this encounter Care Teams Fork Truck Operator Relationship Specialty Start Date End Date Aminata Linda PA-C [address] [place] [address] PCP - General Internal Medicine 11/07/23 Nahid Preciado MD [address] [place] [address] [place] [address] Primary Pile Trimmer Cardiovascular Disease 08/11/24 Panchito Hurley MD [address] [place] [address] Pulmonary Disease 09/08/24 Rony Acosta MD [address] [facility] 205 [place] [address] Physician Cardiac Electrophysiology 02/06/25 documented as of this encounter
--- OUTSIDE RECORDS SUMMARY | 2025-03-27 10:24 | XMS_ITS | Clinical Summary ---
Author Organization [facility] Address [address] [place] [address] Phone Care Team Providers Care Hand Bulldozer Name Role Phone Solange Medina MD Primary Care Provider [phone] Allergies Active Allergy Reactions Criticality Noted Date Comments Clobetasol Propionate Swelling 12/30/2015 [place]ford Tar Swelling 12/30/2015 Medications magnesium oxide 500 [...] 25.0-29.9) 10/07/2021 Anxiety 03/09/2016 Paranoid personality (disorder) ([facility] V24, [facility] V28) 03/06/2016 Overview (07/29/2024): Hospitalized 02/2016 Hyponatremia 02/25/2016 Subclinical hypothyroidism 02/08/2016 Abnormal LFTs (liver function tests) 02/02/2016 Overview (07/29/2024): Associated with alcohol abuse, SGPT 97, SGPT 118, alk phos 144 on 10/28/15 Macrocytic anemia 02/02/2016 Overview (07/29/2024): Associated with alcohol abuse, 10.8/31.6 with MCV of 105.7, vitamin B 12 617 on 10/28/15 Psoriatic arthritis ([facility] V24, [facility] V28) 1 09/03/2012 Overview (07/29/2024): Onset [...] Started at age 29. Humira since ~ 4132-[address]. Sees Dr. Lebron Diamond Tobacco use disorder [...] 06/17/2022 Social Influencers of Health Screening 06/17/2022 Hypertension/CHF/CAD Annual BMP Blood Test 05/22/2024 05/22/2023 Depression Screening 07/09/2024 COVID-19 Vaccine ( season) 2025 10/25/2023, 04/03/2023, 04/24/2022, Additional history exists Influenza Vaccine (#1) 2025 , 04/03/2023, 04/22/2014, [...] AM EST Narrative 09/10/2023 5:00 AM EST [facility] Diagnostic Imaging Department [address] [place] [address] Patient: CLAIREDAVINJACQUIE Chadwick./Age/Sex: 1955 - 67 - M Unit#: [id number] Location/Status: SPDICATL/REG CLI Mnemonic/[facility]ing [facility] Ordering Physician: VIJI HAYDEN MD CT Lung [...] by: MAITE MELGOZA MD Dic Date/Time: 09/10/23 0454 Sign date/Time: 09/10/23 0500 Procedure Note Maite Melgoza MD - 02/25/2024 [facility] Diagnostic Imaging Department [address] [place] [address] Patient: KATHYJACQUIE /Age/Sex: 1955 - 67 - M Unit#: [id number] Location/Status: SPDICATLS/REG CLI Mnemonic/Ordering Site: [facility] Ordering Physician: VIJI HAYDEN MD [...] by: MAITE MELGOZA MD Dic Date/Time: 09/10/23 3914 Sign date/Time: 09/10/23 0507 Viji Hayden MD IMG [address] PROCEDURES Final [...] Maintenance Insurance [employer] MEDICARE ADVANTAGE Care Teams Hand Bulldozer Relationship Specialty Start Date End Date Solange Medina MD [address] [place] [address] PCP - General Internal Medicine 02/14/21
--- OUTSIDE RECORDS SUMMARY | 2025-03-27 10:24 | XMS_ITS | Encounter Summary ---
Author Organization [facility] Address [address] [place] [address] Care Team Providers Care Inspector Subassemblies Name Role Phone Aminata Linda PA-C Primary Care Provi chrissy Nahid Preciado MD Unavailable [phone] Panchito Hurley MD Unavailable [phone] Rony Aocsta MD Unavailable [phone] Encounter Details Date Type Department Care Team (Late st Contact Info) Description 12/05/2024 Scanned Document [facility] Pulmonary [place] [address] [address] Panchito Hurley MD 85 [facility] Hussain [address] [place] [phone] Social History Tobacco Use Types Packs/Day Years Used Date Smoking Tobacco: Former Cigarettes 2.3 41.9 1 975 - 05/22/2024 Smokeless Tobacco: Former Comments:currently vaping Alcohol Use Standard Drinks/Week Comments Not Currently 0 (1 standard drink = 0.6 oz pur e alcohol) [facility] Utilities Answer Date Recorded In the [...] and Family Not on file 05/19/2024 Attends Evangelical Services Not on file 05/19 Active Member [...] any time in the past 12 m [facility], were you homeless or living in a retirement (including now)? 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 Not on file Not on file documented as of this encounter Plan of Treatment Upcoming Encounters Date Type Department Care Team (Late st Contact Info) Description 05/13/2025 2:00 PM EST Office Visit [facility] Electrophysiology- [place] 7[address] [place] [address] Minal Vazquez, JOB CHECKER 863 [facility] [address] [place] [address] 05/19/2025 11:20 AM EST Consult [facility] Pulmonary [place] 100 [place] [address] Aminata Linda PA-C 100 [place] [address] Sally Fisher, JOB CHECKER 699 [place] [address] 05/28/2025 10:30 AM EST Office Visit [facility] 100 [facility] [address] [place] [address] Aminata Linda PA-C 100 [place] [address] 07/13/2025 9:30 AM EST Office Visit [facility] 100 [place] [address] Panchito Hurley MD 85 [facility] 923 [place], [place] [phone] 08/26/2025 10:00 AM EST Office Visit [facility] Heart & Vascular [facility] [address] [address] [place] [address] Nahid Preciado MD [address] [place] [address] documented as of this encounter Visit Diagnoses Not on filedocumented in this encounter Care Teams Inspector Subassemblies Relationship Specialty Start Date End Date Aminata Linda PA-C [address] [place] [address] PCP - General Internal Medicine 11/07/23 Nahid Preciado MD [address] [place] [address] [place] [phone] Primary Physics Teacher Cardiovascular Disease 08/11/24 Panchito Hurley MD [address] [place] [address] Pulmonary Disease 09/08/24 Rony Acosta MD [address] [facility] 205 [place] [address] Physician Cardiac Electrophysiology 02/06/25 documented as of this encounter
--- OUTSIDE RECORDS SUMMARY | 2025-03-27 10:24 | XMS_ITS | Encounter Summary ---
Author Organization [facility] Address [address] [place] [address] Care Team Providers Care Diversified Crops I Farmworker Name Role Phone Aminata Linda PA-C Primary Care Provi chrissy Nahid Preciado MD Unavailable [phone] Panchito Hurley MD Unavailable [phone] Rony Acosta MD Unavailable [phone] Encounter Details Date Type Department Care Team (Late st Contact Info) Description 12/17/2024 Scanned Document [facility] [address] [place] [address] Dermatology, Scan Social History Tobacco Use Types Packs/Day Years Used Date Smoking Tobacco: Former Cigarettes 2.3 41.9 1 975 - 05/22/2024 Smokeless Tobacco: Former Comments:currently vaping Alcohol Use Standard Drinks/Week Comments Not Currently 0 (1 standard drink = 0.6 oz pur e alcohol) [facility] Utilities Answer Date Recorded In the past 12 months has [employer] electric, gas, oil, or water company threatened to shut off services in your home? No 05/19/2024 Social Connection and Isolation Panel [NHANES] A nswer Date Recorded In a typical week, how many times do you talk on the phone with family, friends, or neighbors? Never 05/19/2024 Frequency of Social Gatherings with Friends and Family Not on file 05/19/2024 Attends Buddhist Services Not on file 05/19 Active Member [...] any time in the past 12 m [facility], were you homeless or living in a retirement (including now)? 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 Not on file Not on file documented as of this encounter Plan of Treatment Upcoming Encounters Date Type Department Care Team (Late st Contact Info) Description 05/13/2025 2:00 PM EST Office Visit [facility] Electrophysiology- [place] 7[address] [place] [address] Minal Vazquez, COUNSELOR AID 863 [facility] 101 [place] [address] 05/19/2025 11:20 AM EST Consult [facility] Pulmonary [address] [address] Aminata Linda PA-C 100 [place] [address] Sally Fisher, COUNSELOR AID 699 [place] [address] 05/28/2025 10:30 AM EST Office Visit [facility] 100 [facility] 101 [place] [address] Aminata Linda PA-C 100 [place] [address] 07/13/2025 9:30 AM EST Office Visit [facility] Pulmonary [place] 100 [place] [address] Panchito Hurley MD [address] [place] [address] 08/26/2025 10:00 AM EST Office Visit [facility] Heart & Vascular [facility] 7 [facility] 201 [place] [address] Nahid Preciado MD [address] [place] [address] [place] [address] documented as of this encounter Visit Diagnoses Not on filedocumented in this encounter Care Teams Diversified Crops I Farmworker Relationship Specialty Start Date End Date Aminata Linda PA-C [address] [place] [address] PCP - General Internal Medicine 11/07/23 Nahid Preciado MD [address] [place] [address] Primary Canteen Operator Cardiovascular Disease 08/11/24 Panchito Hurley MD [address] [place] [address] Pulmonary Disease 09/08/24 Rony Acosta MD [address] [address] Physician Cardiac Electrophysiology 02/06/25 documented as of this encounter
--- OUTSIDE RECORDS SUMMARY | 2025-03-27 10:24 | XMS_ITS | Encounter Summary ---
Author Organization [facility] Address [address] [place] [address] Care Team Providers Care Numerical Control Operator Name Role Phone Aminata Linda PA-C Primary Care Provi chrissy Nahid Preciado MD Unavailable [phone] Panchito Hurley MD Unavailable [phone] Rony Acosta MD Unavailable [phone] Encounter Details Date Type Department Care Team (Late st Contact Info) Description 01/15/2025 Scanned Document [facility] Pulmonary [place] [address] [address] Panchito Hurley MD 85 [facility] Hussain [address] [place] [phone] Social History Tobacco Use Types Packs/Day Years Used Date Smoking Tobacco: Former Cigarettes 2.3 41.9 1 975 - 05/22/2024 Smokeless Tobacco: Former Comments:currently vaping Alcohol Use Standard Drinks/Week Comments Not Currently 0 (1 standard drink = 0.6 oz pur e alcohol) [facility] Utilities Answer Date Recorded In the past [...] and Family Not on file 05/19/2024 Attends Caodaism Services Not on file 05/19 Active Member [...] any time in the past 12 m [facility], were you homeless or living in a intermediate (including now)? 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 file Not on file documented as of this encounter Plan of Treatment Upcoming Encounters Date Type Department Care Team (Late st Contact Info) Description 05/13/2025 2:00 PM EST Office Visit [facility] Electrophysiology- [place] 711 [place] [address] Minal Vazquez, WATER TREATMENT PLANT SUPERVISOR 863 [facility] [address] 101 [place] [address] 05/19/2025 11:20 AM EST Consult [facility] Pulmonary [place] 100 [place] [address] Aminata Linda PA-C 100 [place] [address] Sally Fisher, WATER TREATMENT PLANT SUPERVISOR 699 [place] [address] 05/28/2025 10:30 AM EST Office Visit [facility] 100 [facility] [address] [place] [address] Aminata Linda PA-C 100 [place] [address] 07/13/2025 9:30 AM EST Office Visit [facility] 100 [place] [address] Panchito Hurley MD 85 [facility] 923 [place], [place] [address] 08/26/2025 10:00 AM EST Office Visit [facility] Heart & Vascular [facility] [address] [address] [place] [address] Nahid Preciado MD [address] [place] [address] documented as of this encounter Visit Diagnoses Not on filedocumented in this encounter Care Teams Numerical Control Operator Relationship Specialty Start Date End Date Aminata Linda PA-C [address] [place] [address] PCP - General Internal Medicine 11/07/23 Nahid Preciado MD [address] [place] [address] [place] [phone] Primary Commercial Collector Cardiovascular Disease 08/11/24 Panchito Hurley MD [address] [place] [address] Pulmonary Disease 09/08/24 Rony Acosta MD [address] [facility] 205 [place] [address] Physician Cardiac Electrophysiology 02/06/25 documented as of this encounter
--- OUTSIDE RECORDS SUMMARY | 2025-03-27 10:24 | XMS_ITS | Encounter Summary ---
Author Organization [facility] Address [address] [place] [address] Care Team Providers Care Opto Mechanical Technician Name Role Phone Aminata Linda PA-C Primary Care Provi chrissy Nahid Preciado MD Unavailable [phone] Panchito Hurley MD Unavailable [phone] Rony Acosta MD Unavailable [phone] Encounter Details Date Type Department Care Team (Late st Contact Info) Description 11/28/2024 Telephone [facility] Heart & Vascular [place] [address] [address] Nahid Preciado MD [address] [place] [address] Social History Tobacco Use Types Packs/Day Years Used Date Smoking Tobacco: Former Cigarettes 2.3 41.9 1 975 - 05/22/2024 Smokeless Tobacco: Former Comments:currently vaping Alcohol Use Standard Drinks/Week Comments Not Currently 0 (1 standard drink = 0.6 oz pur e alcohol) [facility] Utilities Answer Date Recorded In the past [...] and Family Not on file 05/19/2024 Attends Spiritism Services Not on file 05/19 Active Member [...] any time in the past 12 m [facility], were you homeless or living in a senior living (including now)? 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 [address] [place] [address] 05/19/2025 11:20 AM EST Consult [facility] Pulmonary [place] 100 [place] [address] Aminata Linda PA-C 100 [place] [address] Sally Fisher, PROCESSOR GRAIN 6[address] [place] [address] 05/28/2025 10:30 AM EST Office Visit [facility] 100 [facility] [address] [place] [address] Aminata Linda PA-C 100 [place] [address] 07/13/2025 9:30 AM EST Office Visit [facility] 100 [place] [address] Panchito Hurley MD [address] [facility] 923 [place] [address] 08/26/2025 10:00 AM EST Office Visit [facility] Heart & Vascular [place] [address] [address] [place] [address] Nahid Preciado MD [address] [place] [address] documented as of this encounter Visit Diagnoses Not on filedocumented in this encounter Care Teams Opto Mechanical Technician Relationship Specialty Start Date End Date Aminata Linda PA-C [address] [place] [address] PCP - General Internal Medicine 11/07/23 Nahid Preciado MD [address] [place] [address] Primary Drop Wire Operator Cardiovascular Disease 08/11/24 Panchito Hurley MD [address] [place] [address] Pulmonary Disease 09/08/24 Rony Acosta MD [address] [facility] 205 [place] [address] Physician Cardiac Electrophysiology 02/06/25 documented as of this encounter
--- OUTSIDE RECORDS SUMMARY | 2025-03-27 10:24 | XMS_ITS | Encounter Summary ---
Author Organization [facility] Address [address] [place] [address] Care Team Providers Care Silhouette Artist Name Role Phone Aminata Linda PA-C Primary Care Provi chrissy Nahid Preciado MD Unavailable [phone] Panchito Hurley MD Unavailable [phone] Rony Acosta MD Unavailable [phone] Reason for Visit * Reason Onset Date Comments Referral 02/24/2025 Encounter Details Date Type Department Care Team (Late st Contact Info) Description 02/24/[address] [address] Aminata Linda PA-C 100 [place] [address] Referral Social History Tobacco Use Types Packs/Day Years Used Date Smoking Tobacco: Some Days Cigarettes 2.3 41.9 Started: 1974; Last attempted to quit: 05/22/2024 Smokeless Tobacco: Former Alcohol Use Standard Drinks/Week Comments Not Currently 0 (1 standard drink = 0.6 oz pur e alcohol) [facility] Utilities Answer Date Recorded In the past 12 months has [employer] electric, gas, oil, or water company threatened to shut off services in your home? No 05/19/2024 Social Connection and Isolation Panel [NHANES] A nswer Date Recorded In a typical week, how many times do you talk on the phone with family, friends, or neighbors? Never 05/19/2024 Frequency of Social Gatherings with Friends and Family Not on file 05/19/2024 Attends [employer] Services Not on file 05/19 Active Member [...] time in the past 12 m [facility], were you homeless or living in a penitentiary (including now)? 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 Not on file Not on file documented as of this encounter Miscellaneous Notes * Telephone Encounter - Lizy Gilliland MA - 02/24/2025 2:47 PM EDT Faxed office notes to Kenna THOMPSON [phone] documented in this encounter Plan of Treatment Upcoming Encounters Date Type Department Care Team (Late st Contact Info) Description 05/13/2025 2:00 PM EST Office Visit [facility] 711 [place] [address] Minal Vazquez, NON DESTRUCTIVE EVALUATION TECHNICIAN [address] [address] 05/19/2025 11:20 AM EST Consult [address] [address] Aminata Linda PA-C [address] [place] [address] Sally Fisher, NON DESTRUCTIVE EVALUATION TECHNICIAN 699 [place] [address] 05/28/2025 10:30 AM EST Office Visit [address] [phone] Aminata Linda PA-C [address] [place] [address] 07/13/2025 9:30 AM EST Office Visit [address] [address] Panchito Hurley MD [address] [place] [address] 08/26/2025 10:00 AM EST Office Visit [facility] Heart & Vascular [place] 7 [facility] 201 [place] [address] Nahid Preciado MD 420 [place] [address] documented as of this encounter Visit Diagnoses Not on filedocumented in this encounter Care Teams Silhouette Artist Relationship Specialty Start Date End Date Aminata Linda PA-C [address] [place] [address] PCP - General Internal Medicine 11/07/23 Nahid Preciado MD [address] [place] [address] Primary Front Clerk Cardiovascular Disease 08/11/24 Panchito Hurley MD [address] [address] Pulmonary Disease 09/08/24 Rony Acosta MD [address] [facility] 205 [place] [address] Physician Cardiac Electrophysiology 02/06/25 documented as of this encounter
--- OUTSIDE RECORDS SUMMARY | 2025-03-27 10:24 | XMS_ITS | Encounter Summary ---
Author Organization [facility] Address [address] [place] [address] Care Team Providers Care Computer System Technician Name Role Phone Aminata Linda PA-C Primary Care Provi chrissy Nahid Preciado MD Unavailable [phone] Panchito Hurley MD Unavailable [phone] Rony Acosta MD Unavailable [phone] Encounter Details Date Type Department Care Team (Late st Contact Info) Description 03/18/2025 Scanned Document [facility] [address] [place] [address] Dermatology, Scan Social History Tobacco Use Types Packs/Day Years Used Date Smoking Tobacco: Some Days Cigarettes 2.3 41.9 Started: 1974; Last attempted to quit: 05/22/2024 Smokeless Tobacco: Former Alcohol Use Standard Drinks/Week Comments Not Currently 0 (1 standard drink = 0.6 oz pur e alcohol) [facility] Utilities Answer Date Recorded In the past 12 months has [employer] electric, gas, oil, or water company threatened [...] were you homeless or living in a fpc (including now)? 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 file Not on file documented as of this encounter Plan of Treatment Upcoming Encounters Date Type Department Care Team (Late st Contact Info) Description 05/13/2025 2:00 PM EST Office Visit [facility] Electrophys[facility]- [place] 7[address] [place] [address] Minal Vazquez, RETAIL FIELD REPRESENTATIVE 863 [facility] 101 [place] [address] 05/19/2025 11:20 AM EST Consult [facility] Pulmonary [address] [phone] Aminata Linda PA-C 100 [place] [address] Sally Fisher, RETAIL FIELD REPRESENTATIVE 699 [place] [address] 05/28/2025 10:30 AM EST Office Visit [facility] 100 [facility] [address] [place] [address] Aminata Linda PA-C 100 [place] [address] 07/13/2025 9:30 AM EST Office Visit [address] [phone] Panchito Hurley MD [address] [address] 08/26/2025 10:00 AM EST Office Visit [facility] 7 [facility] 201 [place] [address] Nahid Preciado MD [address] [place] [address] [place] [address] documented as of this encounter Visit Diagnoses Not on filedocumented in this encounter Care Teams Computer System Technician Relationship Specialty Start Date End Date Aminata Linda PA-C [address] [place] [address] PCP - General Internal Medicine 11/07/23 Nahid Preciado MD [address] [place] [address] Primary Electroslag Welding Machine Operator Cardiovascular Disease 08/11/24 Panchito Hurley MD [address] [place] [address] Pulmonary Disease 09/08/24 Rony Acosta MD [address] [place] [address] Physician Cardiac Electrophysiology 02/06/25 documented as of this encounter
== END 2025-03-27 10:03 | disposition home or self-care (01) ==
LOC: HO.HGS 09:48
PROVIDERS: PCP Physician Assistant Medical
DX: Z98.890 Other specified postprocedural states (principal); Z87.19 Personal history of other diseases of the digestive system
CPT/HCPCS: 99024

== ENCOUNTER → 2025-03-27 09:48 | Outpatient (BNVA) | payer MEDICARE, SELFPAY | PROVIDERS: PCP Physician Assistant Medical | DX: Z98.890 Other specified postprocedural states (principal); Z87.19 Personal history of other diseases of the digestive system | CPT/HCPCS: 99212 ==

== ENCOUNTER 2025-04-17 08:47 | Outpatient (AMB) | payer MEDICARE, SELFPAY ==
--- NOTE | 2025-04-17 08:53 | A.OFFVIS_ITS ---
Vital Signs 04/17/25 08:57 Height 5 ft 10 in Weight 204 lb 0.005 oz BMI 29.3 Intake Visit Reasons: 3wk s/p inguinal hernia Intake Note: Patient is seen in office for 3 weeks follow up visit, post right inguinal hernia repair. Pt c/o: no complaints. Land Commissioner Required: No Accompanied by: Self / Same As Patient Allergies No Known Allergies Allergy (Verified 04/17/25 08:56) Medication List - Last Reconciled 04/17/25 by Abdi Ramey MD albuterol sulfate 90 mcg/actuation 2 puffs inhalation Q4-6H PRN apixaban (Eliquis) 5 mg PO BID atorvastatin 10 mg PO DAILY bisacodyl (Dulcolax (bisacodyl)) 20 mg (4 x 5 mg) PO ONCE 1 day cholecalciferol (vitamin D3) 25 mcg PO DAILY hydroxyzine HCl 25 mg PO BID PRN metoprolol tartrate 50 mg PO BID bu-hy-aaaza-lutein-herbal 293 120 mcg-150 mcg -50 mg (Alive Men's 50 Plus Multivitamin) 1 tab PO DAILY omega 7-qxh-rca-fish oil 1,000 (120-180) mg (Fish Oil) 1 cap PO DAILY polyethylene glycol 3350 (Miralax) 238 grams PO ONCE risankizumab-rzaa (Skyrizi) 150 mg subcut Q12W umeclidinium-vilanterol 62.5-25 mcg/actuation (Anoro Ellipta) 1 ea inhalation DAILY HPI Comments Details: 69-year-old male patient returning 1 month following repair of a right inguinal hernia with mesh. He feels well and denies any pain in the right groin. He has been very careful to avoid greater than 10 lb of lifting. He almost forgot that he had surgery in the right groin. [facility] Medical History Right inguinal hernia Bilateral hip pain Back pain Hx of concussion COPD (chronic obstructive pulmonary disease) PAF (paroxysmal atrial fibrillation) Paranoid personality disorder Thrombasthenia Psoriatic arthritis Overweight Hyponatremia Hyperlipemia Diverticula of colon Alcohol abuse Anxiety Hypercholesterolemia Hypertension Surgical History Hx of right inguinal hernia repair (03/12/25) Hx of colonoscopy (~2009) Family History Father Pancreatic cancer Social History Household Members: None Housing: House Are you a primary live in caregiver to a significant other at home: No Do you presently have visiting nurse or other home services: No 75 years or older and lives alone: No Comment: counts correct Patient Tobacco Use Status: Current someday Tobacco user Tobacco use type: Cigarette Cigarettes Per Day: 10 e-Cigarette/Vaping Use: Currently Using Physical Exam Vital Signs: BMI result Body Mass Index 29.3 Const General: no acute distress Nutritional Appearance: well nourished Orientation/consciousness: patient oriented x3 Resp Effort & Inspection: normal respiratory effort GI Other: Right inguinal incision is clean, dry, and intact. No hernia noted with Valsalva maneuvers. Neuro General: patient oriented x3 Assessment & Plan Assessment & Plan (1) S/P inguinal hernia repair: Comment: Right, 03/12/2025-Dr. Ramey Code(s): Z98.890 - Other specified postprocedural states; Z87.19 - Personal history of other diseases of the digestive system Category: Surgical Plan 69-year-old male patient returning 1 month following repair of a right inguinal hernia with mesh. He tolerated the procedure well in his wounds are healing nicely. He may resume normal activity without restrictions and should follow up as needed. Coding Level of Care Code Global (72421) Diagnoses S/P inguinal hernia repair Z98.890; Z87.19
[2025-04-17 08:57] VITALS: BMI 29.3
--- OUTSIDE RECORDS SUMMARY | 2025-04-17 09:06 | XMS_ITS | Encounter Summary ---
Author Organization [facility] Address [address] [place] [address] Care Team Providers Care Head Host/Hostess Name Role Phone Aminata Linda PA-C Primary Care Provi chrissy Nahid Preciado MD Unavailable [phone] Panchito Hurley MD Unavailable [phone] Rony Acosta MD Unavailable [phone] Reason for Visit * Reason Onset Date Comments Referral 02/24/2025 Encounter Details Date Type Department Care Team (Late st Contact Info) Description 02/24/[address] [address] Aminata Linda PA-C [address] [place] [address] Referral Social History Tobacco Use Types Packs/Day Years Used Date Smoking Tobacco: Some Days Cigarettes 2.3 41.9 Started: 1974; Last attempted to quit: 05/22/2024 Smokeless Tobacco: Former Alcohol Use Standard Drinks/Week Comments Not Currently 0 (1 standard drink = 0.6 oz pur e alcohol) [facility] Utilities Answer Date Recorded In the past 12 months has [employer] electric, gas, oil, or water company threatened [...] 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, 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 Not on file Not on file documented as of this encounter Miscellaneous Notes * Telephone Encounter - Lizy Gilliland MA - 02/24/2025 2:47 PM EDT Faxed office notes to Kenna THOMPSON [phone] documented in this encounter Plan of Treatment Upcoming Encounters Date Type Department Care Team (Late st Contact Info) Description 05/13/2025 2:00 PM EST Office Visit [facility] 711 [place] [address] Minal Vazquez, FINISHING AREA OPERATOR [address] [address] 05/19/2025 11:20 AM EST Consult [facility]monary [address] [phone] Aminata Linda PA-C [address] [place] [address] Sally Fisher, FINISHING AREA OPERATOR 699 [place] [address] 07/13/2025 9:30 AM EST Office Visit [facility] [address] [address] Panchito Hurley MD [address] [place] [address] 08/18/2025 10:30 AM EST Office Visit [address] [phone] Aminata Linda PA-C [address] [place] [address] 08/26/2025 10:00 AM EST Office Visit [facility] Heart & Vascular [place] [facility] 201 [place] [address] Nahid Preciado MD 420 [place] [address] documented as of this encounter Visit Diagnoses Not on filedocumented in this encounter Care Teams Head Host/Hostess Relationship Specialty Start Date End Date Aminata Linda PA-C [address] [place] [address] PCP - General Internal Medicine 11/07/23 Nahid Preciado MD [address] [place] [address] Primary Mainstreaming Facilitator Cardiovascular Disease 08/11/24 Panchito Hurley MD [address] [place] [address] Pulmonary Disease 09/08/24 Rony Acosta MD [address] [facility] 205 [place] [address] Physician Cardiac Electrophysiology 02/06/25 documented as of this encounter
--- OUTSIDE RECORDS SUMMARY | 2025-04-17 09:06 | XMS_ITS | Encounter Summary ---
Author Organization [facility] Address [address] [place] [address] Care Team Providers Care Production Clerks Supervisor Name Role Phone Aminata Linda PA-C Primary Care Provi chrissy Nahid Preciado MD Unavailable [phone] Pnachito Hurley MD Unavailable [phone] Rony Acosta MD Unavailable [phone] Encounter Details Date Type Department Care Team (Late st Contact Info) Description 09/29/2024 Scanned Document [facility] PRIMARY CARE SCAN Primary Care, Scan Social History Tobacco Use Types Packs/Day Years Used Date Smoking Tobacco: Former Cigarettes 2.3 41.9 1 975 - 05/22/2024 Smokeless Tobacco: Former Comments:currently vaping Alcohol Use Standard Drinks/Week Comments Not Currently 0 (1 standard drink = 0.6 oz pur e alcohol) [facility] Utilities Answer Date Recorded In the past 12 months has [employer] electric, gas, oil, or water company threatened [...] any time in the past 12 m [facility], were you homeless or living in a fdc (including now)? 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 Not on file Not on file documented as of this encounter Plan of Treatment Upcoming Encounters Date Type Department Care Team (Late st Contact Info) Description 05/13/2025 2:00 PM EST Office Visit [address] [address] Minal Vazquez, VOICE NETWORK ENGINEER 863 [facility] [place] 101 [place] [address] 05/19/2025 11:20 AM EST Consult [facility] Pulmonary [address] [phone] Aminata Linda PA-C 100 [place] [address] Sally Fisher, VOICE NETWORK ENGINEER 699 [place] [address] 07/13/2025 9:30 AM EST Office Visit [address] [phone] Panchito Hurley MD [address] [address] 08/18/2025 10:30 AM EST Office Visit [facility] 100 [facility] [address] [place] [address] Aminata Linda PA-C 100 [place] [address] 08/26/2025 10:00 AM EST Office Visit [facility] Heart & Vascular [place] [address] [facility] [address] [place] [address] [place] [phone] Nahid Preciado MD [address] [place] [address] [place] [address] documented as of this encounter Visit Diagnoses Not on filedocumented in this encounter Care Teams Production Clerks Supervisor Relationship Specialty Start Date End Date Aminata Linda PA-C [address] [place] [address] PCP - General Internal Medicine 11/07/23 Nahid Preciado MD [address] [place] [address] [place] [address] Primary District Representative Cardiovascular Disease 08/11/24 Panchito Hurley MD [address] [place] [address] Pulmonary Disease 09/08/24 Rony Acosta MD [address] [facility] 205 [place] [address] Physician Cardiac Electrophysiology 02/06/25 documented as of this encounter
--- OUTSIDE RECORDS SUMMARY | 2025-04-17 09:06 | XMS_ITS | Encounter Summary ---
Author Organization [facility] Address 100 [place] [address] Care Team Providers Care Senior Network Engineer Name Role Phone Aminata Linda PA-C Primary Care Provi chrissy Nahid Preciado MD Unavailable [phone] Panchito Hurley MD Unavailable [phone] Rony Acosta MD Unavailable [phone] Encounter Details Date Type Department Care Team (Late st Contact Info) Description 02/26/2025 Scanned Document [facility] 12[address] [place] [address] Gastroenterology, Scan Social History Tobacco Use Types Packs/Day Years Used Date Smoking Tobacco: Some Days Cigarettes 2.3 41.9 Started: 1974; Last attempted to quit: 05/22/2024 Smokeless Tobacco: Former Alcohol Use Standard Drinks/Week Comments Not Currently 0 (1 standard drink = 0.6 oz pur e alcohol) [facility] Utilities Answer Date Recorded In the past 12 months has [employer] electric, gas, oil, or water company threatened to shut off services in your home? No 05/19/2024 Social Connection and Isolation Panel [NHANES] A nswer Date Recorded In a typical week, how many times do you talk on the phone with family, friends, or neighbors? Never 05/19/2024 Frequency of Social Gatherings with Friends and Family Not on file 05/19/2024 Attends Shinto Services Not on file 05/19 Active Member [...] time in the past [address] [facility], were you homeless or living in a long-term (including now)? 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 Not on file Not on file documented as of this encounter Plan of Treatment Upcoming Encounters Date Type Department Care Team (Late st Contact Info) Description 05/13/2025 2:00 PM EST Office Visit [facility] Electrophysiology- [place] 711 [place] [phone] Minal Vazquez, STUCCO APPLICATOR 863 [facility] 101 [place] [address] 05/19/2025 11:20 AM EST Consult [facility] Pulmonary [address] [phone] Aminata Linda PA-C 100 [place] [address] Sally Fisher, STUCCO APPLICATOR 699 [place] [address] 07/13/2025 9:30 AM EST Office Visit [facility] 100 [place] [address] Panchito Hurley MD [address] [address] 08/18/2025 10:30 AM EST Office Visit [facility] 100 [facility] 101 [place] [address] Aminata Linda PA-C 100 [place] [address] 08/26/2025 10:00 AM EST Office Visit [facility] Heart & Vascular [facility] 7 [facility] 201 [place] [phone] Nahid Preciado MD [address] [place] [address] [place] [address] documented as of this encounter Visit Diagnoses Not on filedocumented in this encounter Care Teams Senior Network Engineer Relationship Specialty Start Date End Date Aminata Linda PA-C [address] [place] [address] PCP - General Internal Medicine 11/07/23 Nahid Preciado MD [address] [place] [address] Primary Corporate Webmaster Cardiovascular Disease 08/11/24 Panchito Hurley MD [address] [place] [address] Pulmonary Disease 09/08/24 Rony Acosta MD [address] [facility] 205 [place] [address] Physician Cardiac Electrophysiology 02/06/25 documented as of this encounter
--- OUTSIDE RECORDS SUMMARY | 2025-04-17 09:06 | XMS_ITS | Encounter Summary ---
Author Organization [facility] Address [address] [place] [address] Care Team Providers Care Electrician Assistant Name Role Phone Aminata Linda PA-C Primary Care Provi chrissy Nahid Preciado MD Unavailable [phone] Panchito Hurley MD Unavailable Rony Acosta MD Unavailable [phone] Encounter Details Date Type Department Care Team (Late st Contact Info) Description 11/28/2024 Telephone [facility] Heart & Vascular [place] [address] [address] Nahid Preciado MD [address] [place] [address] Social History Tobacco Use Types Packs/Day Years Used Date Smoking Tobacco: Former Cigarettes 2.3 41.9 1 975 - 05/22/2024 Smokeless Tobacco: Former Comments:currently vaping Alcohol Use Standard Drinks/Week Comments Not Currently 0 (1 standard drink = 0.6 oz pur e alcohol) [facility] Utilities Answer Date Recorded In the past [...] and Family Not on file 05/19/2024 Attends Religion Services Not on file 05/19 Active Member [...] any time in the past 12 m [facility], were you homeless or living in a jail (including now)? 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 Not on file Not on file documented as of this encounter Plan of Treatment Upcoming Encounters Date Type Department Care Team (Late st Contact Info) Description 05/13/2025 2:00 PM EST Office Visit [facility] Electrophysiology- [place] 711 [place] [address] Minal Vazquez, METAL BONDER 863 [facility] 101 [place] [address] 05/19/2025 11:20 AM EST Consult [facility] Pulmonary [address] [phone] Aminata Linda PA-C 100 [place] [address] Sally Fisher, METAL BONDER 699 [place] [address] 07/13/2025 9:30 AM EST Office Visit [facility] Pulmonary [place] 100 [place] [address] Panchito Hurley MD [address] [address] 08/18/2025 10:30 AM EST [facility] 100 [facility] 101 [place] [address] Aminata Linda PA-C 100 [place] [address] 08/26/2025 10:00 AM EST Office Visit [facility] Heart & Vascular [place] [address] [facility] 201 [place] [address] Nahid Preciado MD [address] [place] [address] documented as of this encounter Visit Diagnoses Not on filedocumented in this encounter Care Teams Electrician Assistant Relationship Specialty Start Date End Date Aminata Linda PA-C [address] [place] [address] PCP - General Internal Medicine 11/07/23 Nahid Preciado MD [address] [place] [address] Primary Cut Off Sawyer Log Cardiovascular Disease 08/11/24 Panchito Hurley MD [address] [place] [address] Pulmonary Disease 09/08/24 Rony Acosta MD [address] [facility] 205 [place] [address] Physician Cardiac Electrophysiology 02/06/25 documented as of this encounter
--- OUTSIDE RECORDS SUMMARY | 2025-04-17 09:06 | XMS_ITS | Encounter Summary ---
Author Organization [facility] Address [address] [place] [address] Care Team Providers Care Emergency Vehicle Dispatcher Name Role Phone Aminata Linda PA-C Primary Care Provi chrissy Nahdi Preciado MD Unavailable [phone] Panchito Hurley MD Unavailable [phone] Rony Acosta MD Unavailable [phone] Encounter Details Date Type Department Care Team (Late st Contact Info) Description 01/15/[address] [facility] Pulmonary [place] [address] [address] Panchito Hurley MD 85 [facility] Hussain [address] [place] [phone] Social History Tobacco Use Types Packs/Day Years Used Date Smoking Tobacco: Former Cigarettes 2.3 41.9 1 975 - 05/22/2024 Smokeless Tobacco: Former Comments:currently vaping Alcohol Use Standard Drinks/Week Comments Not Currently 0 (1 standard drink = 0.6 oz pur e alcohol) [facility] Utilities Answer Date Recorded In [...] and Family Not on file 05/19/2024 Attends Restorationism Services Not on file 05/19 Active Member [...] any time in the past 12 m [facility], were you homeless or living in a care home (including now)? 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 Pulmonary [address] [phone] Aminata Linda PA-C 100 [place] [address] Sally Fisher, NEEDLE LOOM OPERATOR HELPER 699 [place] [address] 07/13/2025 9:30 AM EST Office Visit [facility] Pulmonary [address] [address] Panchito Hurley MD [address] [address] 08/18/2025 10:30 AM EST Office Visit [facility] 100 [facility] [address] [place] [address] Aminata Linda PA-C 100 [place] [address] 08/26/2025 10:00 AM EST Office Visit [facility] Heart & Vascular [place] [address] [place] 201 [place] [address] Nahid Preciado MD [address] [place] [address] documented as of this encounter Visit Diagnoses Not on filedocumented in this encounter Care Teams Emergency Vehicle Dispatcher Relationship Specialty Start Date End Date Aminata Linda PA-C [address] [place] [address] PCP - General Internal Medicine 11/07/23 Nahid Preciado MD [address] [place] [address] [place] [phone] Primary Diesel Pile Hammer Operator Cardiovascular Disease 08/11/24 Panchito Hurley MD [address] [place] [address] Pulmonary Disease 09/08/24 Rony Acosta MD [address] [facility] 205 [place] [address] Physician Cardiac Electrophysiology 02/06/25 documented as of this encounter
--- OUTSIDE RECORDS SUMMARY | 2025-04-17 09:06 | XMS_ITS | Clinical Summary ---
Author Organization [facility] Address [address] [place] [address] Care Team Providers Care Rejogger Name Role Phone Aminata Linda PA-C Primary Care Provi chrissy Nahid Preciado MD Unavailable [phone] Panchito Mcgrath MD Unavailable Rony Acosta MD Unavailable Allergies Active Allergy Reactions Criticality Noted Date Comments Clobetasol Swelling Medium 12/30/2015 [place] Tar Extract Swelling Medium 12/30/2015 Medications triamcinolone [...] Encounters Date Type Department Care Team Description 04/03/2025 Scanned Document [facility] GENERAL SURG SCAN General Surgery, Scan 03/18/[address] [facility] [address] [place] [address] Dermatology, Scan 03/12/2025 Scanned Document [facility] GENERAL SURG SCAN General Surgery, Scan 03/06/[address] [facility] Pulmonary [place] [address] [place] [phone] Panchito Mcgrath MD 02/26/2025 Scanned Document [facility] [address] [place] [address] Gastroenterolog y, Scan 02/24/[address] [facility] [address] [place] [address] Aminata Linda PA-C Referral 02/10/2025 2:15 PM EDT Office Visit [facility] [address] [address] Nahid Preciado MD Primary hypertension (Primary Dx); Paroxysmal atrial fibrillation (HCC); Current use of ocean transportation intermediary anticoagulation 02/10/2025 Travel 02/06/2025 2:30 PM EDT Consult [facility] [address] [phone] Nahid Preciado MD Chokshi, Moulin Y, MD Persistent atrial fibrillation (HCC) (Primary Dx); Cardiac arrhythmia, unspecified cardiac arrhythmia type 02/06/2025 Travel 01/20/2025 1:45 PM EDT Office Visit [facility] [address] [place] [phone] Panchito Mcgrath MD Chronic obstructive pulmonary disease, unspecified COPD type (HCC) (Primary Dx); Personal history of nicotine dependence 01/20/2025 Travel 01/15/2025 Scanned Document [facility] [address] [facility] [address] [place] [address] Panchito Mcgrath MD from Last 3 Months [...] = 0.6 oz pur e alcohol) [facility] Utilities Answer Date Recorded In the [...] and Family Not on file 05/19/2024 Attends Congregation Services Not on file 05/19 Active Member [...] any time in the past 12 m [facility], were you homeless or living in a snf (including now)? 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 Pulmonary [employer] [address] [place] [phone] Aminata Linda PA-C 100 [place] [address] Sally Fisher, PROGRAMMER BUSINESS 699 [place] [address] 07/13/2025 9:30 AM EST Office Visit [facility] [address] [place] [phone] Panchito Mcgrath MD [address] [place] [address] 08/18/2025 10:30 AM EST Office Visit [facility] 100 [facility] [address] [place] [phone] Aminata Linda PA-C 100 [place] [address] 08/26/2025 10:00 AM EST Office Visit [facility] Heart & Vascular [place] [employer] 7 [facility] [address] [place] [address] Nahid Preciado MD [address] [place] [address] [place] [address] Health Maintenance Due Date Last Done Comments [...] is included. Ventricular rate 56 BPM EKG [facility] Atrial rate 56 BPM EKG [facility] P-R interval 166 ms EKG [facility] QRS duration 92 ms EKG [facility] Q-T interval 436 ms EKG [facility] QTC calculation (Bazett) 421 ms EKG [facility] P axis 35 degrees EKG [facility] R axis 34 degrees EKG [facility] T axis 67 degrees EKG [facility] 02/10/2025 2:27 PM EDT Narrative EKG [facility] - 02/10/2025 2:36 PM EDT Sinus [...] MD ECG ORDERABLES Final Res ult EKG [facility] * CT Chest Low Dose Cancer [...] for CT CHEST LOW DOSE CANCER SCREENING ([id number]) can be placed. Electronically signed by: Nicholas Harding MD 09/05/2024 03:38 PM EST Thank you for referring your patient to us, Nicholas Harding MD [phone] (Electronically Signed - 09/05/2024 15:38) Copy: PATIENT , PANCHITO MCGRATH MD [facility] [place] [address] [place] [address] Narrative 09/05/2024 3:38 PM EST EXAMINATION: CT LOW-DOSE SCREENING CHEST WITHOUT CONTRAST CLINICAL INFORMATION: Annual lung cancer screening. Tobacco use. The patient is a current smoker with a 60 pack-year history of smoking. COMPARISON: None available. TECHNIQUE: Multidetector volumetric non-contrast CT imaging of the chest was obtained on a Farfetch Sasakwa 660 scanner using low-dose screening CT technique. [...] imaging of the chest was obtainedon a Farfetch Sasakwa 660 scanner using low-dose screening CT technique. [...] for CT CHEST LOW DOSE CANCER SCREENING ([id number]) canbe placed. Electronically signed by: Nicholas Harding MD 09/05/2024 03:38 PM EST RPWorkstation: [id number] Thank you for referring your patient to us, Nicholas Harding MD [phone] (Electronically Signed - 09/05/2024 15:38) Copy: PATIENT , PANCHITO MCGRATH MD [facility] [place] [address] [place] [address] Aminata Linda PA-C IMG CT ORDERABLES F inal Result from Last 3 Months or Most Recently Relevant to Health Maintenance Insurance AETNA MGD MEDICARE AETNA MGD MEDICARE Care Teams Rejogger Relationship Specialty Start Date End Date Aminata Linda PA-C [address] [place] [address] PCP - General Internal Medicine 11/07/23 Nahid Preciado MD [address] [place] [address] [place] [address] Primary Paper Finisher Cardiovascular Disease 08/11/24 Panchito Mcgrath MD [address] [place] [address] Pulmonary Disease 09/08/24 Rony Acosta MD [address] [facility] 205 [place] [address] Physician Cardiac Electrophysiology 02/06/25
--- OUTSIDE RECORDS SUMMARY | 2025-04-17 09:06 | XMS_ITS | Encounter Summary ---
Author Organization [facility] Address [address] [place] [address] Care Team Providers Care Electromyographic Technician Name Role Phone Aminata Linda PA-C Primary Care Provi chrissy Nahid Preciado MD Unavailable [phone] Panchito [place] MD Unavailable [phone] Rony Acosta MD Unavailable [phone] Encounter Details Date Type Department Care Team (Late st Contact Info) Description 12/17/2024 Scanned Document [facility] [address] [place] [address] Dermatology, Scan Social History Tobacco Use Types Packs/Day Years Used Date Smoking Tobacco: Former Cigarettes 2.3 41.9 1 975 - 05/22/2024 Smokeless Tobacco: Former Comments:currently vaping Alcohol Use Standard Drinks/Week Comments Not Currently 0 (1 standard drink = 0.6 oz pur e alcohol) [facility] Utilities Answer Date Recorded In the past 12 months has [employer] electric, gas, oil, or water company threatened to shut off services in your home? No 05/19/2024 Social Connection and Isolation Panel [NHANES] A nswer Date Recorded In a typical week, how many times do you talk on the phone with family, friends, or neighbors? Never 05/19/2024 Frequency of Social Gatherings with Friends and Family Not on file 05/19/2024 Attends Adventist Services Not on file 05/19 Active Member [...] any time in the past 12 m [facility], were you homeless or living in a residential (including now)? 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 Not on file Not on file documented as of this encounter Plan of Treatment Upcoming Encounters Date Type Department Care Team (Late st Contact Info) Description 05/13/2025 2:00 PM EST Office Visit [facility] Electrophysiology- [place] 7[address] [place] [address] Minal Vazquez, MARKET REPORTER 863 [facility] 101 [place] [address] 05/19/2025 11:20 AM EST Consult [facility]monary [address] [phone] Aminata Linda PA-C 100 [place] [address] Sally Fisher, MARKET REPORTER 699 [place] [address] 07/13/2025 9:30 AM EST Office Visit [address] [address] Panchito [place] MD [address] [address] 08/18/2025 10:30 AM EST Office Visit [facility] 100 [facility] [address] [place] [phone] Aminata Linda PA-C 100 [place] [id number] 08/26/2025 10:00 AM EST Office Visit [facility] Heart & Vascular [place] 7 [facility] 201 [place] [address] Nahid Preciado MD [address] [place] [address] [place] [address] documented as of this encounter Visit Diagnoses Not on filedocumented in this encounter Care Teams Electromyographic Technician Relationship Specialty Start Date End Date Aminata Linda PA-C [address] [place] [address] PCP - General Internal Medicine 11/07/23 Nahid Preciado MD [address] [place] [address] Primary Print Shop Chief Clerk Cardiovascular Disease 08/11/24 Panchito [place] MD [address] [place] [address] Pulmonary Disease 09/08/24 Rony Acosta MD [address] [address] Physician Cardiac Electrophysiology 02/06/25 documented as of this encounter
--- OUTSIDE RECORDS SUMMARY | 2025-04-17 09:06 | XMS_ITS | Encounter Summary ---
Author Organization [facility] Address [address] [place] [address] Care Team Providers Care Drop Wire Hanger Name Role Phone Aminata Linda PA-C Primary Care Provi chrissy Nahid Preciado MD Unavailable [phone] Panchito [place] MD Unavailable [phone] Rony Acosta MD Unavailable [phone] Encounter Details Date Type Department Care Team (Late st Contact Info) Description 12/05/[address] [facility] Pulmonary [place] [address] [address] Panchito [place] MD 85 [facility] [place] [address] [place] [id number] Social History Tobacco Use Types Packs/Day Years Used Date Smoking Tobacco: Former Cigarettes 2.3 41.9 1 975 - 05/22/2024 Smokeless Tobacco: Former Comments:currently vaping Alcohol Use Standard Drinks/Week Comments Not Currently 0 (1 standard drink = 0.6 oz pur e alcohol) [facility] Utilities Answer Date Recorded In [...] and Family Not on file 05/19/2024 Attends Jainism Services Not on file 05/19 Active Member [...] any time in the past 12 m [facility], were you homeless or living in a halfway (including now)? 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 Pulmonary [address] [phone] Aminata Linda PA-C 100 [place] [address] Sally Fisher, KRAFT DIGESTER OPERATOR 699 [place] [address] 07/13/2025 9:30 AM EST Office [facility] Pulmonary [address] [address] Panchito [place] MD [address] [address] 08/18/2025 10:30 AM EST Office Visit [facility] 100 [facility] [address] [place] [address] Aminata Linda PA-C 100 [place] [address] 08/26/2025 10:00 AM EST Office Visit [facility] Heart & Vascular [place] [address] [place] [address] [place] [address] Nahid Preciado MD [address] [place] [address] documented as of this encounter Visit Diagnoses Not on filedocumented in this encounter Care Teams Drop Wire Hanger Relationship Specialty Start Date End Date Aminata Linda PA-C [address] [place] [address] PCP - General Internal Medicine 11/07/23 Nahid Preciado MD [address] [place] [address] [place] [phone] Primary Heat Sealing Machine Operator Cardiovascular Disease 08/11/24 Panchito [place] MD [address] [place] [address] Pulmonary Disease 09/08/24 Rony Acosta MD [address] [facility] 205 [place] [address] Physician Cardiac Electrophysiology 02/06/25 documented as of this encounter
--- OUTSIDE RECORDS SUMMARY | 2025-04-17 09:06 | XMS_ITS | Encounter Summary ---
Author Organization [facility] Address [address] [place] [address] Care Team Providers Care Chemical Engineering Teacher Name Role Phone Aminata Linda PA-C Primary Care Provi chrissy Nahid Preciado MD Unavailable [phone] Panchito [place] MD Unavailable [phone] Rony Acosta MD Unavailable [phone] Encounter Details Date Type Department Care Team (Late st Contact Info) Description 03/12/2025 Scanned Document [facility] GENERAL SURG SCAN General Surgery, Scan Social History Tobacco Use Types Packs/Day Years Used Date Smoking Tobacco: Some Days Cigarettes 2.3 41.9 Started: 1974; Last attempted to quit: 05/22/2024 Smokeless Tobacco: Former Alcohol Use Standard Drinks/Week Comments Not Currently 0 (1 standard drink = 0.6 oz pur e alcohol) [facility] Utilities Answer Date Recorded In the past 12 months has [employer] electric, gas, oil, or water company threatened to shut off services in your home? No 05/19/2024 Social Connection and Isolation Panel [NHANES] A nswer Date Recorded In a typical week, how many times do you talk on the phone with family, friends, or neighbors? 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 Not on file Not on file documented as of this encounter Plan of Treatment Upcoming Encounters Date Type Department Care Team (Late st Contact Info) Description 05/13/2025 2:00 PM EST Office Visit [address] [address] Minal Vazquez, STEMHOLE BORER 863 [facility] [place] [address] [place] [address] 05/19/2025 11:20 AM EST Consult [facility] Pulmonary [address] [phone] Aminata Linda PA-C 100 [place] [address] Sally Fisher, STEMHOLE BORER 699 [place] [address] 07/13/2025 9:30 AM EST Office Visit [address] [phone] Panchito [place] MD [address] [address] 08/18/2025 10:30 AM EST Office Visit [facility] 100 [facility] [address] [place] [address] Aminata Linda PA-C 100 [place] [address] 08/26/2025 10:00 AM EST Office Visit [facility] Heart & Vascular [place] 7 [facility] [address] [address] [place] [phone] Nahid Preciado MD [address] [place] [address] documented as of this encounter Visit Diagnoses Not on filedocumented in this encounter Care Teams Chemical Engineering Teacher Relationship Specialty Start Date End Date Aminata Linda PA-C [address] [place] [address] PCP - General Internal Medicine 11/07/23 Nahid Preciado MD [address] [place] [address] [place] [address] Primary Teacher Cardiovascular Disease 08/11/24 Panchito [place] MD [address] [place] [address] Pulmonary Disease 09/08/24 Rony Acosta MD [address] [facility] 205 [place] [address] Physician Cardiac Electrophysiology 02/06/25 documented as of this encounter
--- OUTSIDE RECORDS SUMMARY | 2025-04-17 09:06 | XMS_ITS | Encounter Summary ---
Author Organization [facility] Address [address] [place] [address] Care Team Providers Care Diamond Driller Name Role Phone Aminata Linda PA-C Primary Care Provi chrissy Nahid Preciado MD Unavailable [phone] Panchito [place] MD Unavailable [phone] Rony Acosta MD Unavailable [phone] Encounter Details Date Type Department Care Team (Late st Contact Info) Description 09/18/2024 Scanned Document [facility] INTERNAL MED SCAN General Internal Medicine, Scan Social History Tobacco Use Types Packs/Day Years Used Date Smoking Tobacco: Former Cigarettes 2.3 41.9 1 975 - 05/22/2024 Smokeless Tobacco: Former Comments:currently vaping Alcohol Use Standard Drinks/Week Comments Not Currently 0 (1 standard drink = 0.6 oz pur e alcohol) [facility] Utilities Answer Date Recorded In the past 12 months has [employer] electric, gas, oil, or water company threatened [...] 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, 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 Not on file Not on file documented as of this encounter Plan of Treatment Upcoming Encounters Date Type Department Care Team (Late st Contact Info) Description 05/13/2025 2:00 PM EST Office Visit [address] [address] Minal Vazquez, EQUIPMENT SERVICE ENGINEER 863 [facility] [place] [address] [place] [address] 05/19/2025 11:20 AM EST Consult [facility] Pulmonary [address] [phone] Aminata Linda PA-C 100 [place] [address] Sally Fisher, EQUIPMENT SERVICE ENGINEER 699 [place] [address] 07/13/2025 9:30 AM EST Office Visit [address] [phone] Panchito [place] MD [address] [address] 08/18/2025 10:30 AM EST Office Visit [facility] 100 [facility] [address] [place] [address] Aminata Linda PA-C 100 [place] [address] 08/26/2025 10:00 AM EST Office Visit [facility] Heart & Vascular [place] 7 [facility] [place] [address] [place] [phone] Nahid Preciado MD [address] [place] [address] documented as of this encounter Visit Diagnoses Not on filedocumented in this encounter Care Teams Diamond Driller Relationship Specialty Start Date End Date Aminata Linda PA-C [address] [place] [address] PCP - General Internal Medicine 11/07/23 Nahid Preciado MD [address] [place] [address] [place] [address] Primary Irrigation Service Technician Cardiovascular Disease 08/11/24 Panchito [place] MD [address] [place] [address] Pulmonary Disease 09/08/24 Rony Acosta MD [address] [facility] 205 [place] [address] Physician Cardiac Electrophysiology 02/06/25 documented as of this encounter
--- OUTSIDE RECORDS SUMMARY | 2025-04-17 09:06 | XMS_ITS | Encounter Summary ---
Author Organization [facility] Address [address] [place] [address] Care Team Providers Care Timekeeper Name Role Phone Aminata Linda PA-C Primary Care Provi chrissy Nahid Preciado MD Unavailable [phone] Panchito [place] MD Unavailable [phone] Rony Acosta MD Unavailable [phone] Encounter Details Date Type Department Care Team (Late st Contact Info) Description 04/03/2025 Scanned Document [facility] GENERAL SURG SCAN General Surgery, Scan Social History Tobacco Use Types Packs/Day Years Used Date Smoking Tobacco: Some Days Cigarettes 2.3 41.9 Started: 1974; Last attempted to quit: 05/22/2024 Smokeless Tobacco: Former Alcohol Use Standard Drinks/Week Comments Not Currently 0 (1 standard drink = 0.6 oz pur e alcohol) [facility] Utilities Answer Date Recorded In the past 12 months has [employer] electric, gas, oil, or water company threatened to shut off services in your home? No 05/19/2024 Social Connection and Isolation Panel [NHANES] A nswer Date Recorded In a typical week, how many times do you talk on the phone with family, friends, or neighbors? Never 05/19/2024 Frequency of Social Gatherings with Friends and Family Not on file 05/19/2024 Attends Gnosticist Services Not on file 05/19 Active Member [...] any time in the past 12 m [facility], were you homeless or living in a fdc (including now)? 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 Not on file Not on file documented as of this encounter Plan of Treatment Upcoming Encounters Date Type Department Care Team (Late st Contact Info) Description 05/13/2025 2:00 PM EST Office Visit [address] [phone] Minal Vazquez, GROUND DEFENCE OFFICER 863 [facility] [place] 101 [place] [address] 05/19/2025 11:20 AM EST Consult [facility] Pulmonary [address] [phone] Aminata Linda PA-C 100 [place] [address] Sally Fisher, GROUND DEFENCE OFFICER 699 [place] [address] 07/13/2025 9:30 AM EST Office Visit [address] [phone] Panchito [place] MD [address] [address] 08/18/2025 10:30 AM EST Office Visit [facility] 100 [facility] [address] [place] [address] Aminata Linda PA-C 100 [place] [address] 08/26/2025 10:00 AM EST Office Visit [facility] Heart & Vascular [place] 7 [facility] [address] 201 [place] [address] Nahid Preciado MD [address] [place] [address] documented as of this encounter Visit Diagnoses Not on filedocumented in this encounter Care Teams Timekeeper Relationship Specialty Start Date End Date Aminata Linda PA-C [address] [place] [address] PCP - General Internal Medicine 11/07/23 Nahid Preciado MD [address] [place] [address] [place] [address] Primary Multicultural Internship Cardiovascular Disease 08/11/24 Panchito [place] MD [address] [place] [address] Pulmonary Disease 09/08/24 Rony Acosta MD [address] [facility] 205 [place] [address] Physician Cardiac Electrophysiology 02/06/25 documented as of this encounter
--- OUTSIDE RECORDS SUMMARY | 2025-04-17 09:06 | XMS_ITS | Encounter Summary ---
Author Organization [facility] Address [address] [place] [address] Care Team Providers Care Cement Truck Driver Name Role Phone Aminata Linda PA-C Primary Care Provi chirssy Nahid Preciado MD Unavailable [phone] Panchito Hurley MD Unavailable [phone] Rony Acosta MD Unavailable [phone] Encounter Details Date Type Department Care Team (Late st Contact Info) Description 03/18/2025 Scanned Document [facility] [address] [place] [address] Dermatology, Scan Social History Tobacco Use Types Packs/Day Years Used Date Smoking Tobacco: Some Days Cigarettes 2.3 41.9 Started: 1974; Last attempted to quit: 05/22/2024 Smokeless Tobacco: Former Alcohol Use Standard Drinks/Week Comments Not Currently 0 (1 standard drink = 0.6 oz pur e alcohol) [facility] Utilities Answer Date Recorded In the past 12 months has [employer] electric, gas, oil, or water company threatened to shut off services in your home? No 05/19/2024 Social Connection and Isolation Panel [NHANES] A nswer Date Recorded In a typical week, how many times do you talk on the phone with family, friends, or neighbors? Never 05/19/2024 Frequency of Social Gatherings with Friends and Family Not on file 05/19/2024 Attends Confucianist Services Not on file 05/19 Active Member [...] time in the past 12 m [facility], were you homeless or living in a long term (including now)? 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 Not on file Not on file documented as of this encounter Plan of Treatment Upcoming Encounters Date Type Department Care Team (Late st Contact Info) Description 05/13/2025 2:00 PM EST Office Visit [facility] Electrophysiology- [place] [address] [place] [phone] Minal Vazquez, HOTEL OR MOTEL ROOM SERVICE SUPERVISOR [address] [facility] [address] [place] [address] 05/19/2025 11:20 AM EST Consult [facility] Pulmonary [address] [address] Aminata Linda PA-C [address] [place] [address] Sally Fisher, HOTEL OR MOTEL ROOM SERVICE SUPERVISOR [address] [place] [address] 07/13/2025 9:30 AM EST Office Visit [facility] Pulmonary [facility] [address] [place] [address] Panchito Hurley MD [address] [address] 08/18/2025 10:30 AM EST Office Visit [facility] [address] [facility] [address] [place] [phone] Aminata Linda PA-C [address] [place] [address] 08/26/2025 10:00 AM EST Office Visit [facility] Heart & Vascular [facility] [address] [facility] [address] [place] [phone] Nahid Prceiado MD [address] [place] [address] [place] [address] documented as of this encounter Visit Diagnoses Not on filedocumented in this encounter Care Teams Cement Truck Driver Relationship Specialty Start Date End Date Aminata Linda PA-C [address] [place] [address] PCP - General Internal Medicine 11/07/23 Nahid Preciado MD [address] [place] [address] Primary Oracle Fusion Developer Cardiovascular Disease 08/11/24 Panchito Hurley MD [address] [place] [id number] Pulmonary Disease 09/08/24 Rony Acosta MD [address] [place] [address] Physician Cardiac Electrophysiology 02/06/25 documented as of this encounter
== END 2025-04-17 09:06 | disposition home or self-care (01) ==
LOC: HO.HGS 08:47
PROVIDERS: PCP Physician Assistant Medical; Visit Provider Surgery
DX: Z98.890 Other specified postprocedural states (principal); Z87.19 Personal history of other diseases of the digestive system
CPT/HCPCS: 99024

== ENCOUNTER → 2025-04-17 08:47 | Outpatient (BNVA) | payer MEDICARE, SELFPAY | PROVIDERS: PCP Physician Assistant Medical; Visit Provider Surgery | DX: Z98.890 Other specified postprocedural states (principal); Z87.19 Personal history of other diseases of the digestive system | CPT/HCPCS: 99212 ==

== ENCOUNTER 2025-05-28 08:01 | Day surgery (SDC) | payer MEDICARE, SELFPAY ==
--- OUTSIDE RECORDS SUMMARY | 2025-04-01 16:10 | XMS_ITS | Clinical Summary ---
Author Organization [facility] 299 [facility] Address [address] [place] [address] Phone Care Team Providers Care Top Inventory Control Executive Name Role Phone Solange Medina MD Primary Care Provider [phone] Allergies Active Allergy Reactions Criticality Noted Date Comments Clobetasol Propionate Swelling 12/30/2015 Nye Tar Swelling 12/30/2015 Medications magnesium oxide 500 [...] 25.0-29.9) 10/07/2021 Anxiety 03/09/2016 Paranoid personality (disorder) ([facility] V24, S[facility] V28) 03/06/2016 Overview (07/29/2024): Hospitalized 02/2016 Hyponatremia 02/25/2016 Subclinical hypothyroidism 02/08/2016 Abnormal LFTs (liver function tests) 02/02/2016 Overview (07/29/2024): Associated with alcohol abuse, SGPT 97, SGPT 118, alk phos 144 on 10/28/15 Macrocytic anemia 02/02/2016 Overview (07/29/2024): Associated with alcohol abuse, 10.8/31.6 with MCV of 105.7, vitamin B 12 617 on 10/28/15 Psoriatic arthritis ([facility] V24, [facility] V28) 1 09/03/2012 Overview (07/29/2024): Onset . [...] Started at age 29. Humira since ~ [id number]. Sees Dr. Lebron Diamond Tobacco use disorder [...] Region Laterality Modality Computed Tomogra phy 09/08/2023 7:2 1 AM EST Narrative 09/10/2023 5:00 AM [facility] Diagnostic Imaging Department [address] [place] [address] Patient: JACQUIE CHAVEZ /Age/Sex: 1955 - 67 - M Unit#: [id number] Location/Status: SPDICATL/REG CLI Mnemonic/Ordering Site: [facility] 234 BEDS AT [facility] Ordering Physician: VIJI HAYDEN MD CT Lung [...] by: MAITE MELGOZA MD Dic Date/Time: 09/10/23 7941 Sign date/Time: 09/10/23 0500 Procedure Note Maite Melgoza MD - 02/25/2024 [facility] Diagnostic Imaging Department [address] [place] [address] Patient: MARICHUYJOSE DAVIDJACQUIE /Age/Sex: 1955 - 67 - M Unit#: [id number] [facility] CLI Mnemonic/Ordering Site: [facility] Ordering Physician: VIJI HAYDEN MD CT Lung Screening Low Dose - 09/08/23 - 6555 Report Status:Signed Indication: Greater than 20 total [...] by: MAITE MELGOZA MD Dic Date/Time: 09/10/23 7388 Sign date/Time: 09/10/23 0505 Viji Hayden MD IMG CT PROCEDURES Final [...] Maintenance Insurance [employer] MED[employer]ARE ADVANTAGE Care Teams Top Inventory Control Executive Relationship Specialty Start Date End Date Solange Medina MD [address] [place] [address] PCP - General Internal Medicine 02/14/21
--- OUTSIDE RECORDS SUMMARY | 2025-04-01 16:10 | XMS_ITS | Encounter Summary ---
Author Organization [facility] Address [address] [place] [address] Care Team Providers Care Road Mechanic Name Role Phone Aminata Linda PA-C Primary Care Provi chrissy Nahid Preciado MD Unavailable [phone] Panchito Hurley MD Unavailable [phone] Rony Acosta MD Unavailable [phone] Encounter Details Date Type Department Care Team (Late st Contact Info) Description 03/18/2025 Scanned Document [facility] [address] [place] [address] Dermatology, Scan Social History Tobacco Use Types Packs/Day Years Used Date Smoking Tobacco: Some Days Cigarettes 2.3 41.9 Started: 1974; Last attempted to quit: 05/22/2024 Smokeless Tobacco: Former Alcohol Use Standard Drinks/Week Comments Not Currently 0 (1 standard drink = 0.6 oz pur e alcohol) [facility] Utilities Answer Date Recorded In the past 12 months has [employer] electric, gas, oil, or water company threatened [...] any time in the past 12 m [facility], were you homeless or living in a mcfp (including now)? 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, 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 Not on file Not on file documented as of this encounter Plan of Treatment Upcoming Encounters Date Type Department Care Team (Late st Contact Info) Description 05/13/2025 2:00 PM EST Office Visit [facility] Electrophysiology- [place] [address] [place] [address] Minal Vazquez, PANEL FLOW MACHINE OPERATOR 863 [facility] 101 [place] [address] 05/19/2025 11:20 AM EST Consult [facility] Pulmonary [address] [phone] Aminata Linda PA-C 100 [place] [address] Sally Fisher, PANEL FLOW MACHINE OPERATOR 699 [place] [address] 05/28/2025 10:30 AM EST Office Visit [facility] 100 [facility] [address] [place] [address] Aminata Linda PA-C 100 [place] [address] 07/13/2025 9:30 AM EST Office Visit [address] [phone] Panchito Hurley MD [address] [address] 08/26/2025 10:00 AM EST Office Visit [facility] Heart & Vascular [facility] 7 [facility] 201 [place] [address] Nahid Preciado MD [address] [place] [address] [place] [address] documented as of this encounter Visit Diagnoses Not on filedocumented in this encounter Care Teams Road Mechanic Relationship Specialty Start Date End Date Aminata Linda PA-C [address] [place] [address] PCP - General Internal Medicine 11/07/23 Nahid Preciado MD [address] [place] [address] Primary Fretted String Instrument Repairer Cardiovascular Disease 08/11/24 Panchito Hurley MD [address] [place] [address] Pulmonary Disease 09/08/24 Rony Acosta MD [address] [place] [address] Physician Cardiac Electrophysiology 02/06/25 documented as of this encounter
--- OUTSIDE RECORDS SUMMARY | 2025-04-01 16:10 | XMS_ITS | Encounter Summary ---
Author Organization [facility] Address [address] [place] [address] Care Team Providers Care Turkish Line Attendant Name Role Phone Aminata Linda PA-C Primary Care Provi chrissy Nahid Preciado MD Unavailable [phone] Panchito Hurley MD Unavailable [phone] Rony Acosta MD Unavailable [phone] Reason for Visit * Reason Onset Date Comments Referral 02/24/2025 Encounter Details Date Type Department Care Team (Late st Contact Info) Description 02/24/[address] [address] Aminata Linda PA-C [address] [place] [address] Referral Social History Tobacco Use Types Packs/Day Years Used Date Smoking Tobacco: Some Days Cigarettes 2.3 41.9 Started: 1974; Last attempted to quit: 05/22/2024 Smokeless Tobacco: Former Alcohol Use Standard Drinks/Week Comments Not Currently 0 (1 standard drink = 0.6 oz pur e alcohol) [facility] Utilities Answer Date Recorded In the past 12 months has [employer] electric, gas, oil, or water company threatened to shut off services in your home? No 05/19/2024 Social Connection and Isolation Panel [NHANES] A nswer Date Recorded In a typical week, how many times do you talk on the phone with family, friends, or neighbors? Never 05/19/2024 Frequency of Social Gatherings with Friends and Family Not on file 05/19/2024 Attends Mandaeism Services Not on file 05/19 Active Member [...] any time in the past 12 m [facility], were you homeless or living in a residential (including now)? 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 Not on file Not on file documented as of this encounter Miscellaneous Notes * Telephone Encounter - Lizy Gilliland MA - 02/24/2025 2:47 PM EDT Faxed office notes to Kenna THOMPSON [phone] documented in this encounter Plan of Treatment Upcoming Encounters Date Type Department Care Team (Late st Contact Info) Description 05/13/2025 2:00 PM EST Office Visit [facility] 7[address] [place] [address] Minal Vazquez, GEOTHERMAL POWERPLANT MECHANIC [address] [address] 05/19/2025 11:20 AM EST Consult [address] [phone] Aminata Linda PA-C [address] [place] [address] Sally Fisher, GEOTHERMAL POWERPLANT MECHANIC 699 [place] [address] 05/28/2025 10:30 AM EST Office Visit [address] [phone] Aminata Linda PA-C [address] [place] [address] 07/13/2025 9:30 AM EST Office Visit [address] [phone] Panchito Hurley MD [address] [place] [address] 08/26/2025 10:00 AM EST Office Visit [facility] [place] [facility] 201 [place] [address] Nahid Preciado MD [address] [place] [address] documented as of this encounter Visit Diagnoses Not on filedocumented in this encounter Care Teams Turkish Line Attendant Relationship Specialty Start Date End Date Aminata Linda PA-C [address] [place] [address] PCP - General Internal Medicine 11/07/23 Nahid Preciado MD [address] [place] [address] Primary Cosmetic Consultant Cardiovascular Disease 08/11/24 Panchito Hurley MD [address] [address] Pulmonary Disease 09/08/24 Rony Acosta MD [address] [facility] 205 [place] [address] Physician Cardiac Electrophysiology 02/06/25 documented as of this encounter
--- OUTSIDE RECORDS SUMMARY | 2025-04-01 16:10 | XMS_ITS | Encounter Summary ---
Author Organization [facility] Address [address] [place] [address] Care Team Providers Care Plaster Mixer Name Role Phone Aminata Linda PA-C Primary Care Provi chrissy Nahid Preciado MD Unavailable [phone] Panchito Hurley MD Unavailable [phone] Rony Acosta MD Unavailable [phone] Encounter Details Date Type Department Care Team (Late st Contact Info) Description 01/15/2025 Scanned Document [facility] Pulmonary [place] [address] [address] Panchito Hurley MD 85 [facility] [place] [address] [place] [id number] Social History Tobacco Use Types Packs/Day Years Used Date Smoking Tobacco: Former Cigarettes 2.3 41.9 1 975 - 05/22/2024 Smokeless Tobacco: Former Comments:currently vaping Alcohol Use Standard Drinks/Week Comments Not Currently 0 (1 standard drink = 0.6 oz pur e alcohol) [facility] Utilities Answer Date Recorded In the past [...] and Family Not on file 05/19/2024 Attends Yazidism Services Not on file 05/19 Active Member [...] time in the past 12 m [facility], were you homeless or living in a residential (including now)? 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 Not on file Not on file documented as of this encounter Plan of Treatment Upcoming Encounters Date Type Department Care Team (Late st Contact Info) Description 05/13/2025 2:00 PM EST Office Visit [facility] Electrophysiology- [place] 7[address] [place] [address] Minal Vazquez, MAJOR LEAGUE BASEBALL UMPIRE 863 [facility] 101 [place] [address] 05/19/2025 11:20 AM EST Consult [facility] Pulmonary [place] 100 [place] [phone] Aminata Linda PA-C 100 [place] [address] Sally Fisher, MAJOR LEAGUE BASEBALL UMPIRE 6[address] [place] [address] 05/28/2025 10:30 AM EST Office Visit [facility] 100 [facility] [address] [place] [address] Aminata Linda PA-C [address] [place] [address] 07/13/2025 9:30 AM EST Office Visit [facility] 100 [place] [address] Panchito Hurley MD 85 [facility] 923 [place], [place] [phone] 08/26/2025 10:00 AM EST Office Visit [facility] Heart & Vascular [facility] [address] [place] [address] [place] [address] Nahid Preciado MD [address] [place] [address] documented as of this encounter Visit Diagnoses Not on filedocumented in this encounter Care Teams Plaster Mixer Relationship Specialty Start Date End Date Aminata Linda PA-C [address] [place] [address] PCP - General Internal Medicine 11/07/23 Nahid Preciado MD [address] [place] [address] [place] [phone] Primary Auto Body Repair Teacher Cardiovascular Disease 08/11/24 Panchito Hurley MD [address] [place] [address] Pulmonary Disease 09/08/24 Rony Acosta MD [address] [facility] 205 [place] [address] Physician Cardiac Electrophysiology 02/06/25 documented as of this encounter
--- OUTSIDE RECORDS SUMMARY | 2025-04-01 16:10 | XMS_ITS | Encounter Summary ---
Author Organization [facility] Address [address] [place] [address] Care Team Providers Care Intelligence Agent Name Role Phone Aminata Linda PA-C Primary Care Provi chrissy Nahid Preciado MD Unavailable [phone] Panchito Hurley MD Unavailable Rony Acosta MD Unavailable [phone] Encounter Details Date Type Department Care Team (Late st Contact Info) Description 11/28/2024 Telephone [facility] Heart & Vascular [place] [address] [address] Nahid Preciado MD [address] [place] [address] Social History Tobacco Use Types Packs/Day Years Used Date Smoking Tobacco: Former Cigarettes 2.3 41.9 1 975 - 05/22/2024 Smokeless Tobacco: Former Comments:currently vaping Alcohol Use Standard Drinks/Week Comments Not Currently 0 (1 standard drink = 0.6 oz pur e alcohol) [facility] Utilities Answer Date Recorded In the [...] and Family Not on file 05/19/2024 Attends Christianity Services Not on file 05/19 Active Member [...] were you homeless or living in a prison (including now)? 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 [place] [address] [place] [address] 05/19/2025 11:20 AM EST [facility] [place] 100 [place] [phone] Aminata Linda PA-C 100 [place] [address] Sally Fisher, SALES ASSOCIATE FISHING 6[address] [place] [address] 05/28/2025 10:30 AM EST Office Visit [facility] 100 [facility] [address] [place] [phone] Aminata Linda PA-C 100 [place] [address] 07/13/2025 9:30 AM EST Office Visit [facility] 100 [place] [phone] Panchito Hurley MD 85 [facility] 923 [place] [address] 08/26/2025 10:00 AM EST Office Visit [facility] Heart & Vascular [place] [address] [place] [address] [place] [address] Nahid Preciado MD [address] [place] [address] documented as of this encounter Visit Diagnoses Not on filedocumented in this encounter Care Teams Intelligence Agent Relationship Specialty Start Date End Date Aminata Linda PA-C [address] [place] [address] PCP - General Internal Medicine 11/07/23 Nahid Preciado MD [address] [place] [address] Primary Sandblasting Supervisor Cardiovascular Disease 08/11/24 Panchito Hurley MD [address] [place] [address] Pulmonary Disease 09/08/24 Rony Acosta MD [address] [facility] 205 [place] [address] Physician Cardiac Electrophysiology 02/06/25 documented as of this encounter
--- OUTSIDE RECORDS SUMMARY | 2025-04-01 16:10 | XMS_ITS | Clinical Summary ---
Author Organization [facility]ly [facility] Address 100 [place] [address] Care Team Providers Care Emergency Medical Technician Basic Name Role Phone Aminata Linda PA-C Primary Care Provi chrissy Nahid Preciado MD Unavailable [phone] Panchito Mcgrath MD Unavailable Rony Acosta MD Unavailable [phone] Allergies Active Allergy Reactions Criticality Noted Date Comments Clobetasol Swelling Medium 12/30/2015 Whitley Tar Extract Swelling Medium 12/30/2015 Medications triamcinolone [...] Department Care Team Description 03/18/2025 Scanned Document [facility] [address] [place] [address] Dermatology, Scan 03/12/2025 Scanned Document [facility] GENERAL SURG SCAN General Surgery, Scan 03/06/2025 Telephone [facility] [address] [place] [phone] Panchito Mcgrath MD 02/26/2025 Scanned Document [facility] [address] [place] [address] Gastroenterolog y, Scan 02/24/2025 Telephone [facility] [address] [place] [address] Aminata Linda PA-C Referral 02/10/2025 2:15 PM EDT Office Visit [facility] Vascular [address] [address] aNhid Preciado MD Primary hypertension (Primary Dx); Paroxysmal atrial fibrillation (HCC); Current use of concert pianist anticoagulation 02/10/2025 Travel 02/06/2025 2:30 PM EDT Consult [facility] [address] [phone] Nahid Preciado MD Chokshi, Moulin Y, MD Persistent atrial fibrillation (HCC) (Primary Dx); Cardiac arrhythmia, unspecified cardiac arrhythmia type 02/06/2025 Travel 01/20/2025 1:45 PM EDT Office Visit [address] [phone] Panchito Mcgrath MD Chronic obstructive pulmonary disease, unspecified COPD type (HCC) (Primary Dx); Personal history of nicotine dependence 01/20/2025 Travel 01/15/2025 Scanned Document [address] [place] [phone] Panchito Mcgrath MD from Last 3 Months [...] = 0.6 oz pur e alcohol) [facility] Utilities Answer Date Recorded In [...] and Family Not on file 05/19/2024 Attends Protestant Services Not on file 05/19 Active Member [...] time in the past 12 m [facility], were you homeless or living in a skilled nursing (including now)? 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 Not on file [...] Description 05/13/2025 2:00 PM EST Office Visit [address] [address] Minal Vazquez, RETAIL MERCHANDISING SPECIALIST [address] [address] 05/19/2025 11:20 AM EST Consult [facility] [place] 100 [place] [address] Aminata Linda PA-C 100 [place] [address] Sally Fisher, RETAIL MERCHANDISING SPECIALIST 699 [place] [address] 05/28/2025 10:30 AM EST Office Visit [facility] 100 [facility] [address] [place] [phone] Aminata Linda PA-C 100 [place] [address] 07/13/2025 9:30 AM EST Office Visit [facility] [place] [address] [place] [address] Panchito Mcgrath MD [address] [place] [address] 08/26/2025 10:00 AM EST Office Visit [facility] [place] 7 [facility] 201 [place] [phone] Nahid Preciado MD [address] [place] [address] Health Maintenance Due Date Last Done Comments [...] is included. Ventricular rate 56 BPM EKG [facility] Atrial rate 56 BPM EKG [facility] P-R interval 166 ms EKG [facility] QRS duration 92 ms EKG [facility] Q-T interval 436 ms EKG [facility] QTC calculation (Bazett) 421 ms EKG [facility] P axis 35 degrees EKG [facility] R axis 34 degrees EKG [facility] T axis 67 degrees EKG [facility] 02/10/2025 2:27 PM EDT Narrative EKG [facility] - 02/10/2025 2:36 PM EDT Sinus [...] Joseph () on 02/10/2025 2:36:14 PM us Nahid Preciado MD ECG ORDERABLES Final Res ult EKG [facility] * CT Chest Low Dose Cancer [...] for CT CHEST LOW DOSE CANCER SCREENING ([id number]) can be placed. Electronically signed by: Nicholas Harding MD 09/05/2024 03:38 PM EST Thank you for referring your patient to us, Nicholas Harding MD [phone] (Electronically Signed - 09/05/2024 15:38) Copy: PATIENT , PANCHITO MCGRATH MD [facility] [place] [address] [place] [address] Narrative 09/05/2024 3:38 PM EST EXAMINATION: CT LOW-DOSE SCREENING CHEST WITHOUT CONTRAST CLINICAL INFORMATION: Annual lung cancer screening. Tobacco use. The patient is a current smoker with a 60 pack-year history of smoking. COMPARISON: None available. TECHNIQUE: Multidetector volumetric non-contrast CT imaging of the chest was obtained on a [employer] [place] 660 scanner using low-dose screening CT technique. [...] imaging of the chest was obtainedon a [employer] [place] 660 scanner using low-dose screening CT technique. [...] for CT CHEST LOW DOSE CANCER SCREENING ([id number]) canbe placed. Electronically signed by: Nicholas Harding MD 09/05/2024 03:38 PM EST RPWorkstation: [id number] Thank you for referring your patient to us, Nicholas Harding MD [phone] (Electronically Signed - 09/05/2024 15:38) Copy: PATIENT , PANCHITO MCGRATH MD [facility] [place] [address] [place], [place] [id number] Aminata Linda PA-C IMG CT ORDERABLES F inal Result from Last 3 Months or Most Recently Relevant to Health Maintenance Insurance [facility] MEDICARE [facility] MEDICARE Care Teams Emergency Medical Technician Basic Relationship Specialty Start Date End Date Aminata Linda PA-C [address] [place] [address] PCP - General Internal Medicine 11/07/23 Nahid Preciado MD [address] [place] [address] [place] [address] Primary Airport Operations Specialist Cardiovascular Disease 08/11/24 Panchito Mcgrath MD [address] [place] [address] Pulmonary Disease 09/08/24 Rony Acosta MD [address] [facility] 205 [place] [address] Physician Cardiac Electrophysiology 02/06/25
--- OUTSIDE RECORDS SUMMARY | 2025-04-01 16:10 | XMS_ITS | Encounter Summary ---
Author Organization [facility] Address [address] [place] [address] Care Team Providers Care Non Destructive Testing Supervisor Name Role Phone Aminata Linda PA-C Primary Care Provi chrissy Nahid Preciado MD Unavailable [phone] Panchito Hurley MD Unavailable [phone] Rony Acosta MD Unavailable [phone] Encounter Details Date Type Department Care Team (Late st Contact Info) Description 03/12/2025 Scanned Document [facility] GENERAL SURG SCAN General Surgery, Scan [...] Recorded In the past 12 months has [employer] electric, gas, oil, or water company threatened to shut off services in your home? No 05/19/2024 Social Connection and Isolation Panel [NHANES] A nswer Date Recorded In a typical week, how many times do you talk on the phone with family, friends, or neighbors? Never 05/19/2024 Frequency of Social Gatherings with Friends and Family Not on file 05/19/2024 Attends Pentecostalism Services Not on file 05/19 Active Member [...] any time in the past 12 m [facility], were you homeless or living in a nursing home (including now)? No 05/19/2024 Sex and Gender Information Value Date Recorded Sex Assigned at Male 11/08/2023 3:45 AM EDT Legal Sex Male 9:57 AM EDT Gender Identity Male 11/08/2023 3:45 AM EDT Sexual Orientation Heterosexual (straight) 11/07 3:45 AM EDT Occupation Industry Job Start Date Job End Date [employer], 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 Not on file Not on file documented as of this encounter Plan of Treatment Upcoming Encounters Date Type Department Care Team (Late st Contact Info) Description 05/13/2025 2:00 PM EST Office Visit [address] [address] Minal Vazquez, TELECOMMUNICATIONS ADMINISTRATOR 863 [facility] 101 [place] [address] 05/19/2025 11:20 AM EST Consult [facility] Pulmonary [address] [phone] Aminata Linda PA-C 100 [place] [address] Sally Fisher, TELECOMMUNICATIONS ADMINISTRATOR 699 [place] [address] 05/28/2025 10:30 AM EST Office Visit [address] 101 [place] [address] Aminata Linda PA-C 100 [place] [address] 07/13/2025 9:30 AM EST Office Visit [facility] Pulmonary [address] [phone] Panchito Hurley MD [address] [address] 08/26/2025 10:00 AM EST Office Visit [facility] Heart & Vascular [place] 7 [facility] 201 [place] [phone] Nahid Preciado MD [address] [place] [address] documented as of this encounter Visit Diagnoses Not on filedocumented in this encounter Care Teams Non Destructive Testing Supervisor Relationship Specialty Start Date End Date Aminata Linda PA-C [address] [place] [address] PCP - General Internal Medicine 11/07/23 Nahid Preciado MD [address] [place] [address] [place] [address] Primary Analytical Tech Cardiovascular Disease 08/11/24 Panchito Hurley MD [address] [place] [address] Pulmonary Disease 09/08/24 Rony Acosta MD [address] [facility] 205 [place] [address] Physician Cardiac Electrophysiology 02/06/25 documented as of this encounter
--- OUTSIDE RECORDS SUMMARY | 2025-04-01 16:10 | XMS_ITS | Encounter Summary ---
Author Organization [facility] Address [address] [place] [address] Care Team Providers Care Auto Detailer Name Role Phone Aminata Linda PA-C Primary Care Provi chrissy Nahid Preciado MD Unavailable [phone] Panchito Hurley MD Unavailable [phone] Rony Acosta MD Unavailable [phone] Encounter Details Date Type Department Care Team (Late st Contact Info) Description 12/05/2024 Scanned Document [facility] [place] [address] [address] Panchito Hurley MD 85 [facility] [place] [address] [place] [id number] Social History Tobacco Use Types Packs/Day Years Used Date Smoking Tobacco: Former Cigarettes 2.3 41.9 1 975 - 05/22/2024 Smokeless Tobacco: Former Comments:currently vaping Alcohol Use Standard Drinks/Week Comments Not Currently 0 (1 standard drink = 0.6 oz pur e alcohol) [facility] Utilities Answer Date Recorded In the past [...] and Family Not on file 05/19/2024 Attends Sabianism Services Not on file 05/19 Active Member [...] any time in the past 12 m [facility], were you homeless or living in a retirement (including now)? 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, 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 Not on file Not on file documented as of this encounter Plan of Treatment Upcoming Encounters Date Type Department Care Team (Late st Contact Info) Description 05/13/2025 2:00 PM EST Office Visit [facility] [place] 711 [place] [address] Minal Vazquez, PROSPECTING OBSERVER 863 [facility] [place] 101 [place] [address] 05/19/2025 11:20 AM EST Consult [facility] Pulmonary [place] 100 [place] [phone] Aminata Linda PA-C 100 [place] [address] Sally Fisher, PROSPECTING OBSERVER 699 [place] [address] 05/28/2025 10:30 AM EST Office Visit [facility] 100 [facility] [address] [place] [phone] Aminata Linda PA-C 100 [place] [address] 07/13/2025 9:30 AM EST Office Visit [facility] 100 [place] [phone] Panchito Hurley MD 85 [facility] 923 [place], [place] [phone] 08/26/2025 10:00 AM EST Office Visit [facility] [address] [place] 201 [place] [address] Nahid Preciado MD [address] [place] [address] documented as of this encounter Visit Diagnoses Not on filedocumented in this encounter Care Teams Auto Detailer Relationship Specialty Start Date End Date Aminata Linda PA-C [address] [place] [address] PCP - General Internal Medicine 11/07/23 Nahid Preciado MD [address] [place] [address] [place] [phone] Primary Time Checker Cardiovascular Disease 08/11/24 Panchito Hurley MD [address] [place] [address] Pulmonary Disease 09/08/24 Rony Acosta MD [address] [facility] 205 [place] [address] Physician Cardiac Electrophysiology 02/06/25 documented as of this encounter
--- OUTSIDE RECORDS SUMMARY | 2025-04-01 16:10 | XMS_ITS | Encounter Summary ---
Author Organization [facility] Address [address] [place] [address] Care Team Providers Care Class 1 Owner Operator Name Role Phone Aminata Linda PA-C Primary Care Provi chrissy Nahid Preciado MD Unavailable [phone] Panchito Hurley MD Unavailable [phone] Rony Acosta MD Unavailable [phone] Encounter Details Date Type Department Care Team (Late st Contact Info) Description 09/29/2024 Scanned Document [facility] PRIMARY CARE SCAN Primary Care, Scan Social History Tobacco Use Types Packs/Day Years Used Date Smoking Tobacco: Former Cigarettes 2.3 41.9 1 975 - 05/22/2024 Smokeless Tobacco: Former Comments:currently vaping Alcohol Use Standard Drinks/Week Comments Not Currently 0 (1 standard drink = 0.6 oz pur e alcohol) [facility] Utilities Answer Date Recorded In the past 12 months has [employer] electric, gas, oil, or water company threatened [...] any time in the past 12 m [facility], were you homeless or living in a detention (including now)? 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 Pulmonary [address] [phone] Aminata Linda PA-C 100 [place] [address] Sally Fisher, MANAGER INVESTMENT BANKING 699 [place] [address] 05/28/2025 10:30 AM EST Office Visit [facility] 100 [facility] 101 [place] [address] Aminata Linda PA-C 100 [place] [address] 07/13/2025 9:30 AM EST Office Visit [facility] Pulmonary [address] [address] Panchito Hurley MD [address] [address] 08/26/2025 10:00 AM EST Office Visit [facility] Heart & Vascular [place] [address] [facility] [address] [place] [address] [place] [phone] Nahid Preciado MD [address] [place] [address] documented as of this encounter Visit Diagnoses Not on filedocumented in this encounter Care Teams Class 1 Owner Operator Relationship Specialty Start Date End Date Aminata Linda PA-C [address] [place] [address] PCP - General Internal Medicine 11/07/23 Nahid Preciado MD [address] [place] [address] [place] [address] Primary Combat Systems Operator Cardiovascular Disease 08/11/24 Panchito Hurley MD [address] [place] [address] Pulmonary Disease 09/08/24 Rony Acosta MD [address] [place] 205 [place] [address] Physician Cardiac Electrophysiology 02/06/25 documented as of this encounter
--- OUTSIDE RECORDS SUMMARY | 2025-04-01 16:10 | XMS_ITS | Encounter Summary ---
Author Organization [facility] Address [address] [place] [address] Care Team Providers Care New Car Inspector Name Role Phone Aminata Linda PA-C Primary Care Provi chrissy Nahid Preciado MD Unavailable [phone] Panchito Hurley MD Unavailable [phone] Rony Acosta MD Unavailable [phone] Encounter Details Date Type Department Care Team (Late st Contact Info) Description 02/26/2025 Scanned Document [facility] 1290 [place] [address] Gastroenterology, Scan Social History Tobacco Use Types Packs/Day Years Used Date Smoking Tobacco: Some Days Cigarettes 2.3 41.9 Started: 1974; Last attempted to quit: 05/22/2024 Smokeless Tobacco: Former Alcohol Use Standard Drinks/Week Comments Not Currently 0 (1 standard drink = 0.6 oz pur e alcohol) [facility] Utilities Answer Date Recorded In the past 12 months has [employer] electric, gas, oil, or water company threatened to shut off services in your home? No 05/19/2024 Social Connection and Isolation Panel [NHANES] A nswer Date Recorded In a typical week, how many times do you talk on the phone with family, friends, or neighbors? 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, 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 Not on file Not on file documented as of this encounter Plan of Treatment Upcoming Encounters Date Type Department Care Team (Late st Contact Info) Description 05/13/2025 2:00 PM EST Office Visit [facility] Elect[facility]iology- [place] 711 [place] [phone] Minal Vazquez, MOTOR POWER CONNECTOR 863 [facility] 101 [place] [address] 05/19/2025 11:20 AM EST Consult [facility] Pulmonary [address] [phone] Aminata Linda PA-C 100 [place] [address] Sally Fisher, MOTOR POWER CONNECTOR 699 [place] [address] 05/28/2025 10:30 AM EST Office Visit [facility] 100 [facility] 101 [place] [address] Aminata Linda PA-C 100 [place] [address] 07/13/2025 9:30 AM EST Office Visit [facility] Pulmonary [place] 100 [place] [address] Panchito Hurley MD [address] [place] [address] 08/26/2025 10:00 AM EST Office Visit [facility] 7 Health system 201 [place] [address] Nahid Preciado MD [address] [place] [address] [place] [address] documented as of this encounter Visit Diagnoses Not on filedocumented in this encounter Care Teams New Car Inspector Relationship Specialty Start Date End Date Aminata Linda PA-C [address] [place] [address] PCP - General Internal Medicine 11/07/23 Nahid Preciado MD [address] [place] [address] Primary Senior Energy Analyst Cardiovascular Disease 08/11/24 Panchito Hurley MD [address] [place] [address] Pulmonary Disease 09/08/24 Rony Acosta MD [address] [facility] 205 [place] [address] Physician Cardiac Electrophysiology 02/06/25 documented as of this encounter
--- OUTSIDE RECORDS SUMMARY | 2025-04-01 16:10 | XMS_ITS | Encounter Summary ---
Author Organization [facility] Address [address] [place] [address] Care Team Providers Care Inspector Optical Instrument Name Role Phone Aminata Linda PA-C Primary Care Provi chrissy Nahid Preciado MD Unavailable [phone] Panchito Hurley MD Unavailable [phone] Rony Acosta MD Unavailable [phone] Encounter Details Date Type Department Care Team (Late st Contact Info) Description 12/17/2024 Scanned Document [facility] 1290 [place] [address] Dermatology, Scan Social History Tobacco Use Types Packs/Day Years Used Date Smoking Tobacco: Former Cigarettes 2.3 41.9 1 975 - 05/22/2024 Smokeless Tobacco: Former Comments:currently vaping Alcohol Use Standard Drinks/Week Comments Not Currently 0 (1 standard drink = 0.6 oz pur e alcohol) [facility] Utilities Answer Date Recorded In the past 12 months has [employer] electric, gas, oil, or water company threatened [...] any time in the past 12 m [facility], were you homeless or living in a intermediate (including now)? 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 Not on file Not on file documented as of this encounter Plan of Treatment Upcoming Encounters Date Type Department Care Team (Late st Contact Info) Description 05/13/2025 2:00 PM EST Office Visit [facility] Electrophysiology- [place] 711 [place] [address] Minal Vazquez, TIMBER SELECTOR 863 [facility] 101 [place] [address] 05/19/2025 11:20 AM EST Consult [facility] Pulmonary [address] [address] Aminata Linda PA-C 100 [place] [address] Sally Fisher, TIMBER SELECTOR 699 [place] [address] 05/28/2025 10:30 AM EST Office Visit [facility] 100 [facility] 101 [place] [address] Aminata Linda PA-C 100 [place] [address] 07/13/2025 9:30 AM EST Office Visit [facility] Pulmonary [place] 100 [place] [address] Panchito Hurley MD [address] [place] [address] 08/26/2025 10:00 AM EST Office Visit [facility] 7 [facility] 201 [place] [address] Nahid Preciado MD [address] [place] [address] [place] [address] documented as of this encounter Visit Diagnoses Not on filedocumented in this encounter Care Teams Inspector Optical Instrument Relationship Specialty Start Date End Date Aminata Linda PA-C [address] [place] [address] PCP - General Internal Medicine 11/07/23 Nahid Preciado MD [address] [place] [address] Primary Corrections Identification Technician Cardiovascular Disease 08/11/24 Panchito Hurley MD [address] [place] [address] Pulmonary Disease 09/08/24 Rony Acosta MD [address] [address] Physician Cardiac Electrophysiology 02/06/25 documented as of this encounter
--- OUTSIDE RECORDS SUMMARY | 2025-04-01 16:10 | XMS_ITS | Encounter Summary ---
Author Organization [facility] Address [address] [place] [address] Care Team Providers Care Freight Rate Specialist Name Role Phone Aminata Linda PA-C Primary Care Provi chrissy Nahid Preciado MD Unavailable [phone] Panchito Hurley MD Unavailable [phone] Rony Acosta MD Unavailable [phone] Encounter Details Date Type Department Care Team (Late st Contact Info) Description 09/18/2024 Scanned Document [facility] INTERNAL MED SCAN General Internal Medicine, Scan Social History Tobacco Use Types Packs/Day Years Used Date Smoking Tobacco: Former Cigarettes 2.3 41.9 1 975 - 05/22/2024 Smokeless Tobacco: Former Comments:currently vaping Alcohol Use Standard Drinks/Week Comments Not Currently 0 (1 standard drink = 0.6 oz pur e alcohol) [facility] Utilities Answer Date Recorded In the past 12 months has [employer] electric, gas, oil, or water company threatened [...] any time in the past 12 m [facility], were you homeless or living in a intermediate (including now)? 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[employer], 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 Not on file Not on file documented as of this encounter Plan of Treatment Upcoming Encounters Date Type Department Care Team (Late st Contact Info) Description 05/13/2025 2:00 PM EST Office Visit [address] [address] Minal Vazquez, DATA SCIENTIST 863 [facility] 101 [place] [address] 05/19/2025 11:20 AM EST Consult [facility] Pulmonary [address] [phone] Aminata Linda PA-C 100 [place] [address] Salyl Fisher, DATA SCIENTIST 699 [place] [address] 05/28/2025 10:30 AM EST Office Visit [address] 101 [place] [address] Aminata Linda PA-C 100 [place] [address] 07/13/2025 9:30 AM EST Office Visit [facility] Pulmonary [address] [phone] Panchito Hurley MD [address] [address] 08/26/2025 10:00 AM EST Office Visit [facility] Heart & Vascular [place] 7 [facility] 201 [place] [address] Nahid Preciado MD [address] [place] [address] documented as of this encounter Visit Diagnoses Not on filedocumented in this encounter Care Teams Freight Rate Specialist Relationship Specialty Start Date End Date Aminata Linda PA-C [address] [place] [address] PCP - General Internal Medicine 11/07/23 Nahid Preciado MD [address] [place] [address] [place] [address] Primary Mortgage Protection Specialist Cardiovascular Disease 08/11/24 Panchito Hurley MD [address] [place] [address] Pulmonary Disease 09/08/24 Rony Acosta MD [address] [facility] 205 [place] [address] Physician Cardiac Electrophysiology 02/06/25 documented as of this encounter
--- NOTE | 2025-05-26 09:17 | HO.ANESPROP2 ---
Documented by User: Nichole Zurita NP 05/26/25 09:19 HPI - Anesthesia Eval Consult details Narrative: 69yo M for Colonoscopy s/p hernia repair 03/2025 with GA-LMA 4 PAT prior: No CP/SOB with bike riding couple times per week, stair climbing for laundry. Atrial fibrillation: on eliquis, will hold 3 days prior. Last saw cardiology (Dr. Preciado, [facility]) 02/10/[address] Man 02/06/25; recently had both echo showing mild LVH & normal nuclear stress test. Optimized by cardiology at 02/10/25 visit, stating he is low risk for moderate risk procedure. COPD: follows with pulmonary, now on Anoro, using albuterol twice daily. Optimized for surgery as moderate risk with pulmonary at 12/10/24 visit FAISAL: +STOP BANG, going for sleep study May 2025 [facility] Active Problems Active Problems: All Active Problems S/P inguinal hernia repair (Acute) Right inguinal hernia (Acute) Past Medical History Medical History Right inguinal hernia Bilateral hip pain Back pain Hx of concussion COPD (chronic obstructive pulmonary disease) PAF (paroxysmal atrial fibrillation) Paranoid personality disorder Thrombasthenia Psoriatic arthritis Overweight Hyponatremia Hyperlipemia Diverticula of colon Alcohol abuse Anxiety Hypercholesterolemia Hypertension Family History Family History Father Pancreatic cancer Family history of problems with anesthesia: No Surgical History Surgical History Hx of right inguinal hernia repair (03/12/25) Hx of colonoscopy (~2009) History of Problems with Anesthesia: No Social History Social History Household Members: None Housing: House Are you a primary pet care attendant to a significant other at home: No Do you presently have visiting nurse or other home services: No Comment: counts correct Patient Tobacco Use Status: Current everyday Tobacco user Tobacco use type: Cigarette Cigarettes Per Day: 10 Smoked in Last 30 Days: Yes e-Cigarette/Vaping Use: Currently Using Patient Interested in Nicotine Replacement: No Have you been hit, kicked, punched, or otherwise hurt by someone within the past year? If so, by whom?: No Are you DNR?: No Advance Directives: No Advance Directives Information Provided: Yes Meds Allergies Allergy/AdvReac Type Severity Reaction Status Date / Time No Known Allergies Allergy Verified 05/28/25 09:11 Home Medications ?Medication ?Instructions ?Recorded ?Confirmed ?Last Taken ?Type atorvastatin 10 mg tablet 10 mg PO DAILY 09/18/24 05/26/25 Unknown History cholecalciferol (vitamin D3) 25 25 mcg PO DAILY 09/18/24 05/26/25 Unknown History mcg (1,000 unit) capsule hydroxyzine HCl 25 mg tablet 25 mg PO BID PRN Anxiety 09/18/24 05/26/25 Unknown History nipufukf-mrd-lknvo 120 mcg-lutein 1 tab PO DAILY 09/18/24 05/26/25 Unknown History 150 mcg-herb 50 mg chewable tablet (Alive Men's 50 Plus Multivitamin) omega 5-bqi-cvm-fish oil 1,000 mg 1 cap PO DAILY 09/18/24 05/26/25 05/25/25 History (120 mg-180 mg) capsule (Fish Oil) albuterol sulfate 90 mcg/actuation 2 puff inhalation Q4-6H PRN 02/23/25 05/26/25 Unknown History aerosol inhaler Shortness Of Breath Or Wheezing apixaban 5 mg tablet (Eliquis) 5 mg PO BID 02/23/25 05/26/25 05/25/25 History metoprolol tartrate 50 mg tablet 50 mg PO BID 02/23/25 05/26/25 05/28/25 History risankizumab-rzaa 150 mg/mL 150 mg subcut Q12W 02/23/25 05/26/25 Unknown History subcutaneous pen injector (Skyrizi) umeclidinium 62.5 mcg-vilanterol 1 ea inhalation DAILY 02/23/25 05/26/25 Unknown History 25 mcg/actuation powdr for inhalation (Anoro Ellipta) Exam Narrative Narrative: Stress test with myocardial perfusion 07/2024 Normal EF 73%; no ischemia Echo 11/2024 Discrete upper septal thickening chordal SHANTEL, mild LVOT obstruction during Valsalva. Gradient 7 at rest, 25 with Valsalva. EF 65-70%. No wall motion abnormalites. Tachycardia present. Normal RV. No pulmonary hypertension. EKG 02/10/25 Sinus marzena, rate 56 Small inferior Q waves When compared with ECG 02/06/25 sinus rhythm replaced afib Assessment and Plan Assessment Anesthesia Assessment: Chart Reviewed Final Anesthetic Review Family History of Problems with Anesthesia: No History of Problems with Anesthesia: No Documented by User: Sandrine Ingram MD 05/28/25 10:48 [facility] Past Medical History Medical History Right inguinal hernia Bilateral hip pain Back pain Hx of concussion COPD (chronic obstructive pulmonary disease) PAF (paroxysmal atrial fibrillation) Paranoid personality disorder Thrombasthenia Psoriatic arthritis Overweight Hyponatremia Hyperlipemia Diverticula of colon Alcohol abuse Anxiety Hypercholesterolemia Hypertension Family History Family History Father Pancreatic cancer Surgical History Surgical History Hx of right inguinal hernia repair (03/12/25) Hx of colonoscopy (~2009) Social History Social History Household Members: None Housing: House Are you a primary pet care attendant to a significant other at home: No Do you presently have visiting nurse or other home services: No Comment: counts correct Patient Tobacco Use Status: Current everyday Tobacco user Tobacco use type: Cigarette Cigarettes Per Day: 10 Smoked in Last 30 Days: Yes e-Cigarette/Vaping Use: Currently Using Patient Interested in Nicotine Replacement: No Have you been hit, kicked, punched, or otherwise hurt by someone within the past year? If so, by whom?: No Are you DNR?: No Advance Directives: No Advance Directives Information Provided: Yes Meds Allergies Allergy/AdvReac Type Severity Reaction Status Date / Time No Known Allergies Allergy Verified 05/28/25 09:11 Home Medications ?Medication ?Instructions ?Recorded ?Confirmed ?Last Taken ?Type atorvastatin 10 mg tablet 10 mg PO DAILY 09/18/24 05/26/25 Unknown History cholecalciferol (vitamin D3) 25 25 mcg PO DAILY 09/18/24 05/26/25 Unknown History mcg (1,000 unit) capsule hydroxyzine HCl 25 mg tablet 25 mg PO BID PRN Anxiety 09/18/24 05/26/25 Unknown History fqsuhgnj-bxz-gaesg 120 mcg-lutein 1 tab PO DAILY 09/18/24 05/26/25 Unknown History 150 mcg-herb 50 mg chewable tablet (Alive Men's 50 Plus Multivitamin) omega 4-fri-bdk-fish oil 1,000 mg 1 cap PO DAILY 09/18/24 05/26/25 05/25/25 History (120 mg-180 mg) capsule (Fish Oil) albuterol sulfate 90 mcg/actuation 2 puff inhalation Q4-6H PRN 02/23/25 05/26/25 Unknown History aerosol inhaler Shortness Of Breath Or Wheezing apixaban 5 mg tablet (Eliquis) 5 mg PO BID 02/23/25 05/26/25 05/25/25 History metoprolol tartrate 50 mg tablet 50 mg PO BID 02/23/25 05/26/25 05/28/25 History risankizumab-rzaa 150 mg/mL 150 mg subcut Q12W 02/23/25 05/26/25 Unknown History subcutaneous pen injector (Skyrizi) umeclidinium 62.5 mcg-vilanterol 1 ea inhalation DAILY 02/23/25 05/26/25 Unknown History 25 mcg/actuation powdr for inhalation (Anoro Ellipta) Exam Airway Mallampati Class: III TM Dist: >3cm Neck ROM: Full Heart: rrr Lungs: cta Assessment and Plan Assessment Anesthesia Assessment: Anesthesia Plan Discussed Final Anesthetic Review NPO: Yes ASA Class: III Final Preanesthetic Review: No Changes in Pt Med Stat, Meds/Allgs Chart Reviewed, Consent Obtained/Reviewed and Anes Risks/Benef Reviewed Patient Risk: Intermediate Procedure Risk: Low Anesthetic Plan Anesthetic Plan: MAC: Disposition: Standard PACU
[2025-05-26 14:06] VITALS: BMI 30.6
[2025-05-28 09:01] VITALS: BMI 28.6
[2025-05-28] MEDS: Lactated Ringers 1,000 ML 100 ML IVCONT (09:26)
[2025-05-28 09:27] VITALS: BP 132/84; PULSE 55; RESP 18; TEMP 36.6; O2SAT 96
--- NOTE | 2025-05-28 10:37 | MHC.SHP ---
Pre-Procedural Eval Section A - 24 Hr Update-Section A only Date of Service: 05/28/25 Section B - Complete if H&P > 30 days Chief Complaint: screening Relevant Family History (Specify if Yes): No Relevant Social History: Tobacco Use Present Medications: see Short Stay Collaborative assessment Medical History: Significant History ( Bilateral hip pain Back pain Hx of concussion COPD (chronic obstructive pulmonary disease) PAF (paroxysmal atrial fibrillation) Paranoid personality disorder Thrombasthenia Psoriatic arthritis Overweight Hyponatremia Hyperlipemia Diverticula of colon Alcohol abuse Anxiety Hypercholesterolemia Hyper) History of Previous Operations: Relevant previous surgery/procedure and date(s) (Hx of colonoscopy (~2009)) Allergies: Allergies Allergy/AdvReac Type Severity Reaction Status Date / Time No Known Allergies Allergy Verified 05/28/25 09:11 Review of Systems Sugical H&P ROS: Negative: Constitution, Cardiovascular, Respiratory, Neurological, Psychiatric, Hem-Onc, Allergic/Immunologic, Gastrointestinal, Genitourinary, Musculoskeletal, Integumentary, Endocrine and Eyes/Ears/Nose/Throat Exam Surgical H&P Exam: Normal: HEENT, Normal: Heart, Normal: Lungs, Normal: Extremities, Normal: Abdomen, Normal: Skin and Normal: Neurological Plan Diagnosis/Plan: Unchanged I have reviewed the history and physical and performed a pertinent physical examination on my patient. No changes have occurred unless specified. Time Spent With Patient Time: Total time managing care of this patient today ____ minutes.
--- NOTE | 2025-05-28 11:10 | P.OPN-COLO_ITS ---
Colonoscopy Operative Note Operative Note Date of Service: 05/28/25 Narrative: Operative Information Procedure Description: Colonoscopy Indication: screening Anesthesia: MAC COLONOSCOPY Instrument: Olympus variable stiffness pediatric scope 190L Colonoscopy Monitoring: Vital signs and clinical assessment, continuous EKG monitoring, Pulse oximetry, Carbon Dioxide monitoring and blood pressure monitoring were done throughout the procedure. Colon withdrawal time was 6 minutes. Procedure: The patient was placed in the left lateral decubitis position and pre-procedure medications were administered. After a digital rectal examination of the ano-rectum, the video colonoscope was inserted into the rectum and advanced through the colon to the cecum/TI. The colonoscope was slowly withdrawn in a retrograde panoramic fashion and the colon mucosa was carefully examined including a retroflexed view of the rectum. Findings and interventions are described below. Procedure Difficulty: easy Findings: Terminal Ileum-normal Cecum:normal Ascending Colon: normal Transverse Colon -normal Descending Colon:normal Sigmoid Colon: moderate severe diverticulosis with luminal narrowing, x 2 sessile polyps 8-10 mm lifted with eleview and removed with cold snare, x 1 clip applied for hemostasis Rectum: Retroflexion with small internal hemorrhoids seen, grade I Anorectum - normal Intervention: cold snare and eleview for EMR, clip Colon preparation: [place] Bowel Preparation Scale Right colon; 2 Transverse colon: 2 Left colon; 2 (0 = Unprepared colon segment with mucosa not seen due to solid stool that cannot be cleared. 1 = Portion of mucosa of the colon segment seen, but other areas of the colon segment not well seen due to staining, residual stool and/or opaque liquid. 2 = Minor amount of residual staining, small fragments of stool and/or opaque liquid, but mucosa of colon segment seen well. 3 = Entire mucosa of colon segment seen well with no residual staining, small fragments of stool or opaque liquid) Impression and Post Procedure Diagnosis: diverticulosis colon polyps x 2 internal hemorrhoids Plan: High fiber diet leaflet Avoid straining at stool, epsom salts and sitz bath, anusol supps or cream Repeat Colonoscopy in 5 years or earlier if clinically indicated Can restart eliquis tomorrow evening Above findings were reviewed with the patient and relevant handouts were provided if indicated.
[2025-05-28 11:16] VITALS: BP 114/61; PULSE 59; RESP 12; TEMP 36.1; O2SAT 96
[2025-05-28 11:30] VITALS: BP 108/56; PULSE 57; RESP 16; TEMP 36.1; O2SAT 93
== END 2025-05-28 12:06 | disposition home or self-care (01) ==
PROVIDERS: PCP Physician Assistant Medical; Visit Provider Internal Medicine Gastroenterology
PROC: 0DJD8ZZ Inspection of Lower Intestinal Tract, Via Natural or Artificial Opening Endoscopic (ICD-10-PCS; CPT 45378; principal; 2025-05-28 11:00)
DX: Z12.11 Encounter for screening for malignant neoplasm of colon (principal); K57.30 Diverticulosis of large intestine without perforation or abscess without bleeding; K64.0 First degree hemorrhoids; D12.5 Benign neoplasm of sigmoid colon
CPT/HCPCS: 45385; 45381; 88305; J2003; J2704

== ENCOUNTER → 2025-05-28 08:01 | Outpatient (BNV) | payer MEDICARE, SELFPAY | PROVIDERS: PCP Physician Assistant Medical; Visit Provider Internal Medicine Gastroenterology | DX: Z12.11 Encounter for screening for malignant neoplasm of colon (principal); K63.5 Polyp of colon; K57.30 Diverticulosis of large intestine without perforation or abscess without bleeding; K64.0 First degree hemorrhoids | CPT/HCPCS: 45385 ==